=== PATIENT | female | born 1960 | race Caucasian/White ===

== ENCOUNTER → 2017-09-30 | Outpatient (CLI) | payer OTHER ==
[~2017-09-30] MED LIST: ASPCH81
[2017-09-30 10:41] LABS: BASO % 0.6 %; BASO ABS # 0.04 K/uL (0-0.2); EOS % 9.7 %; EOS ABS # 0.69 K/uL (0-0.5); HEMOGLOBIN 14.7 g/dL (12.0-16.0); IG# 0.01 K/uL (0.00-0.02); LYMPH % 39.5 %; LYMPH ABS # 2.82 K/uL (1.2-3.4); MEAN CELL VOLUME 85.8 fL (80-100); MEAN CORPUSCULAR HEMOGLOBIN 29.3 pg (25-34); MEAN CORPUSCULAR HGB CONC 34.2 g/dl (32-36); MONO % 5.7 %; MONO ABS # 0.41 K/uL (0.11-0.59); NEUT % 44.4 %; NEUT ABS # 3.17 K/uL (1.4-6.5); PLATELET COUNT 209 K/uL (130-400); RED CELL DISTRIBUTION WIDTH CV 14.1 % (11.5-14.5); RED CELL DISTRIBUTION WIDTH SD 43.6 fL (36.4-46.3); WHITE BLOOD COUNT 7.14 K/uL (4.8-10.8)
[2017-09-30 10:58] LABS: ALBUMIN 3.7 gm/dl (3.4-5.0); ALT/SGPT 39 U/L (12-78); BLOOD UREA NITROGEN 15 mg/dl (7-18); CALCIUM 8.8 mg/dl (8.5-10.1); CARBON DIOXIDE 29 mmol/L (21-32); CHOLESTEROL 192 mg/dl (0-200); CREATININE 0.93 mg/dl (0.60-1.20); GLUCOSE 93 mg/dl (70-99); POTASSIUM 3.9 mmol/L (3.5-5.1); SODIUM 140 mmol/L (136-145)
[2017-09-30 11:08] LABS: ALKALINE PHOSPHATASE 96 U/L (45-117); AST/SGOT 17 U/L (15-37); LDL CHOLESTEROL CALCULATED 125 mg/dl; TOTAL PROTEIN 7.1 gm/dl (6.4-8.2)
== END | disposition home or self-care (01) ==
LOC: C.LABBC 07:37
PROVIDERS: ATTEND Neuromusculoskeletal Medicine & OMM
DX: E78.00 Pure hypercholesterolemia, unspecified (principal); E66.9 Obesity, unspecified

== ENCOUNTER → 2017-11-09 | Outpatient (CLI) | payer OTHER ==
--- NOTE | 2017-11-10 07:41 | MAMMOGRAPHY REPORT ---
BILATERAL DIGITAL SCREENING MAMMOGRAM TOMOSYNTHESIS WITH CAD: 11/09/2017 CLINICAL HISTORY: Routine screening. Patient has no complaints. TECHNIQUE: Breast tomosynthesis in addition to standard 2D mammography was performed. Current study was also evaluated with a Computer Aided Detection (CAD) system. COMPARISON: Comparison is made to exams dated: 02/05/2015 mammogram, 02/01/2014 mammogram, 01/31/2013 mamm ogram, 01/29/2012 mammogram, 01/27/2011 mammogram, and 01/24/2010 mammogram - [facility] er. BREAST COMPOSITION: The tissue of both breasts is almost entirely fatty. FINDINGS: The parenchymal pattern is unchanged. No developing mass, architectural distortion or clus ter of suspicious microcalcifications is seen in either breast. IMPRESSION: ACR BI-RADS CATEGORY 2: BENIGN There is no mammographic evidence of malignancy. A 1 year screening mammogram is recommended. The pa tient will receive written notification of the results. Approximately 10% of breast cancers are not detected with mammography. A negative mammographic report should not delay biopsy if a clinically suggestive mass is present. Nichelle Cotto M.D. ay/:11/09/2017 16:20:43 Rope Coiling Machine Operator: Coby SAGE(Willian)(Corky), [facility] letter sent: Normal 1/2 BI-RADS Code: ACR BI-RADS Category 2: Benign
== END | disposition home or self-care (01) ==
LOC: C.MAMM 13:33
PROVIDERS: ATTEND Neuromusculoskeletal Medicine & OMM
DX: Z12.31 Encounter for screening mammogram for malignant neoplasm of breast (principal)

== ENCOUNTER 2021-02-20 14:20 | Observation (INO) ==
--- NOTE | 2021-02-20 16:23 | Emergency Department Note ---
Impression & Plan Inferior vena cava thromboembolism, Iliac DVT (deep venous thrombosis), Acute leg pain ED Provider Note NAME: CATARINA COTA AGE: 60 SEX: F : 1960 ARRIVES VIA: Walk-In INFORMANT: Patient, ED PROVIDER(S): John Alves MD Chief Complaint: Leg pain and swelling HPI: Patient does present with concern for right lower extremity leg pain and swelling. The patient states it typically is exertional with regards to the pain with activity and does develop some swelling which seem to resolve with keeping her feet up. 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 This was in the left lower extremity. Patient denies any fevers chills chest pains or shortness of breath. Patient denies any nausea vomiting. The patient states that this all began the day after 03 February and she had been being more active and thought it was more musculoskeletal. The patient was seen at [facility] had a negative DVT ultrasound was seen in the outpatient setting by her primary care physician Dr. Alvarez who thought that the patient was suffering from a ?piriformis/peroneal syndrome and subsequently had a pelvis adjustment. The patient states that she thought her posture improved but she was still having pain as well as swelling with ambulation. Patient describes the pain is aching primarily worse with going up an incline or stairs. Patient states that she has some discoloration of the right lower extremity today called the office and was referred here for further evaluation and treatment. ROS: See HPI for pertinent positives and negatives. A total of 10 systems were reviewed and otherwise negative. Past medical history: See below Surgical history: See below Social history: See below Physical Exam: GENERAL: Well appearing, well nourished, NAD, non-toxic. Wearing glasses and a mask. EYE EXAM: Normal conjunctiva. PERRL, no anisocoria and EOM's grossly intact w/o pain. NECK: Supple, no nuchal rigidity, no adenopathy, non-tender. No signs of meni ngismus. LUNGS: Clear to auscultation. Normal chest wall mechanics. HEART: NSR, no MRG. ABDOMEN: Abdomen soft, non-tender, normo-active bowel sounds, no masses, no rebound or guarding. BACK: No CVA TTP. SKIN: No rashes and no bruising. UPPER EXTREMITIES: Upper extremities are grossly normal. LOWER EXTREMITIES: Good DP pulse bilaterally, slight cooler to the touch on the right side compared to the left. Negative Homans' sign, no obvious asymmetry. No sensory deficits. NEURO EXAM: A&O x3, cranial nerves II-XII grossly intact, normal speech, moves all 4 extremities on command w/o issue. Differential diagnoses: DVT, arterial clot, musculoskeletal, infection, joint effusion, trauma, lymphedema, idiopathic, CHF, as well as other pathologies. Course: Patient was seen and evaluated the bedside. Full history physical exam was performed. EKG: Normal sinus rhythm, rate of 74, normal intervals, normal axis, no ST changes or T WI. Imaging Studies: See below Cardiac monitoring: An order was placed for continuous cardiac monitoring. The monitor shows a rate of 78 with sinus rhythm. MDM: Patient does present febrile or lower extremity edema and discoloration. The patient symptoms could be consistent with MSK related discomfort versus possible claudication. Patient does have a prior history of DVT secondary to May Thurner syndrome and was subsequently resolved after a year of taking Xarelto. Blood work was obtained EKG was obtained to rule out the possibility of arrhythmia i.e . thromboembolic arrhythmia. The patient did have an arterial as well as venous Doppler study of her right lower extremity. She had ultrasounds, which are negative. Due to the concern for the patient's explanation of persistent swelling and discoloration with ambulation I did discuss a CT scan which the patient was amenable to. Patient did have a CT of the abdomen pelvis completed which did show IVC and iliac clot. I did speak with the on-call vascular surgeon Dr. Rob who stated that the patient may be continued on heparin but no further intervention at this time. I did speak with the on-call hospitalist Dr. Valencia and the patient was admitted to the medicine service. Critical Care: I have personally spent 52 minutes of critical care time in direct management of this patient. This includes bedside care, interpretation of diagnostic studies, and testing, discussion with consultants, patient, and family members, and other require inpatient management activities. This 52 minutes is in excess of all separately billable procedures. Past Med/Surg History Medical History (Updated 02/20/21 @ 21:42 by John Alves MD) Chronic back pain History of Lyme disease Psoriasis Surgical History H/O tubal ligation History of hysterectomy Hx of colonoscopy Hx of tonsillectomy S/P section Family History Father Myocardial infarction Cardiac disorder Mother Alcohol abuse COPD (chronic obstructive pulmonary disease) Liver cancer Gallbladder disease Grandmother (Maternal) Alcohol abuse Cardiac disorder COPD (chronic obstructive pulmonary disease) Liver cancer Myocardial infarction Anxiety Gallbladder disease Family/Other History of blood clots Sister Anxiety Gallbladder disease Denies family history of Ovarian cancer Prostate cancer Breast cancer Colorectal cancer Social History Smoking Status: Never smoker Second Hand Exposure: No; Hx Alcohol Use: No Hx Substance Use: No Preferred Language: Icelandic Communication Ability: Effective Visual Impairment: No Limitations Hearing Ability: Normal marital status: Current Living Situation: Spouse current occupational status: employed 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 Safe at Home: Yes Childhood Exposure to Second-Hand Smoke: Yes Dental Care, Regularly: Yes Physical Activity Frequency: Daily Seatbelt Use: always Sunscreen Use: Yes Allergies Allergies Allergy/AdvReac Type Severity Reaction Status Date / Time No Known Allergies Allergy Unknown Verified 02/18/21 11:21 Home Meds Home Medications Medication Instructions Recorded Confirmed multivitamin 1 tab PO DAILY 05/22/18 02/20/21 aspirin 81 mg tablet,delayed 81 mg PO QPM 02/20/21 02/20/21 release docusate sodium 100 mg capsule 100 mg PO DAILY 02/20/21 02/20/21 (Stool Softener) omega-3 fatty acids 1 cap PO DAILY 02/20/21 02/20/21 Previous Rx's Medication Instructions Recorded propranolol 20 mg tablet 20 mg PO BID #180 tab 01/02/21 Results & Data (ED) Vital Signs Vital Signs - 24 hr 02/20/21 14:30 02/20/21 16:41 02/20/21 17:00 Temperature 36.9 C Temperature Source Oral Pulse Rate 80 73 76 Pulse Rate from SpO2 Sensor 75 76 Respiratory Rate 18 20 20 Blood Pressure 189/79 H 148/88 H 159/83 H Blood Pressure Mean 115 108 108 Pulse Oximetry 99 99 98 Oxygen Delivery Method Room Air Sepsis Recent Fever Within 48 Hours No Sepsis New/Unexplained Change in Mental Status No Sepsis Action Taken by Nursing No Action Required 02/20/21 17:33 02/20/21 17:35 02/20/21 19:30 Temperature Temperature Source Pulse Rate 71 74 Pulse Rate from SpO2 Sensor 70 74 Respiratory Rate 18 20 Blood Pressure 149/84 H 155/96 H Blood Pressure Mean 105 115 Pulse Oximetry 99 98 98 Oxygen Delivery Method Room Air Sepsis Recent Fever Within 48 Hours Sepsis New/Unexplained Change in Mental Status Sepsis Action Taken by Nursing 02/20/21 20:00 02/20/21 20:57 02/20/21 21:00 Temperature Temperature Source Pulse Rate 81 78 83 Pulse Rate from SpO2 Sensor 80 Respiratory Rate 20 19 20 Blood Pressure 164/102 H 165/87 H 164/92 H Blood Pressure Mean 122 113 116 Pulse Oximetry 98 98 98 Oxygen Delivery Method Sepsis Recent Fever Within 48 Hours Sepsis New/Unexplained Change in Mental Status Sepsis Action Taken by Long Term Medications Current Medication List: was personally reviewed by me Laboratory Data Attestation: I reviewed the patient's lab results. Result diagrams: 02/20/21 17:06 02/20/21 17:06 Lab Results 02/20/21 02/20/21 02/20/21 Range/Units 17:06 17:06 20:50 WBC 10.02 (4.8-10.8) K/uL RBC 4.95 (4.2-5.4) M/uL Hgb 14.8 (12.0-16.0) g/dL Hct 43.5 (37-47) % MCV 87.9 (80-100) fL MCH 29.9 (25-34) pg MCHC 34.0 (32-36) g/dL RDW Std Deviation 44.4 (36.4-46.3) fL RDW Coeff of Jenelle 13.7 (11.5-14.5) % Plt Count 251 (130-400) K/uL MPV 10.7 H (7.4-10.4) fL Immature Gran % (Auto) 0.2 % Neut % (Auto) 65.6 % Lymph % (Auto) 25.7 % Whitfield % (Auto) 4.3 % Eos % (Auto) 4.0 % Baso % (Auto) 0.2 % Neut # (Auto) 6.57 H (1.4-6.5) K/uL Lymph # (Auto) 2.58 (1.2-3.4) K/uL Whitfield # (Auto) 0.43 (0.11-0.59) K/uL Eos # (Auto) 0.40 (0-0.5) K/uL Baso # (Auto) 0.02 (0-0.2) K/uL Immature Gran # (Auto) 0.02 (0.00-0.02) K/uL APTT 28.0 (21.0-31.0) Seconds PTT Ratio 1.1 Sodium 141 (136-145) mmol/L Potassium 4.0 (3.5-5.1) mmol/L Chloride 108 H (98-107) mmol/L Carbon Dioxide 29 (21-32) mmol/L Anion Gap 4.0 (3-11) BUN 13 (7-18) mg/dl Creatinine 0.97 (0.6-1.2) mg/dl Est Cr Clr Drug Dosing 70.8 ml/min Est GFR ( Amer) 74.1 ml/min Est GFR (Non-Af Amer) 63.9 ml/min BUN/Creatinine Ratio 13.3 (10-20) Glucose 108 H (70-99) mg/dl Calcium 9.6 (8.5-10.1) mg/dl Total Bilirubin 0.5 (0.2-1) mg/dl AST 24 (15-37) U/L ALT 42 (12-78) U/L Alkaline Phosphatase 132 H (45-117) U/L Total Protein 7.8 (6.4-8.2) gm/dl Albumin 3.9 (3.4-5.0) gm/dl Globulin 3.9 (2.5-4.0) gm/dl Albumin/Globulin Ratio 1.0 (0.9-2) COVID-19 Eval Order 02/20/21 Range/Units 21:15 WBC (4.8-10.8) K/uL RBC (4.2-5.4) M/uL Hgb (12.0-16.0) g/dL Hct (37-47) % MCV (80-100) fL MCH (25-34) pg MCHC (32-36) g/dL RDW Std Deviation (36.4-46.3) fL RDW Coeff of Jenelle (11.5-14.5) % Plt Count (130-400) K/uL MPV (7.4-10.4) fL Immature Gran % (Auto) % Neut % (Auto) % Lymph % (Auto) % Whitfield % (Auto) % Eos % (Auto) % Baso % (Auto) % Neut # (Auto) (1.4-6.5) K/uL Lymph # (Auto) (1.2-3.4) K/uL Whitfield # (Auto) (0.11-0.59) K/uL Eos # (Auto) (0-0.5) K/uL Baso # (Auto) (0-0.2) K/uL Immature Gran # (Auto) (0.00-0.02) K/uL APTT (21.0-31.0) Seconds PTT Ratio Sodium (136-145) mmol/L Potassium (3.5-5.1) mmol/L Chloride (98-107) mmol/L Carbon Dioxide (21-32) mmol/L Anion Gap (3-11) BUN (7-18) mg/dl Creatinine (0.6-1.2) mg/dl Est Cr Clr Drug Dosing ml/min Est GFR ( Amer) ml/min Est GFR (Non-Af Amer) ml/min BUN/Creatinine Ratio (10-20) Glucose (70-99) mg/dl Calcium (8.5-10.1) mg/dl Total Bilirubin (0.2-1) mg/dl AST (15-37) U/L ALT (12-78) U/L Alkaline Phosphatase (45-117) U/L Total Protein (6.4-8.2) gm/dl Albumin (3.4-5.0) gm/dl Globulin (2.5-4.0) gm/dl Albumin/Globulin Ratio (0.9-2) COVID-19 Eval Order Covid19 at [facility] Administered Medications Heparin Sodium/Dextrose (Heparin Sodium/Dextrose) 25,000 units in 500 mls @ 0.02 mls/hr IV .Q24H [facility]; Protocol Stop: 03/22/21 20:14 Last Admin: 02/20/21 20:56 Dose: 1,300 units/hr, 26 mls/hr Documented by: [id number] Cosigned by: [id number] Discontinued Medications Heparin Sodium/Dextrose (Heparin Iv Adult Wt-Based Standard *No* Bolus Protocol) 1 ea IV ONE ONE; Protocol Stop: 02/20/21 19:55 Last Admin: 02/20/21 20:57 Dose: Not Given Documented by: [id number] Ioversol (Optiray 320 100ml) 93 ml IV ONCE ONE Stop: 02/20/21 19:17 Last Admin: 02/20/21 19:17 Dose: 93 ml Documented by: [id number] Imaging Data Radiologist's Impression: Duplex Scan Lower Extremity Artery 02/20/21 16:35 RIGHT LOWER EXTREMITY ARTERIAL DOPPLER ULTRASOUND CLINICAL HISTORY: ? signs of claudication COMPARISON STUDY: No previous studies for comparison. TECHNIQUE: Grayscale, color and duplex Doppler sonography of the arterial system of the right lower extremity was performed. FINDINGS: There is triphasic flow within the right common femoral, profunda, superficial femoral and popliteal arteries with biphasic flow within the posterior tibial, anterior tibial, peroneal and dorsalis pedis vessels. No elevated velocities are identified. No vessel occlusion is noted within the right lower extremity. IMPRESSION: Unremarkable right lower extremity arterial Doppler ultrasound. No evidence for a stenosis. Patent vessels. ACT 112: Negative or not required by law. Electronically signed by: Shalom Byrd M.D. 02/20/2021 6:25 PM Venous Doppler Study 02/20/21 16:35 RIGHT LOWER EXTREMITY VENOUS DOPPLER CLINICAL HISTORY: leg pain/swelling COMPARISON STUDY: No previous studies for comparison. TECHNIQUE: Sonography of the deep venous system of the right lower extremity was performed. Compression and augmentation were evaluated. FINDINGS: The right common femoral, superficial femoral and popliteal veins were compressible. Augmentation was normal. Flow was shown within the deep calf vessels. IMPRESSION: No evidence of deep venous thrombus within the right lower ex tremity. ACT 112: Negative or not required by law. Electronically signed by: Shalom Byrd M.D. 02/20/2021 6:17 PM Abdomen/Pelvis CT 02/20/21 18:40 CT OF THE ABDOMEN AND PELVIS WITH CONTRAST CLINICAL HISTORY: RLE swelling/discoloration, negative DVT/art dopp COMPARISON STUDY: CT venogram of the abdomen and pelvis May 22, 2018. TECHNIQUE: Following IV administration of 93 mL of Optiray, axial images of the abdomen and pelvis were obtained from the lung bases to the proximal femurs. Images were reviewed in the axial, sagittal, and coronal planes. IV contrast was administered without complication. Automated exposure control was utilized for the study. A dose lowering technique was utilized adhering to the principles of ALARA. CT DOSE: 588.36 mGy.cm FINDINGS: Lung bases are unremarkable. No pneumatosis, free air or portal venous gas is present. There is hepatic steatosis. The spleen, adrenal glands, kidneys and pancreas are normal. There is no biliary or pancreatic ductal dilatation. The caliber and wall thickness of small and large bowel are normal. The appendix is normal. There is minimal infiltration within the right hemipelvis. Prominent vessels within the pelvis are noted suggestive of collaterals. Note is made of a stent within the left common iliac vein that extends into the IVC. There is thrombus, likely occlusive, within the right common iliac vein. This thrombus extends to the confluence and extends into the stented portion of the IVC. This results in approximate 40% narrowing of the IVC. Thrombus extends into the right external iliac and internal iliac veins. Right common femoral vein is patent. The remainder of the left iliac stent is patent. IMPRESSION: 1. Extensive deep venous thrombus within the right common iliac, internal iliac and external iliac veins, likely occlusive. Thrombus extends into the stented portion of the inferior vena cava and results in 40% narrowing of the IVC. Remainder of left common iliac vein stent patent. Mild right hemipelvic infiltration likely due to the thrombus with prominent collateral vessels. Discussed with Dr. Alves at time of dictation. 3. Hepatic steatosis. ACT 112: Negative or not required by law. Electronically signed by: Shalom Byrd M.D. 02/20/2021 7:50 PM Discharge Plan Visit Data Chief Complaint: Swelling/Edema to Extremity Stated Complaint: R LEG RED AND SWOLLEN, REFERRED BY DOCTOR ED Provider: John Alves Discharge Problem: Inferior vena cava thromboembolism, Iliac DVT (deep venous thrombosis), Acute leg pain Forms Stand Alone Forms: My [facility] Prescriptions Prescriptions: No Action propranolol 20 mg tablet 20 mg PO BID Qty: 180 RF: 1 multivitamin Tablet 1 tab PO DAILY RF: 0 aspirin 81 mg Tablet,Delayed Release (Dr/Ec) 81 mg PO QPM RF: 0 Fish Oil Capsule 1 cap PO DAILY RF: 0 docusate sodium [Stool Softener] 100 mg Capsule 100 mg PO DAILY RF: 0 Referrals Referrals: Yoni Alvarez, [Primary Care Provider] -
[2021-02-20 17:18] LABS: Basophils # (auto) 0.02 K/uL (0-0.2); Basophils % (auto) 0.2 %; Hematocrit (blood only) 43.5 % (37-47); Hemoglobin 14.8 g/dL (12.0-16.0); Immature Granulocytes # (auto) 0.02 K/uL (0.00-0.02); Immature Granulocytes % (auto) 0.2 %; Lymphocytes # (auto) 2.58 K/uL (1.2-3.4); Lymphocytes % (auto) 25.7 %; Mean Corpuscular Hemoglobin 29.9 pg (25-34); Mean Corpuscular Volume 87.9 fL (80-100); Mean Platelet Volume 10.7 fL (7.4-10.4); Monocytes # (auto) 0.43 K/uL (0.11-0.59); Monocytes % (auto) 4.3 %; Neutrophils # (auto) 6.57 K/uL (1.4-6.5); Neutrophils % (auto) 65.6 %; Platelet Count 251 K/uL (130-400); RDW Coefficient of Variation 13.7 % (11.5-14.5); RDW Standard Deviation 44.4 fL (36.4-46.3); Red Blood Count 4.95 M/uL (4.2-5.4); White Blood Count 10.02 K/uL (4.8-10.8)
[2021-02-20 17:36] LABS: Albumin Level 3.9 gm/dl (3.4-5.0); BUN Creatinine Ratio 13.3 (10-20); Calcium 9.6 mg/dl (8.5-10.1); Creatinine Clr Calc Pharmacy 70.8 ml/min; Est GFR (African American) 74.1 ml/min; Est GFR (Non-African American) 63.9 ml/min
[2021-02-20 17:39] LABS: Bilirubin,Total 0.5 mg/dl (0.2-1); Globulin 3.9 gm/dl (2.5-4.0); Total Protein 7.8 gm/dl (6.4-8.2)
--- NOTE | 2021-02-20 18:18 | Ultrasound Report ---
RIGHT LOWER EXTREMITY VENOUS DOPPLER CLINICAL HISTORY: leg pain/swelling COMPARISON STUDY: No previous studies for comparison. TECHNIQUE: Sonography of the deep venous system of the right lower extremity was performed. Compress ion and augmentation were evaluated. FINDINGS: The right common femoral, superficial femoral and popliteal veins were compressible. Augme ntation was normal. Flow was shown within the deep calf vessels. IMPRESSION: No evidence of deep venous thrombus within the right lower extremity. ACT 112: Negative or not required by law. Electronically signed by: Shalom Byrd M.D. 02/20/2021 6:17 PM
--- NOTE | 2021-02-20 18:27 | Ultrasound Report ---
RIGHT LOWER EXTREMITY ARTERIAL DOPPLER ULTRASOUND CLINICAL HISTORY: ? signs of claudication COMPARISON STUDY: No previous studies for comparison. TECHNIQUE: Grayscale, color and duplex Doppler sonography of the arterial system of the right lower e xtremity was performed. FINDINGS: There is triphasic flow within the right common femoral, profunda, superficial femoral and popliteal arteries with biphasic flow within the posterior tibial, anterior tibial, peroneal and dors jessika pedis vessels. No elevated velocities are identified. No vessel occlusion is noted within the ri ght lower extremity. IMPRESSION: Unremarkable right lower extremity arterial Doppler ultrasound. No evidence for a stenos is. Patent vessels. ACT 112: Negative or not required by law. Electronically signed by: Shalom Byrd M.D. 02/20/2021 6:25 PM
[2021-02-20] MEDS ORDERED: OPTIRAY 320 100ml IV ONE (19:16)
--- NOTE | 2021-02-20 19:52 | CT Scan Report ---
CT OF THE ABDOMEN AND PELVIS WITH CONTRAST CLINICAL HISTORY: RLE swelling/discoloration, negative DVT/art dopp COMPARISON STUDY: CT venogram of the abdomen and pelvis May 22, 2018. TECHNIQUE: Following IV administration of 93 mL of Optiray, axial images of the abdomen and pelvis we re obtained from the lung bases to the proximal femurs. Images were reviewed in the axial, sagittal, and coronal planes. IV contrast was administered without complication. Automated exposure control wa s utilized for the study. A dose lowering technique was utilized adhering to the principles of ALARA . CT DOSE: 588.36 mGy.cm FINDINGS: Lung bases are unremarkable. No pneumatosis, free air or portal venous gas is present. Ther e is hepatic steatosis. The spleen, adrenal glands, kidneys and pancreas are normal. There is no bili subha or pancreatic ductal dilatation. The caliber and wall thickness of small and large bowel are norm al. The appendix is normal. There is minimal infiltration within the right hemipelvis. Prominent vess els within the pelvis are noted suggestive of collaterals. Note is made of a stent within the left co mmon iliac vein that extends into the IVC. There is thrombus, likely occlusive, within the right comm on iliac vein. This thrombus extends to the confluence and extends into the stented portion of the IV C. This results in approximate 40% narrowing of the IVC. Thrombus extends into the right external joshua ac and internal iliac veins. Right common femoral vein is patent. The remainder of the left iliac konstantin nt is patent. IMPRESSION: 1. Extensive deep venous thrombus within the right common iliac, internal iliac and external iliac ve ins, likely occlusive. Thrombus extends into the stented portion of the inferior vena cava and result s in 40% narrowing of the IVC. Remainder of left common iliac vein stent patent. Mild right hemipelvi c infiltration likely due to the thrombus with prominent collateral vessels. Discussed with Dr. Alves at time of dictation. 3. Hepatic steatosis. ACT 112: Negative or not required by law. Electronically signed by: Shalom Byrd M.D. 02/20/2021 7:50 PM
[2021-02-20] MEDS ORDERED: Heparin IV Adult Wt-Based Standard *NO* Bolus Protocol IV ONE (19:54)
--- NOTE | 2021-02-20 20:23 | History & Physical Report ---
Date of Service February 20, 2021 Assessment & Plan (1) Iliac DVT (deep venous thrombosis): Plan: Ms. 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, diagnosed in 10/2018 at [facility] following diagnosis of extensive left lower extremity DVT involving the iliac, femoral, popliteal, and tibial veins; she did undergo left common iliac angioplasty/stenting and also was on Xarelto for a total of 1 year (end 2018) Patient reporting approximately 1 month of claudication-like symptoms involving the RLE Venous and arterial Dopplers obtained of the right lower extremity unrevealing CT of the abdomen pelvis demonstrating: "Extensive deep venous thrombus within the right common iliac, internal iliac and external iliac veins, likely occlusive. Thrombus extends into the stented portion of the inferior vena cava and results in 40% narrowing of the IVC. Remainder of left common iliac vein stent patent. Mild right hemipelvic infiltration likely due to the thrombus with prominent collateral vessels." Consult vascular surgery for aid in management upon discharge from the hospital, including need for likely chronic anticoagulation, as well as need for any further imaging Initiate heparin drip while here, started in ER Hypertension, ASCVD prevention Continue propranolol 20 mg p.o. twice daily Continue daily aspirin Code: Full code Diet: Regular diet Prophylaxis: Heparin drip, as above Disposition: MedSurg (2) Raynaud's phenomenon: (3) Hypertension: (4) Situational anxiety: (5) Chronic back pain: History of Present Illness Primary Care Provider: Yoni Alvarez DO Ms. 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 She says that since February 03, she has been experiencing exertionally related pain and swelling within her right leg. Initially, this was thought to be musculoskeletal and did undergo some adjustments with her primary care provider with positive results. However, pain recurred and has gotten worse with exertion, such as with going up stairs. Given her history, she wanted to come to the ER for evaluation. In the ER, patient was found to be hemodynamically stable and without abnormal labs. Arterial duplex and venous duplex involving the right lower extremity did not reveal any focal abnormalities. However, imaging of the abdomen and pelvis did reveal "extensive deep vein thrombosis within the right common iliac, internal iliac, and external iliac veins, likely occlusive." It appears that this extends to the stent that was previously placed in the IVC, resulting in nearly 40% narrowing. Patient was started on heparin gtt. Allergies Allergy/AdvReac Type Severity Reaction Status Date / Time No Known Allergies Allergy Unknown Verified 02/18/21 11:21 Home Medications Medication Instructions Recorded Confirmed Type multivitamin 1 tab PO DAILY 05/22/18 02/20/21 History propranolol 20 mg tablet 20 mg PO BID #180 tab 01/02/21 02/20/21 Rx aspirin 81 mg tablet,delayed 81 mg PO QPM 02/20/21 02/20/21 History release docusate sodium 100 mg capsule 100 mg PO DAILY 02/20/21 02/20/21 History (Stool Softener) omega-3 fatty acids 1 cap PO DAILY 02/20/21 02/20/21 History Past Med/Surg History Medical History Chronic back pain History of Lyme disease Psoriasis Surgical History H/O tubal ligation History of hysterectomy Hx of colonoscopy Hx of tonsillectomy S/P section Family History Father Myocardial infarction Cardiac disorder Mother Alcohol abuse COPD (chronic obstructive pulmonary disease) Liver cancer Gallbladder disease Grandmother (Maternal) Alcohol abuse Cardiac disorder COPD (chronic obstructive pulmonary disease) Liver cancer Myocardial infarction Anxiety Gallbladder disease Family/Other History of blood clots Sister Anxiety Gallbladder disease Denies family history of Ovarian cancer Prostate cancer Breast cancer Colorectal cancer Social History Smoking Status: Never smoker Second Hand Exposure: No; Hx Alcohol Use: No Hx Substance Use: No Preferred Language: Portuguese Communication Ability: Effective Visual Impairment: No Limitations Hearing Ability: Normal Beliefs That Will Affect Care: None marital status: Current Living Situation: Spouse current occupational status: employed 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 Other Information That Helps Us Care for You: No Feels Safe at Home: Yes Safety Concerns: Feels Safe At This Time Childhood Exposure to Second-Hand Smoke: Yes Dental Care, Regularly: Yes Physical Activity Frequency: Daily Seatbelt Use: always Sunscreen Use: Yes Assistive Devices: Glasses Review of Systems Review of Systems: Constitutional: Denies fever, chills Eyes: Denies double vision, vision change, eye pain ENT: Denies ear pain, sore throat, sinus pain Cardiovascular: Denies chest pain, chest pressure, palpitations, extremity swelling Respiratory: Denies shortness of breath, cough, sputum production, difficulty breathing Gastrointestinal: Denies abdominal pain, nausea, vomiting, constipation, diarrhea Genitourinary: Denies urinary symptoms including dysuria Musculoskeletal: Denies weakness, muscle aches/pain, joint aches/pain Integumentary:Denies rash, lesions, bruising Neurological: Denies headache, numbness, tingling, focal weakness Physical Exam Physical Exam: General: Well appearing 60 year old female who is lying back in her hospital bed, relaxed, upon my arrival. NAD. HEENT: NCAT. Eyes - Sclera are white, anicteric, and without injection. PERRL. EOMs display full ROM bilaterally. Mouth - MMM with no tonsillar edema or exudates. Cardiac: Normal rate and regular rhythm; S1 and S2 present with no murmurs, rubs, or gallops. Pulmonary: Good respiratory effort with symmetric expansion of the chest. No use of accessory muscles. Lungs were clear to auscultation bilaterally with no crackles or wheezes. Abdominal: Normoactive bowel sounds. Abdomen was soft, nondistended, and non- tender to palpation. Extremities: Examination of the RLE does demonstrate globally increased edema compared to the LLE. Examination of the underside of the foot does demonstrate purplish discoloration with +blanching. No tenderness to palpation along this leg. Dorsalis pedis pulse 2+ on the RLE, slightly diminished on LLE. Femoral pulse somewhat difficult to palpate on RLE, but is present / 1+ -- suspect diminished secondary to edema. Results & Data Results & Data ([facility]) Vital Signs (Past 12 Hours) Vital Signs Temp Pulse Resp BP Pulse Ox 02/20/21 19:30 74 20 155/96 H 98 02/20/21 17:35 98 02/20/21 17:33 71 18 149/84 H 99 02/20/21 17:00 76 20 159/83 H 98 02/20/21 16:41 73 20 148/88 H 99 02/20/21 14:30 36.9 C 80 18 189/79 H 99 Supervising Physician Co-Signing Physician Notes Attending addendum: I have physically seen this patient, have supervised the medical residents activities, and agree with the H&P unless as otherwise noted. Assessment and Plan: DVT right common iliac veins, internal and external iliac veins/stented left common iliac and IVC- Continue heparin continuous infusion since already begun by the ED. Can likely change to Xarelto that she was on before again tomorrow Vascular surgery will assess patient in the a.m. Hypertension- Continue propranolol 20 mg p.o. twice daily and aspirin daily Remaining orders and notations as noted Resident Activity Tracking Resident Involvement: Resident Care Provided Care Provided: Adult [facility]
[2021-02-20] MEDS: HEPARIN SODIUM/DEXTROSE 25,000 UNITS/500 ML BAG IV SCH (20:56)
[2021-02-20 21:29] LABS: Partial Thromboplastin Ratio 1.1
[2021-02-21] MEDS ORDERED: POLYETHYLENE (MIRALAX) 17 GM PACK PO PRN (00:26)
[2021-02-21] MEDS ORDERED: ACETAMINOPHEN 325 MG TAB PO PRN (00:26)
[2021-02-21] MEDS ORDERED: ONDANSETRON INJ 2 MG/ML 2 ML VIAL IV PRN (00:26)
[2021-02-21 03:01] LABS: Basophils # (auto) 0.02 K/uL (0-0.2); Basophils % (auto) 0.2 %; Eosinophils # (auto) 0.34 K/uL (0-0.5); Eosinophils % (auto) 3.9 %; Hematocrit (blood only) 40.2 % (37-47); Hemoglobin 13.5 g/dL (12.0-16.0); Immature Granulocytes # (auto) 0.02 K/uL (0.00-0.02); Immature Granulocytes % (auto) 0.2 %; Lymphocytes # (auto) 3.24 K/uL (1.2-3.4); Lymphocytes % (auto) 37.6 %; Mean Corpuscular Hemoglobin 29.4 pg (25-34); Mean Corpuscular Hgb Conc 33.6 g/dL (32-36); Mean Corpuscular Volume 87.6 fL (80-100); Mean Platelet Volume 10.4 fL (7.4-10.4); Monocytes # (auto) 0.54 K/uL (0.11-0.59); Monocytes % (auto) 6.3 %; Neutrophils # (auto) 4.46 K/uL (1.4-6.5); Neutrophils % (auto) 51.8 %; Platelet Count 231 K/uL (130-400); RDW Coefficient of Variation 13.8 % (11.5-14.5); RDW Standard Deviation 44.2 fL (36.4-46.3); Red Blood Count 4.59 M/uL (4.2-5.4); White Blood Count 8.62 K/uL (4.8-10.8)
[2021-02-21 03:24] LABS: BUN Creatinine Ratio 14.4 (10-20); Calcium 8.8 mg/dl (8.5-10.1); Creatinine Clr Calc Pharmacy 83.4 ml/min; Est GFR (African American) 90.8 ml/min; Est GFR (Non-African American) 78.3 ml/min; Potassium 3.5 mmol/L (3.5-5.1)
[2021-02-21 03:26] LABS: Partial Thromboplastin Ratio 1.9
[2021-02-21 03:28] LABS: Partial Thromboplastin Time 49.4 Seconds (21.0-31.0)
--- NOTE | 2021-02-21 08:36 | Consultation ---
Date of Consultation February 21, 2021 Assessment & Plan (1) Iliac DVT (deep venous thrombosis): In summary this is a 60-year-old female who was treated for may Thurner syndrome in the past.This was treated with stenting of the left iliac vein with extension of the stent at the proximal inferior vena cava.She is now developed thrombosis of her right common external and internal iliac veins. I would continue heparin for another [address] her on Xarelto for at least 6 months with routine follow-up with imaging of the iliac system. Thrombolysis with tissue plasminogen activator is not indicated at this time be that she has a left iliac stent which extends into the vena cava. No vena cava filter is needed at this point being that she does have a stent present in the vena cava which she is acting as a filter at this point. She should follow-up with her vascular surgeon with [facility] after discharge. Thank you very much for letting us participate in the care of this patient. Chronicity: acute Laterality: right Qualified Code(s): I82.421 - Acute embolism and thrombosis of right iliac vein History of Present Illness Reason for Consultation: Right iliac venous thrombosis Attending Physician: Sandoval Conley MD History of Present Illness This is a 60-year-old female who started developing swelling of her right lower extremity proximally 2 weeks prior to this. She was seen in [place] and worked up with ultrasounds of her bilateral lower extremity venous systems as well as her left iliac system.She was told at that time that she had no evidence of deep venous thrombosis of the lower extremity. The left iliac as well as the iliac and cava stent were patent.In 2018 she developed deep venous thrombosis of the left lower extremity.She was placed on heparin followed by Xarelto. The clot eventually cleared up.She was found to have a May Thurner syndrome which was treated with stenting of the iliac.The iliac stent however extended well into the vena cava.She has been fine since that time with no evidence of deep venous thrombosis until this episode.CT scan done in the emergency room showed deep venous thrombosis of her external/internal iliac veins on the right side.The common iliac vein on the right was also thrombosed.Her left side showed that the iliacs are patent. The left common iliac stent was also patent. The stent however extends from the common iliac vein well into the vena cava above the confluence of the right and left iliac vein. Allergies Allergy/AdvReac Type Severity Reaction Status Date / Time No Known Allergies Allergy Unknown Verified 02/18/21 11:21 Home Medications Medication Instructions Recorded Confirmed Type multivitamin 1 tab PO DAILY 05/22/18 02/20/21 History propranolol 20 mg tablet 20 mg PO BID #180 tab 01/02/21 02/20/21 Rx aspirin 81 mg tablet,delayed 81 mg PO QPM 02/20/21 02/20/21 History release docusate sodium 100 mg capsule 100 mg PO DAILY 02/20/21 02/20/21 History (Stool Softener) omega-3 fatty acids 1 cap PO DAILY 02/20/21 02/20/21 History Patient History Medical History Chronic back pain History of Lyme disease Psoriasis Surgical History H/O tubal ligation History of hysterectomy Hx of colonoscopy Hx of tonsillectomy S/P section Family History Father Myocardial infarction Cardiac disorder Mother Alcohol abuse COPD (chronic obstructive pulmonary disease) Liver cancer Gallbladder disease Grandmother (Maternal) Alcohol abuse Cardiac disorder COPD (chronic obstructive pulmonary disease) Liver cancer Myocardial infarction Anxiety Gallbladder disease Family/Other History of blood clots Sister Anxiety Gallbladder disease Denies family history of Ovarian cancer Prostate cancer Breast cancer Colorectal cancer Social History Smoking Status: Never smoker Second Hand Exposure: No; Hx Alcohol Use: No Hx Substance Use: No Preferred Language: Korean Communication Ability: Effective Visual Impairment: No Limitations Hearing Ability: Normal Beliefs That Will Affect Care: None marital status: Current Living Situation: Spouse current occupational status: employed 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 Other Information That Helps Us Care for You: No Feels Safe at Home: Yes Safety Concerns: Feels Safe At This Time Childhood Exposure to Second-Hand Smoke: Yes Dental Care, Regularly: Yes Physical Activity Frequency: Daily Seatbelt Use: always Sunscreen Use: Yes Assistive Devices: Glasses Review of Systems Review of Systems: All systems reviewed & are unremarkable except as noted in HPI & below Physical Exam Constitutional: WD/WN, vitals as above Respiratory: normal respiratory effort; no respiratory distress Cardiovascular: Rate/Rhythm: regular rate and regular rhythm Vessels: normal peripheral pulses Extremities: normal capillary refill and + edema (Entire right lower extremity.) Musculoskeletal: Extremities: extremities normal to inspection; no cyanosis Psychiatric: Orientation: alert and oriented x 3 Results & Data ([facility]) Vital Signs (Past 12 Hours) Vital Signs Temp Pulse Pulse Resp BP BP BP 02/21/21 07:46 36.7 C 71 18 124/75 02/21/21 01:06 36.7 C 81 18 141/81 H 02/20/21 22:30 83 14 139/96 02/20/21 22:00 78 14 132/92 02/20/21 21:30 72 12 131/90 02/20/21 21:00 83 20 164/92 H 02/20/21 20:57 78 19 165/87 H Pulse Ox 02/21/21 07:46 99 02/21/21 01:06 98 02/20/21 22:30 98 02/20/21 22:00 98 02/20/21 21:30 98 02/20/21 21:00 98 02/20/21 20:57 98
--- NOTE | 2021-02-21 08:45 | Electrocardiogram Report ---
Test Reason : Blood Pressure : / mmHG Vent. Rate : 074 BPM Atrial Rate : 074 BPM P-R Int : 170 ms QRS Dur : 092 ms QT Int : 418 ms P-R-T Axes : 035 015 024 degrees QTc Int : 463 ms Normal sinus rhythm Incomplete right bundle branch block Borderline ECG When compared with ECG of 22-MAY-2018 11:21, No significant change was found Confirmed by Piotr Orantes ([id number]) on 02/21/2021 8:45:25 AM Referred By: Yoni Alvarez Confirmed By:Piotr Orantes
--- NOTE | 2021-02-21 09:25 | Medical Student Progress Note ---
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, diagnosed in 10/2018 at [facility] following diagnosis of extensive left lower extremity DVT involving the iliac, femoral, popliteal, and tibial veins; she did undergo left common iliac angioplasty/stenting and also was on Xarelto for a total of 1 year (end 2018) Patient reporting approximately 1 month of claudication-like symptoms involving the RLE Venous and arterial Dopplers obtained of the right lower extremity unrevealing CT of the abdomen pelvis demonstrating: "Extensive deep venous thrombus within the right common iliac, internal iliac and external iliac veins, likely occlusive. Thrombus extends into the stented portion of the inferior vena cava and results in 40% narrowing of the IVC. Remainder of left common iliac vein stent patent. Mild right hemipelvic infiltration likely due to the thrombus with prominent collateral vessels." -Vascular surgery consulted: recommends continuing heparin for 24h, then Xarelto for >6mo with routine f/u & imaging of her iliacs. She should be fitted for compression stockings to be worn up to her right thigh. Does not recommend vena filter at this time since she has one placed. She should f/u with vascular surgeon with [facility] after discharge -- Consult appreciated -Continue heparin drip Hypertension, ASCVD prevention: Continue propranolol 20 mg p.o. twice daily Continue daily aspirin Code: Full code Diet: Regular diet Prophylaxis: Heparin drip, as above Disposition: [facility] Chronicity: acute Laterality: right Qualified Code(s): I82.421 - Acute embolism and thrombosis of right iliac vein Admission and Anticipated Discharge Date Admission Date: February 20, 2021 Subjective Overall, patient says she's doing well. Resting comfortably in bed while seeing her. She says her right leg feels a bit warm and swollen, as it had been before admission, but does not feel that she is worsening. Leg pain is most prominent when she is on her feet. She does not endorse any current leg pain, numbness, or tingling of the extremities, shortness of breath, chest pain, or palpitations. Review of Systems Review of Systems: All systems reviewed & are unremarkable except as noted in Subjective Physical Exam Physical Exam: General: Well appearing 60 year old female who is lying back in her hospital bed, relaxed, upon my arrival. NAD. Cardiac: Normal rate and regular rhythm; S1 and S2 present with no murmurs, rubs, or gallops. Pulmonary: Good respiratory effort with symmetric expansion of the chest. No use of accessory muscles. Lungs were clear to auscultation bilaterally with no crackles or wheezes. Extremities: Examination of the RLE does demonstrate globally increased edema compared to the LLE. Slight discoloration of the right extremity with blanching. No tenderness to palpation along this leg. Dorsalis pedis pulse 2+ on the RLE. Constitutional: WD/WN, vitals as above Respiratory: normal respiratory effort; no respiratory distress Cardiovascular: Rate/Rhythm: regular rate and regular rhythm Vessels: normal peripheral pulses Extremities: normal capillary refill and + edema (Entire right lower extremity.) Musculoskeletal: Extremities: extremities normal to inspection; no cyanosis Psychiatric: Orientation: alert and oriented x 3 Results & Data ([facility]) Vital Signs (Past 12 Hours) Vital Signs Temp Pulse Pulse Resp BP BP BP 02/21/21 07:46 36.7 C 71 18 124/75 02/21/21 01:06 36.7 C 81 18 141/81 H 02/20/21 22:30 83 14 139/96 02/20/21 22:00 78 14 132/92 02/20/21 21:30 72 12 131/90 Pulse Ox 02/21/21 07:46 99 02/21/21 01:06 98 02/20/21 22:30 98 02/20/21 22:00 98 02/20/21 21:30 98 Laboratory Results Laboratory Results WBC 8.62 K/uL (4.8-10.8) 02/21/21 02:45 RBC 4.59 M/uL (4.2-5.4) 02/21/21 02:45 Hgb 13.5 g/dL (12.0-16.0) 02/21/21 02:45 Hct 40.2 % (37-47) 02/21/21 02:45 MCV 87.6 fL (80-100) 02/21/21 02:45 MCH 29.4 pg (25-34) 02/21/21 02:45 MCHC 33.6 g/dL (32-36) 02/21/21 02:45 RDW Std Deviation 44.2 fL (36.4-46.3) 02/21/21 02:45 RDW Coeff of Jenelle 13.8 % (11.5-14.5) 02/21/21 02:45 Plt Count 231 K/uL (130-400) 02/21/21 02:45 MPV 10.4 fL (7.4-10.4) 02/21/21 02:45 Immature Gran % (Auto) 0.2 % 02/21/21 02:45 Neut % (Auto) 51.8 % 02/21/21 02:45 Lymph % (Auto) 37.6 % 02/21/21 02:45 [place] % (Auto) 6.3 % 02/21/21 02:45 Eos % (Auto) 3.9 % 02/21/21 02:45 Baso % (Auto) 0.2 % 02/21/21 02:45 Neut # (Auto) 4.46 K/uL (1.4-6.5) 02/21/21 02:45 Lymph # (Auto) 3.24 K/uL (1.2-3.4) 02/21/21 02:45 [place] # (Auto) 0.54 K/uL (0.11-0.59) 02/21/21 02:45 Eos # (Auto) 0.34 K/uL (0-0.5) 02/21/21 02:45 Baso # (Auto) 0.02 K/uL (0-0.2) 02/21/21 02:45 Immature Gran # (Auto) 0.02 K/uL (0.00-0.02) 02/21/21 02:45 APTT 49.4 Seconds (21.0-31.0) H* 02/21/21 02:45 PTT Ratio 1.9 02/21/21 02:45 Sodium 140 mmol/L (136-145) 02/21/21 02:45 Potassium 3.5 mmol/L (3.5-5.1) 02/21/21 02:45 Chloride 108 mmol/L (98-107) H 02/21/21 02:45 Carbon Dioxide 28 mmol/L (21-32) 02/21/21 02:45 Anion Gap 4.0 (3-11) 02/21/21 02:45 BUN 12 mg/dl (7-18) 02/21/21 02:45 Creatinine 0.82 mg/dl (0.6-1.2) 02/21/21 02:45 Est Cr Clr Drug Dosing 83.4 ml/min 02/21/21 02:45 Est GFR ( Amer) 90.8 ml/min 02/21/21 02:45 Est GFR (Non-Af Amer) 78.3 ml/min 02/21/21 02:45 BUN/Creatinine Ratio 14.4 (10-20) 02/21/21 02:45 Glucose 100 mg/dl (70-99) H 02/21/21 02:45 Calcium 8.8 mg/dl (8.5-10.1) 02/21/21 02:45 Total Bilirubin 0.5 mg/dl (0.2-1) 02/20/21 17:06 AST 24 U/L (15-37) 02/20/21 17:06 ALT 42 U/L (12-78) 02/20/21 17:06 Alkaline Phosphatase 132 U/L (45-117) H 02/20/21 17:06 Total Protein 7.8 gm/dl (6.4-8.2) 02/20/21 17:06 Albumin 3.9 gm/dl (3.4-5.0) 02/20/21 17:06 Globulin 3.9 gm/dl (2.5-4.0) 02/20/21 17:06 Albumin/Globulin Ratio 1.0 (0.9-2) 02/20/21 17:06 COVID-19 Eval Order Covid19 at [facility] 02/20/21 21:15 SARS-CoV-2 (PCR) NEGATIVE (Negative) 02/20/21 21:15 Impressions Duplex Scan Lower Extremity Artery 02/20/21 16:35 RIGHT LOWER EXTREMITY ARTERIAL DOPPLER ULTRASOUND CLINICAL HISTORY: ? signs of claudication COMPARISON STUDY: No previous studies for comparison. TECHNIQUE: Grayscale, color and duplex Doppler sonography of the arterial system of the right lower extremity was performed. FINDINGS: There is triphasic flow within the right common femoral, profunda, superficial femoral and popliteal arteries with biphasic flow within the posterior tibial, anterior tibial, peroneal and dorsalis pedis vessels. No eleva collin velocities are identified. No vessel occlusion is noted within the right lower extremity. IMPRESSION: Unremarkable right lower extremity arterial Doppler ultrasound. No evidence for a stenosis. Patent vessels. ACT 112: Negative or not required by law. Electronically signed by: Shalom Byrd M.D. 02/20/2021 6:25 PM Venous Doppler Study 02/20/21 16:35 RIGHT LOWER EXTREMITY VENOUS DOPPLER CLINICAL HISTORY: leg pain/swelling COMPARISON STUDY: No previous studies for comparison. TECHNIQUE: Sonography of the deep venous system of the right lower extremity was performed. Compression and augmentation were evaluated. FINDINGS: The right common femoral, superficial femoral and popliteal veins were compressible. Augmentation was normal. Flow was shown within the deep calf vessels. IMPRESSION: No evidence of deep venous thrombus within the right lower extremity. ACT 112: Negative or not required by law. Electronically signed by: Shalom Byrd M.D. 02/20/2021 6:17 PM Abdomen/Pelvis CT 02/20/21 18:40 CT OF THE ABDOMEN AND PELVIS WITH CONTRAST CLINICAL HISTORY: RLE swelling/discoloration, negative DVT/art dopp COMPARISON STUDY: CT venogram of the abdomen and pelvis May 22, 2018. TECHNIQUE: Following IV administration of 93 mL of Optiray, axial images of the abdomen and pelvis were obtained from the lung bases to the proximal femurs. Images were reviewed in the axial, sagittal, and coronal planes. IV contrast was administered without complication. Automated exposure control was utilized for the study. A dose lowering technique was utilized adhering to the principles of ALARA. CT DOSE: 588.36 mGy.cm FINDINGS: Lung bases are unremarkable. No pneumatosis, free air or portal venous gas is present. There is hepatic steatosis. The spleen, adrenal glands, kidneys and pancreas are normal. There is no biliary or pancreatic ductal dilatation. The caliber and wall thickness of small and large bowel are normal. The appendix is normal. There is minimal infiltration within the right hemipelvis. Prominent vessels within the pelvis are noted suggestive of collaterals. Note is made of a stent within the left common iliac vein that extends into the IVC. There is thrombus, likely occlusive, within the right common iliac vein. This thrombus extends to the confluence and extends into the stented portion of the IVC. This results in approximate 40% narrowing of the IVC. Thrombus extends into the right external iliac and internal iliac veins. Right common femoral vein is patent. The remainder of the left iliac stent is patent. IMPRESSION: 1. Extensive deep venous thrombus within the right common iliac, internal iliac and external iliac veins, likely occlusive. Thrombus extends into the stented portion of the inferior vena cava and results in 40% narrowing of the IVC. Remainder of left common iliac vein stent patent. Mild right hemipelvic infil tration likely due to the thrombus with prominent collateral vessels. Discussed with Dr. Alves at time of dictation. 3. Hepatic steatosis. ACT 112: Negative or not required by law. Electronically signed by: Shalom Byrd M.D. 02/20/2021 7:50 PM Medications Administered Current Inpatient Medications Acetaminophen (Acetaminophen 325 Mg Tab) 650 mg PO Q4H PRN PRN Reason: pain/fever Stop: 03/23/21 00:25 Aspirin (Aspirin 81 Mg Ectab) 81 mg PO QPM DENA Stop: 03/23/21 20:59 Docusate Sodium (Docusate Sodium 100 Mg Cap) 100 mg PO DAILY DENA Stop: 03/23/21 08:59 Fish Oil (Garita-3 (Purified Fish Oil) 1 Gm Cap) 1 gm PO DAILY DENA Stop: 03/23/21 08:59 Heparin Sodium/Dextrose (Heparin Sodium/Dextrose) 25,000 units in 500 mls @ 26 mls/hr IV .[id number] DENA; Protocol Stop: 03/22/21 20:14 Last Titration: 02/21/21 03:00 Dose: 1,300 units/hr, 26 mls/hr Documented by: Multivitamins (Multivitamin Tab) 1 tab PO DAILY DENA Stop: 03/23/21 08:59 Ondansetron HCl (Ondansetron Inj 2 Mg/Ml 2 Ml Vial) 4 mg IV Q6H PRN PRN Reason: Nausea Stop: 03/23/21 00:25 Polyethylene Glycol (Polyethylene (Miralax) 17 Gm Pack) 17 gm PO DAILY PRN PRN Reason: Constipation Stop: 03/23/21 00:25 Propranolol HCl (Propranolol Hcl 20 Mg Tab) 20 mg PO BID DENA Stop: 03/23/21 08:59
[2021-02-21] MEDS: MULTIVITAMIN TAB PO SCH (09:34)
[2021-02-21] MEDS: OMEGA-3 (PURIFIED FISH OIL) 1 GM CAP PO SCH (09:34)
[2021-02-21] MEDS: DOCUSATE SODIUM 100 MG CAP PO SCH (09:34)
[2021-02-21] MEDS: PROPRANOLOL HCL 20 MG TAB PO SCH ×2 (09:35→21:06)
[2021-02-21] MEDS: HEPARIN SODIUM/DEXTROSE 25,000 UNITS/500 ML BAG IV SCH (16:07)
[2021-02-21 19:36] LABS: Basophils # (auto) 0.02 K/uL (0-0.2); Basophils % (auto) 0.3 %; Eosinophils # (auto) 0.33 K/uL (0-0.5); Eosinophils % (auto) 4.3 %; Hematocrit (blood only) 40.4 % (37-47); Hemoglobin 13.6 g/dL (12.0-16.0); Immature Granulocytes # (auto) 0.01 K/uL (0.00-0.02); Immature Granulocytes % (auto) 0.1 %; Lymphocytes # (auto) 3.02 K/uL (1.2-3.4); Lymphocytes % (auto) 39.3 %; Mean Corpuscular Hemoglobin 29.3 pg (25-34); Mean Corpuscular Volume 87.1 fL (80-100); Mean Platelet Volume 10.7 fL (7.4-10.4); Monocytes # (auto) 0.59 K/uL (0.11-0.59); Monocytes % (auto) 7.7 %; Neutrophils # (auto) 3.72 K/uL (1.4-6.5); Neutrophils % (auto) 48.3 %; Platelet Count 217 K/uL (130-400); RDW Coefficient of Variation 13.9 % (11.5-14.5); RDW Standard Deviation 44.3 fL (36.4-46.3); Red Blood Count 4.64 M/uL (4.2-5.4); White Blood Count 7.69 K/uL (4.8-10.8)
--- NOTE | 2021-02-21 19:36 | Billing Data ---
Date of Service February 21, 2021 Coding Level of Care Code 16005 Subseq Obs Care Lvl 3
[2021-02-21 19:39] LABS: Mean Corpuscular Hgb Conc 33.7 g/dL (32-36)
--- NOTE | 2021-02-21 19:48 | Billing Data ---
Date of Service February 21, 2021 Coding Level of Care Code INT OBSERVATION CARE 70M LVL 3
[2021-02-21 19:56] LABS: Partial Thromboplastin Ratio 2.1
[2021-02-21 20:14] LABS: Partial Thromboplastin Time 54.8 Seconds (21.0-31.0)
[2021-02-21] MEDS ORDERED: ASPIRIN 81 MG ECTAB PO SCH (21:00)
[2021-02-22] MEDS: DOCUSATE SODIUM 100 MG CAP PO SCH (08:58)
[2021-02-22] MEDS: PROPRANOLOL HCL 20 MG TAB PO SCH (08:58)
[2021-02-22] MEDS: OMEGA-3 (PURIFIED FISH OIL) 1 GM CAP PO SCH (08:58)
[2021-02-22] MEDS: MULTIVITAMIN TAB PO SCH (08:58)
[2021-02-22] MEDS ORDERED: RIVAROXABAN 15 MG TAB PO SCH (09:00)
[2021-02-22 09:07] LABS: Basophils # (auto) 0.03 K/uL (0-0.2); Basophils % (auto) 0.5 %; Eosinophils # (auto) 0.35 K/uL (0-0.5); Eosinophils % (auto) 5.5 %; Hematocrit (blood only) 42.9 % (37-47); Hemoglobin 14.3 g/dL (12.0-16.0); Immature Granulocytes # (auto) 0.01 K/uL (0.00-0.02); Immature Granulocytes % (auto) 0.2 %; Lymphocytes # (auto) 2.57 K/uL (1.2-3.4); Mean Corpuscular Hemoglobin 29.4 pg (25-34); Mean Corpuscular Hgb Conc 33.3 g/dL (32-36); Mean Corpuscular Volume 88.1 fL (80-100); Mean Platelet Volume 10.9 fL (7.4-10.4); Monocytes % (auto) 6.2 %; Neutrophils # (auto) 3.06 K/uL (1.4-6.5); Neutrophils % (auto) 47.6 %; Platelet Count 229 K/uL (130-400); RDW Standard Deviation 45.4 fL (36.4-46.3); Red Blood Count 4.87 M/uL (4.2-5.4); White Blood Count 6.42 K/uL (4.8-10.8)
--- NOTE | 2021-02-22 09:22 | Discharge Summary ---
Date of Service February 22, 2021 Admission HPI Per Admitting Provider Ms. Feliciano is a 60-year-old female with a notable history of May Thurner syndrome and related, extensive left lower extremity DVT discovered in May 2018 involving her iliac, femoral, popliteal, and tibial veins that were subsequently treated with Xarelto and angioplasty/stenting in October 2018, Presented to [facility] for evaluation of ongoing RIGHT leg pain. She says that since February 03, she has been experiencing exertionally related pain and swelling within her right leg. Initially, this was thought to be musculoskeletal and did undergo some adjustments with her primary care provider with positive results. However, pain recurred and has gotten worse with exertion, such as with going up stairs. Given her history, she wanted to come to the ER for evaluation. In the ER, patient was found to be hemodynamically stable and without abnormal labs. Arterial duplex and venous duplex involving the right lower extremity did not reveal any focal abnormalities. However, imaging of the abdomen and pelvis did reveal "extensive deep vein thrombosis within the right common iliac, internal iliac, and external iliac veins, likely occlusive." It appears that this extends to the stent that was previously placed in the IVC, resulting in nearly 40% narrowing. Patient was started on heparin gtt. Admission Exam Per Admitting Provider General: Well appearing 60 year old female who is lying back in her hospital bed, relaxed, upon my arrival. NAD. HEENT: NCAT. Eyes - Sclera are white, anicteric, and without injection. PERRL. EOMs display full ROM bilaterally. Mouth - MMM with no tonsillar edema or exudates. Cardiac: Normal rate and regular rhythm; S1 and S2 present with no murmurs, rubs, or gallops. Pulmonary: Good respiratory effort with symmetric expansion of the chest. No use of accessory muscles. Lungs were clear to auscultation bilaterally with no crackles or wheezes. Abdominal: Normoactive bowel sounds. Abdomen was soft, nondistended, and non- tender to palpation. Extremities: Examination of the RLE does demonstrate globally increased edema compared to the LLE. Examination of the underside of the foot does demonstrate purplish discoloration with +blanching. No tenderness to palpation along this leg. Dorsalis pedis pulse 2+ on the RLE, slightly diminished on LLE. Femoral pulse somewhat difficult to palpate on RLE, but is present / 1+ -- suspect diminished secondary to edema. Principal Diagnosis DVT Discharge Exam Constitutional: well-appearing, no acute distress CV: regular rhythm, no murmur appreciated, extremities well-perfused Resp: CTABL, no wheezes/rales/rhonchi appreciated, no increased work of breathing MSK: RLE slightly larger than LLE, minimally increased warmth to the touch fo RLE vs LLE, minimal tenderness of RLE, trace pitting edema appreciated Skin: warm, dry, no rash appreciated Neuro: AOx4, no focal neurological deficits appreciated Discharge Data Allergies Allergy/AdvReac Type Severity Reaction Status Date / Time No Known Allergies Allergy Unknown Verified 02/18/21 11:21 Consultations 02/20/21 20:10 ED Decision to Admit Stat 02/21/21 00:26 Consult Vascular Surgery Routine Ordered Studies 02/20/21 16:35 US arterial duplex LE RT Stat US venous doppler LE RT Stat 02/20/21 18:40 CT abd pelvis IV con only Stat Hospital Course (1) Iliac DVT (deep venous thrombosis): DVT involving the R Iliac System and IVC Patient was placed on a heparin drip, and vascular was consulted; their recommendation was for patient to continue heparin drip for 24 hours followed by discharge with Xarelto and follow-up. Patient had an uneventful hospital course and was discharged on hospital day two in stable condition. Patient was discharged with a 21-day course of Xarelto 15mg twice daily, after which patient will reduce her dose/frequency to Xarelto 20mg once daily. Given patient's history of May-Thurner syndrome and history of extensive LLE DVT requiring left common iliac angioplasty/stent placement, we feel it is most appropriate for patient to be continued on anticoagulants indefinitely. Patient was counseled on this possibility and both understood and agreed with this recommendation. Close PCP follow-up was recommended. Hypertension, ASCVD prevention Patient's home dose propranolol and ASA were continued during this hospitalization. (2) Raynaud's phenomenon: (3) Hypertension: (4) Situational anxiety: (5) Chronic back pain: Total Time Total Time Spent Total Time Spent (In Minutes): <30 Discharge Plan Discharge Items Patient Disposition: Home - Self-Care Reason For Visit: DVT OF R ILIAC SYS Discharge Diagnosis: DVT Activity: Resume your previous activity Non-emergency contact: Primary Care Provider Call non-emergency contact if: your symptoms worsen Follow-up/Referrals: Yoni Alvarez DO [Primary Care Provider] - 03/06/21 9:20 am Antonio Rob MD [Physician] - (Follow up with your vascular surgeon from [facility] If any questions, you can call our office at [phone]) Diet: Regular Addtl Attending Provider Instructions: You were admitted to the hospital for DVT (deep vein thrombosis, or a clot in one of your veins). This is suspected to be largely due to your known history of May-Thurner syndrome. You were treated in the hospital with IV heparin, and you were evaluated by our vascular team. We feel it is very safe for you to continue your treatment at home with Xarelto. As previously discussed, you will likely need to be on Xarelto for a long period of time, possibly indefinitely. You've been provided with a Xarelto savings card to help reduce your gzo-vv-jxzkdt cost of this medicine, as it can be expensive. When the end of this 90-day savings program is approaching, it will be very important for you to talk with your PCP to explore additional ways you can continue to receive Xarelto at an affordable turner. A discharge summary will be sent to your primary care physician to ensure continuity of care. Please bring this discharge summary with you to your next office appointment so that your provider can review it at that time. Follow-up appointments: Make a follow-up appointment with your PCP within the next week. It is very important that you follow up with them shortly after discharge from the hospital. Keep all your follow-up appointments as already scheduled. If you cannot make an appointment, notify your provider. Activity: The leg swelling associated with DVTs can be uncomfortable or painful. Remember to use the following strategies to help reduce these symptoms, as we discussed in the hospital: * Remember to wear your thigh-high compression stockings as frequently and for as long as you're able to tolerate * When possible, elevate your legs when seated. * Try to be as physically active as possible. * When driving long distances, take frequent breaks to get out of the car and walk a bit before resuming your drive. * When flying, try to get an aisle seat so you can take brief walks every 30-60 minutes. * Work with your PCP if you struggle to incorporate any of the above strategies into your daily life. Medications: Your medication list has been reviewed and reconciled upon discharge to ensure accuracy and continuity of care. An updated list of all your medications is included with your hospital discharge paperwork. Please review this list closely, and make note of any changes. * We sent a new medication called Xarelto to your pharmacy. Take Xarelto (15mg) one tablet twice daily for 21 days (through March 14). * After 21 days, your dose and frequency of taking Xarelto will change. Starting March 15, take Xarelto (20mg) once daily. We sent this prescription to your pharmacy as well. * Sometimes, pharmacies prefer to only fill about one month's worth of medicine at a time. If your pharmacy only provides you withe the first 21 days of Xarelto, discuss with them to make sure they will fill the adjusted dose, which starts March 15. Take your medications as instructed; do not skip a dose of your medicines. Make sure all of your doctors know every medicine you are taking (including otdj-qyq-nxnykft medicines, vitamins, and supplements). Call your primary care provider before taking any new medicines (including eqjp-urk-tndiufp medicines, vitamins, and supplements), because some of these may interact with your current medications, or may make your symptoms worse. Tell your primary care provider if you cannot afford your medications. CONTACT YOUR PRIMARY CARE PROVIDER if you experience any of the following: Worsening swelling of your legs Increased lower extremity warmth, redness, or tenderness Difficulty following your treatment plan, or difficulty taking medications CALL 911 OR GO TO THE EMERGENCY DEPARTMENT if you experience any of the following: Sudden, severe abdominal pain or nausea/vomiting Severe chest pain, or chest pain that radiates (moves) to your jaw or arm Sudden, severe shortness of breath or difficulty breathing Thank you for allowing us to participate in your care. Pending Studies at Discharge: No Stand-Alone Forms: My [facility] Medications and DC Order Prescriptions: New Xarelto 15 mg Tablet 15 mg PO BID 21 Days Qty: 42 RF: 0 Xarelto 20 mg tablet 20 mg PO DAILY Qty: 30 RF: 2 Continued propranolol 20 mg tablet 20 mg PO BID Qty: 180 RF: 1 multivitamin Tablet 1 tab PO DAILY RF: 0 aspirin 81 mg Tablet,Delayed Release (Dr/Ec) 81 mg PO QPM RF: 0 omega-3 fatty acids Capsule 1 cap PO DAILY RF: 0 docusate sodium [Stool Softener] 100 mg Capsule 100 mg PO DAILY RF: 0 Discharge Orders: Discharge Order (Routine); Ordered 02/22/21 Ordered By: John Beckman Admission Data Admit Date/Time: 02/20/21 23:30 Attending Provider: Marco Antonio Brock Admit Provider: Marco Antonio Kumari Primary Care Provider: Yoni Alvarez Other Providers: Sandoval Conley ; Antonio Rob Other Interventions: Discharge Summary Assessment (RN) Last Done: 02/22/21 11:15 Supervising Physician Co-Signing Physician Notes I personally examined the patient and verified all francois points of history and exam, discussed case, and agree with decision making with Dr Beckman Feels up to going home Vitals noted, in general she is awake and alert pleasant no distress. HEENT normocephalic atraumatic mucous membranes moist. Breathing unlabored no accessory muscle use good effort. Right lower extremity now in a compression sockvisually this appears to have improved the swelling quite significantly. Extensive iliac DVT/recurrent DVTanticoagulationthis time indefinitely. Discussed some treatment/prevention measures for venous stasis that can come post DVT as well. Stable for home on Xarelto Resident Activity Tracking Resident Involvement: Resident Care Provided Care Provided: Adult Hospital Medicine
[2021-02-22 09:32] LABS: Prothrombin Time 10.4 Seconds (9.0-12.0)
[2021-02-22 09:49] LABS: Partial Thromboplastin Ratio 2.5
[2021-02-22 09:51] LABS: Partial Thromboplastin Time 66.3 Seconds (21.0-31.0)
[2021-02-22 10:19] LABS: BUN Creatinine Ratio 10.7 (10-20); Calcium 9.2 mg/dl (8.5-10.1); Creatinine Clr Calc Pharmacy 70.5 ml/min; Est GFR (African American) 74.1 ml/min; Est GFR (Non-African American) 63.9 ml/min
--- NOTE | 2021-02-22 19:35 | Billing Data ---
Date of Service February 22, 2021 Coding Level of Care Code 42535 OBS Care - Discharge
== END 2021-02-22 12:37 | disposition home or self-care (01) ==
LOC: 3W 14:20 → ED 14:20 → SUATTDRO 23:30 → 3W 02-21

== ENCOUNTER 2022-02-10 16:14 | Observation (INO) ==
[2022-02-10] MEDS ORDERED: ONDANSETRON INJ 2 MG/ML 2 ML VIAL IV STA (17:08)
[2022-02-10] MEDS ORDERED: SODIUM CHLORIDE 0.9% 1000ML 1,000 ML IV STA (17:08)
[2022-02-10] MEDS ORDERED: MoRPHine SULFATE 4 MG/ML 1 ML CARP\\VIAL IV STA (17:15)
--- NOTE | 2022-02-10 17:17 | Emergency Department Note ---
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 Did take her evening dose of Xarelto yesterday. I will keep anything down today as far as liquids or foods. Some mild upper abdominal discomfort more significant mid back discomfort. No falls. Reports some heartburn symptoms. Denies sick contacts. Did eat leftovers yesterday. Denies diarrheal symptoms. REVIEW OF SYSTEMS: A total of 10 review of systems was obtained and negative except as stated above in the HPI. PAST MEDICAL HISTORY: As noted above and prior hysterectomy MEDICATIONS: Reviewed home medications SOCIAL HISTORY: Lives at home PHYSICAL EXAM: GENERAL: alert and oriented sitting on the stretcher appears uncomfortable with eyes closed. Intermittently retching. Head: normocephalic and atraumatic EYES: No injection, discharge or icterus. NECK: Trachea midline. ENT: Mucous membranes pink and moist. LUNGS: Airway patent. No retractions. Breath sounds clear with good air entry bilaterally. HEART: Regular rate and rhythm. No chest wall tenderness ABDOMEN: Soft mild upper abdominal tenderness diffusely including the right upper quadrant. No peritonitis. BACK: Some slight mid thoracic paraspinal tenderness. SKIN: Acyanotic, warm, dry, without rashes EXTREMITIES: Without swelling, tenderness or deformity NEUROLOGICAL: No focal deficits. No aphasia. No facial droop or slurred speech. Ambulatory. EK bpm incomplete right bundle branch block normal sinus rhythm. No PVC or PAC. No acute ST segment elevation or depression with QTC of 446. CONTINUOUS CARDIAC MONITORING: was ordered and showed a heart rate of 60s-70s bpm in normal sinus rhythm Patient's laboratory studies and imaging reviewed. Differential includes Appendicitis, infections, diverticulitis, UTI, obstruction, mesenteric ischemia, aortic pathology, inflammatory bowel disease, renal colic, PUD, pancreatitis, biliary pathology, hernia, volvulus, constipation, as well as other pathologies. IMPRESSION/MEDICAL DECISION MAKING: Patient appears uncomfortable with significant nausea vomiting since last evening. No sick contacts reported. Leukocytosis on blood work here without anemia. Mild abdominal tenderness but complaining more of a bit of mid back pain. No trauma reported. On anticoagulation for history of blood clots. Not hypoxic here. EKG and troponin completed and reassuring. No severe electrolyte abnormality. Slight lipase elevation and slight ALT and alkaline phosphatase elevation. No bilirubin elevation. CT scan per radiology indicative of acute cholecystitis. She was more comfortable on reevaluation and updated. Discussed with the general surgery team and given a dose of Zosyn. COVID-negative. DIAGNOSIS: Acute cholecystitis, upper abdominal pain, nausea and vomiting DISPOSITION: Surgery to evaluate for the management of cholecystitis Patient was agreeable with this plan. Past Med/Surg History Medical History Acute leg pain Chronic back pain History of Lyme disease Psoriasis Surgical History H/O tubal ligation History of hysterectomy Hx of colonoscopy Hx of tonsillectomy S/P section Family History Father Myocardial infarction Cardiac disorder Mother Alcohol abuse COPD (chronic obstructive pulmonary disease) Liver cancer Gallbladder disease Grandmother (Maternal) Alcohol abuse Cardiac disorder COPD (chronic obstructive pulmonary disease) Liver cancer Myocardial infarction Anxiety Gallbladder disease Family/Other History of blood clots Sister Anxiety Gallbladder disease Denies family history of Ovarian cancer Prostate cancer Breast cancer Colorectal cancer Social History Smoking Status: Never smoker Second Hand Exposure: No; Hx Alcohol Use: No Hx Substance Use: No Preferred Language: Bolivian Communication Ability: Effective Visual Impairment: No Limitations Hearing Ability: Normal Beliefs That Will Affect Care: None marital status: Current Living Situation: Spouse current occupational status: employed 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 Feels Safe at Home: Yes Childhood Exposure to Second-Hand Smoke: Yes Dental Care, Regularly: Yes Physical Activity Frequency: Daily Seatbelt Use: always Sunscreen Use: Yes Assistive Devices: None Allergies Allergies Allergy/AdvReac Type Severity Reaction Status Date / Time No Known Allergies Allergy Unknown Verified 02/10/22 19:14 Home Meds Home Medications Medication Instructions Recorded Confirmed multivitamin 1 tab PO DAILY 05/22/18 02/10/22 aspirin 81 mg tablet,delayed 81 mg PO QPM 02/20/21 02/10/22 release docusate sodium 100 mg capsule 100 mg PO DAILY 02/20/21 02/10/22 (Stool Softener) omega-3 fatty acids 1 cap PO DAILY 02/20/21 02/10/22 rivaroxaban 20 mg tablet (Xarelto) 20 mg PO QDD 02/10/22 02/10/22 Previous Rx's Medication Instructions Recorded hydroxyzine HCl 25 mg tablet 25 mg PO QID PRN #60 tab 03/06/21 propranolol 20 mg tablet 20 mg PO BID #180 tab 09/03/21 ezetimibe 10 mg tablet (Zetia) 10 mg PO DAILY #30 tab 12/06/21 Results & Data (ED) Vital Signs Vital Signs - 24 hr 02/10/22 16:35 02/10/22 17:51 02/10/22 19:31 Temperature 36.2 C L Temperature Source Temporal Artery Scan Pulse Rate 78 Pulse Rate [Finger] 69 Pulse Rhythm [Finger] Pulse Strength [Finger] Respiratory Rate 20 18 Respiratory Effort / Characteristics Non-Labored Spontaneous Respiratory Depth Normal Respiratory Pattern Regular Blood Pressure 169/87 H Blood Pressure [Left Arm] 176/100 H Blood Pressure Mean 114 Blood Pressure Mean [Left Arm] 125 Blood Pressure Position Sitting Blood Pressure Position [Left Arm] Lying Pulse Oximetry 97 94 97 Oxygen Delivery Method Room Air Room Air Room Air Sepsis Recent Fever Within 48 Hours Yes Sepsis New/Unexplained Change in Mental Status No Sepsis Action Taken by Nursing No Action Required 02/10/22 20:05 02/10/22 21:10 Temperature Temperature Source Pulse Rate Pulse Rate [Finger] 67 69 Pulse Rhythm [Finger] Regular Pulse Strength [Finger] Normal Respiratory Rate 16 11 L Respiratory Effort / Characteristics Non-Labored Spontaneous Respiratory Depth Normal Respiratory Pattern Regular Blood Pressure Blood Pressure [Left Arm] 142/67 H 157/98 H Blood Pressure Mean Blood Pressure Mean [Left Arm] 92 117 Blood Pressure Position Blood Pressure Position [Left Arm] Lying Lying Pulse Oximetry 95 94 Oxygen Delivery Method Room Air Room Air Sepsis Recent Fever Within 48 Hours Sepsis New/Unexplained Change in Mental Status Sepsis Action Taken by Nursing Laboratory Data Result diagrams: 02/10/22 17:10 02/10/22 17:10 Lab Results 02/10/22 02/10/22 02/10/22 Range/Units 17:10 17:10 17:40 WBC 14.89 H (4.8-10.8) K/ul RBC 5.74 H (3.93-5.22) M/uL Hgb 16.5 H (12.0-16.0) g/dl Hct 48.1 H (34.1-44.9) % MCV 83.8 (80.0-100.0) fL MCH 28.7 (25.0-34.0) pg MCHC 34.3 (32.0-36.0) g/dL RDW Std Deviation 41.2 (36.4-46.3) fL RDW Coeff of Jenelle 13.5 (11.5-14.5) % Plt Count 226 (130-400) K/uL MPV 11.3 (9.4-12.3) fL Immature Gran % (Auto) 0.3 % Neut % (Auto) 77.6 % Lymph % (Auto) 16.0 % [place] % (Auto) 4.9 % Eos % (Auto) 0.9 % Baso % (Auto) 0.3 % Neut # (Auto) 11.55 H (1.4-6.5) K/uL Lymph # (Auto) 2.38 (1.2-3.4) K/uL [place] # (Auto) 0.73 (0.24-0.82) K/uL Eos # (Auto) 0.13 (0-0.50) K/uL Baso # (Auto) 0.05 (0-0.2) K/uL Immature Gran # (Auto) 0.05 H (0.00-0.02) K/uL Sodium 140 (136-145) mmol/L Potassium 3.7 (3.5-5.1) mmol/L Chloride 102 (98-107) mmol/L Carbon Dioxide 28 (21-32) mmol/L Anion Gap 10 (3-11) BUN 15 (6-23) mg/dl Creatinine 0.95 (0.6-1.2) mg/dl Est Cr Clr Drug Dosing 66.6 ml/min Est GFR ( Amer) 75.5 ml/min Est GFR (Non-Af Amer) 65.1 ml/min BUN/Creatinine Ratio 15.8 (10-20) Glucose 127 H (70-99(Fasting)) mg/dl Calcium 9.5 (8.5-10.1) mg/dl Total Bilirubin 0.8 (0.2-1.0) mg/dl AST 35 (13-39) U/L ALT 57 H (7-52) U/L Alkaline Phosphatase 111 H (34-104) U/L Troponin I High Sens 13.5 (0-14) pg/ml Total Protein 7.7 (6.0-8.3) gm/dl Albumin 4.5 (3.4-5.0) gm/dl Globulin 3.2 (2.5-4.0) gm/dl Albumin/Globulin Ratio 1.4 (0.9-2) Lipase 144 H (11-82) U/L Urine Color Urine Appearance (Clear) Urine pH (4.5-7.5) Ur Specific [place] (1.000-1.030) Urine Protein (Negative) Urine Glucose (UA) (Negative) Urine Ketones (Negative) Urine Blood (Negative) Urine Nitrite (Negative) Urine Bilirubin (Negative) Urine Urobilinogen (Negative) Ur Leukocyte Esterase (Negative) Urine WBC (Auto) (0-5) /hpf Urine RBC (Auto) (0-4) /hpf U Hyaline Cast (Auto) (0-5) /lpf U Epithel Cells (Auto) (0-5) /lpf Urine Bacteria (Auto) (Negative) SARS-CoV-2, RNA, NAAT NEGATIVE (NEGATIVE) 02/10/22 Range/Units 19:01 WBC (4.8-10.8) K/ul RBC (3.93-5.22) M/uL Hgb (12.0-16.0) g/dl Hct (34.1-44.9) % MCV (80.0-100.0) fL MCH (25.0-34.0) pg MCHC (32.0-36.0) g/dL RDW Std Deviation (36.4-46.3) fL RDW Coeff of Jenelle (11.5-14.5) % Plt Count (130-400) K/uL MPV (9.4-12.3) fL Immature Gran % (Auto) % Neut % (Auto) % Lymph % (Auto) % [place] % (Auto) % Eos % (Auto) % Baso % (Auto) % Neut # (Auto) (1.4-6.5) K/uL Lymph # (Auto) (1.2-3.4) K/uL [place] # (Auto) (0.24-0.82) K/uL Eos # (Auto) (0-0.50) K/uL Baso # (Auto) (0-0.2) K/uL Immature Gran # (Auto) (0.00-0.02) K/uL Sodium (136-145) mmol/L Potassium (3.5-5.1) mmol/L Chloride (98-107) mmol/L Carbon Dioxide (21-32) mmol/L Anion Gap (3-11) BUN (6-23) mg/dl Creatinine (0.6-1.2) mg/dl Est Cr Clr Drug Dosing ml/min Est GFR ( Amer) ml/min Est GFR (Non-Af Amer) ml/min BUN/Creatinine Ratio (10-20) Glucose (70-99(Fasting)) mg/dl Calcium (8.5-10.1) mg/dl Total Bilirubin (0.2-1.0) mg/dl AST (13-39) U/L ALT (7-52) U/L Alkaline Phosphatase (34-104) U/L Troponin I High Sens (0-14) pg/ml Total Protein (6.0-8.3) gm/dl Albumin (3.4-5.0) gm/dl Globulin (2.5-4.0) gm/dl Albumin/Globulin Ratio (0.9-2) Lipase (11-82) U/L Urine Color Dark Yellow Urine Appearance Clear (Clear) Urine pH 5.5 (4.5-7.5) Ur Specific [place] > 1.045 H (1.000-1.030) Urine Protein Trace H (Negative) Urine Glucose (UA) Negative (Negative) Urine Ketones 1+ H (Negative) Urine Blood Trace H (Negative) Urine Nitrite Negative (Negative) Urine Bilirubin Negative (Negative) Urine Urobilinogen Negative (Negative) Ur Leukocyte Esterase Trace H (Negative) Urine WBC (Auto) 5-10 H (0-5) /hpf Urine RBC (Auto) 10-30 H (0-4) /hpf U Hyaline Cast (Auto) 1-5 (0-5) /lpf U Epithel Cells (Auto) >30 H (0-5) /lpf Urine Bacteria (Auto) Negative (Negative) SARS-CoV-2, RNA, NAAT (NEGATIVE) Administered Medications Lactated Ringer's (Lr) 1,000 mls @ 125 mls/hr IV .Q8H DENA Stop: 03/12/22 19:59 Last Admin: 02/10/22 21:08 Dose: 125 mls/hr Documented by: [id number] Morphine Sulfate (Morphine Sulfate 4 Mg/Ml 1 Ml Carp\Vial) 3 mg IV Q3H PRN PRN Reason: Pain Stop: 02/24/22 19:57 Last Admin: 02/10/22 21:01 Dose: 3 mg Documented by: [id number] Ondansetron HCl (Ondansetron Inj 2 Mg/Ml 2 Ml Vial) 4 mg IV Q6H PRN PRN Reason: Nausea And Vomiting Stop: 03/12/22 19:57 Last Admin: 02/10/22 21:07 Dose: 4 mg Documented by: [id number] Discontinued Medications Sodium Chloride (Nss 1000ml) 1,000 mls @ 999 mls/hr IV .Q1H1M STA Stop: 02/10/22 18:08 Last Infusion: 02/10/22 18:25 Dose: 0 mls/hr Documented by: [id number] Admin: 02/10/22 17:23 Dose: 999 mls/hr Documented by: [id number] Piperacillin Sod/Tazobactam Sod (Zosyn) 4.5 gm in 120 mls @ 240 mls/hr IV NOW ONE Stop: 02/10/22 19:52 Last Admin: 02/10/22 19:34 Dose: 240 mls/hr Documented by: [id number] Ioversol (Optiray 320 100ml) 94 ml IV ONCE ONE Stop: 02/10/22 18:46 Last Admin: 02/10/22 18:46 Dose: 94 ml Documented by: [id number] Morphine Sulfate (Morphine Sulfate 4 Mg/Ml 1 Ml Carp\Vial) 4 mg IV NOW STA Stop: 02/10/22 17:16 Last Admin: 02/10/22 17:23 Dose: 4 mg Documented by: [id number] Ondansetron HCl (Ondansetron Inj 2 Mg/Ml 2 Ml Vial) 4 mg IV NOW STA Stop: 02/10/22 17:09 Last Admin: 02/10/22 17:23 Dose: 4 mg Documented by: [id number] Imaging Data Radiologist's Impression: Abdomen/Pelvis CT 02/10/22 17:40 CT SCAN OF THE ABDOMEN AND PELVIS WITH IV CONTRAST CLINICAL HISTORY: Upper abdominal pain. Back pain. Nausea and vomiting. COMPARISON STUDY: Abdominal CT dated 04/02/2021. TECHNIQUE: Following the IV administration of 94 cc of Optiray 320, CT scan of the abdomen and pelvis is performed from the lung bases to the proximal femora. Images are reviewed in the axial, sagittal, and coronal planes. IV contrast was administered without complication. A dose lowering technique was utilized adhering to the principles of ALARA. CT DOSE: 734.01 mGy.cm FINDINGS: Lung bases: The heart is normal in size and without pericardial effusion. The lung bases are clear noting dependent atelectasis. Liver: The contrast-enhanced liver is enlarged, measuring 22.3 cm in length. The liver demonstrates diffusely diminished attenuation consistent with hepatic steatosis. Fatty sparing and hyperemia is seen adjacent to gallbladder fossa. There is no intrahepatic biliary ductal dilatation. The hepatic veins and portal veins are patent. Gallbladder: The gallbladder is distended. The gallbladder wall is thickened and there is pericholecystic inflammation and fluid. Findings are consistent with acute cholecystitis. Spleen: Normal in size and attenuation. Pancreas: Unremarkable. Adrenal glands: Unremarkable. Kidneys: The contrast enhanced kidneys are normal in size and without hydronephrosis. The kidneys enhance symmetrically. Abdominal vasculature: The abdominal aorta is normal in course and caliber. A left iliac vein stent is patent. The right iliac vein is diminutive. Bowel: There is mild colonic diverticulosis without CT evidence of acute diverticulitis. No bowel obstruction is seen. The appendix is well-visualized and normal. Peritoneum: There is no intraperitoneal free air or abdominal ascites. There is a fat-containing umbilical hernia. Lymphadenopathy: None. Pelvic viscera: The bladder is normal as visualized. The uterus is surgically absent. No adnexal lesion is seen. Skeletal structures: The skeletal structures are osteopenic. No lytic or blastic lesions are seen. Sclerotic change is noted in the sacroiliac joints. IMPRESSION: 1. Findings are consistent with acute cholecystitis. Surgical consultation is advised. 2. Hepatomegaly and hepatic steatosis. 3. Colonic diverticulosis without CT evidence of acute diverticulitis. 4. Additional findings as above. ACT 112: Negative or not required by law. Electronically signed by: Srinivas Bernstein M.D. 02/10/2022 7:05 PM Discharge Plan Visit Data Chief Complaint: Vomiting Stated Complaint: VOMITING 24 HOURS ED Provider: Brennon Bell Discharge Problem: Nausea & vomiting, Acute upper abdominal pain, Acute cholecystitis Patient Disposition: Being Evaluated by Surgeon Forms Stand Alone Forms: [facility] Prescriptions Prescriptions: No Action propranolol 20 mg tablet 20 mg PO BID Qty: 180 RF: 1 ezetimibe [Zetia] 10 mg tablet 10 mg PO DAILY Qty: 30 RF: 2 hydroxyzine HCl 25 mg tablet 25 mg PO QID PRN (Reason: Situational anxiety) Qty: 60 RF: 1 multivitamin Tablet 1 tab PO DAILY RF: 0 aspirin 81 mg Tablet,Delayed Release (Dr/Ec) 81 mg PO QPM RF: 0 omega-3 fatty acids Capsule 1 cap PO DAILY RF: 0 docusate sodium [Stool Softener] 100 mg Capsule 100 mg PO DAILY RF: 0 Xarelto 20 mg tablet 20 mg PO QDD RF: 0 Referrals Referrals: Yoni Alvarez DO [Primary Care Provider] - Discharge Problem: Nausea & vomiting Qualifiers: Vomiting type: unspecified Qualified Code(s): R11.2 - Nausea with vomiting, unspecified
[2022-02-10 17:32] LABS: Basophils # (auto) 0.05 K/uL (0-0.2); Basophils % (auto) 0.3 %; Eosinophils # (auto) 0.13 K/uL (0-0.50); Eosinophils % (auto) 0.9 %; Hematocrit (blood only) 48.1 % (34.1-44.9); Hemoglobin 16.5 g/dl (12.0-16.0); Immature Granulocytes # (auto) 0.05 K/uL (0.00-0.02); Immature Granulocytes % (auto) 0.3 %; Lymphocytes # (auto) 2.38 K/uL (1.2-3.4); Mean Corpuscular Hemoglobin 28.7 pg (25.0-34.0); Mean Corpuscular Hgb Conc 34.3 g/dL (32.0-36.0); Mean Corpuscular Volume 83.8 fL (80.0-100.0); Mean Platelet Volume 11.3 fL (9.4-12.3); Monocytes # (auto) 0.73 K/uL (0.24-0.82); Monocytes % (auto) 4.9 %; Neutrophils # (auto) 11.55 K/uL (1.4-6.5); Neutrophils % (auto) 77.6 %; Platelet Count 226 K/uL (130-400); RDW Coefficient of Variation 13.5 % (11.5-14.5); RDW Standard Deviation 41.2 fL (36.4-46.3); Red Blood Count 5.74 M/uL (3.93-5.22); White Blood Count 14.89 K/ul (4.8-10.8)
[2022-02-10 18:01] LABS: Troponin I High Sensitivity 13.5 pg/ml (0-14)
[2022-02-10 18:10] LABS: Albumin Globulin Ratio 1.4 (0.9-2); Albumin Level 4.5 gm/dl (3.4-5.0); BUN Creatinine Ratio 15.8 (10-20); Bilirubin,Total 0.8 mg/dl (0.2-1.0); Calcium 9.5 mg/dl (8.5-10.1); Creatinine Clr Calc Pharmacy 66.6 ml/min; Est GFR (African American) 75.5 ml/min; Est GFR (Non-African American) 65.1 ml/min; Globulin 3.2 gm/dl (2.5-4.0); Potassium 3.7 mmol/L (3.5-5.1); Total Protein 7.7 gm/dl (6.0-8.3)
[2022-02-10] MEDS ORDERED: OPTIRAY 320 100ml IV ONE (18:45)
--- NOTE | 2022-02-10 19:07 | CT Scan Report ---
CT SCAN OF THE ABDOMEN AND PELVIS WITH IV CONTRAST CLINICAL HISTORY: Upper abdominal pain. Back pain. Nausea and vomiting. COMPARISON STUDY: Abdominal CT dated 04/02/2021. TECHNIQUE: Following the IV administration of 94 cc of Optiray 320, CT scan of the abdomen and pelvi s is performed from the lung bases to the proximal femora. Images are reviewed in the axial, sagittal , and coronal planes. IV contrast was administered without complication. A dose lowering technique wa s utilized adhering to the principles of ALARA. CT DOSE: 734.01 mGy.cm FINDINGS: Lung bases: The heart is normal in size and without pericardial effusion. The lung bases are clear no ting dependent atelectasis. Liver: The contrast-enhanced liver is enlarged, measuring 22.3 cm in length. The liver demonstrates d iffusely diminished attenuation consistent with hepatic steatosis. Fatty sparing and hyperemia is see n adjacent to gallbladder fossa. There is no intrahepatic biliary ductal dilatation. The hepatic vein s and portal veins are patent. Gallbladder: The gallbladder is distended. The gallbladder wall is thickened and there is pericholecy stic inflammation and fluid. Findings are consistent with acute cholecystitis. Spleen: Normal in size and attenuation. Pancreas: Unremarkable. Adrenal glands: Unremarkable. Kidneys: The contrast enhanced kidneys are normal in size and without hydronephrosis. The kidneys enh ance symmetrically. Abdominal vasculature: The abdominal aorta is normal in course and caliber. A left iliac vein stent i s patent. The right iliac vein is diminutive. Bowel: There is mild colonic diverticulosis without CT evidence of acute diverticulitis. No bowel obs truction is seen. The appendix is well-visualized and normal. Peritoneum: There is no intraperitoneal free air or abdominal ascites. There is a fat-containing umbi lical hernia. Lymphadenopathy: None. Pelvic viscera: The bladder is normal as visualized. The uterus is surgically absent. No adnexal lesi on is seen. Skeletal structures: The skeletal structures are osteopenic. No lytic or blastic lesions are seen. Sc lerotic change is noted in the sacroiliac joints. IMPRESSION: 1. Findings are consistent with acute cholecystitis. Surgical consultation is advised. 2. Hepatomegaly and hepatic steatosis. 3. Colonic diverticulosis without CT evidence of acute diverticulitis. 4. Additional findings as above. ACT 112: Negative or not required by law. Electronically signed by: Srinivas Bernstein M.D. 02/10/2022 7:05 PM
[2022-02-10] MEDS ORDERED: PIPERACILLIN/TAZOBACTAM 4.5 GM/120 ML BAG IV ONE (19:23)
[2022-02-10 19:36] LABS: Appearance Urine Clear (Clear); Bacteria Urine Automated Negative (Negative); Bilirubin Urine Negative (Negative); Blood Urine Trace (Negative); Color Urine Dark Yellow; Epithelial Cell Urine Auto >30 /lpf (0-5); Glucose Urine UA Negative (Negative); Ketones Urine 1+ (Negative); Leukocyte Esterase Urine Trace (Negative); Nitrite Urine Negative (Negative); Protein Urine Trace (Negative); Specific Gravity Urine > 1.045 (1.000-1.030); Urobilinogen Urine Negative (Negative); pH Urine 5.5 (4.5-7.5)
--- NOTE | 2022-02-10 19:58 | History & Physical Report ---
Date of Service February 10, 2022 Assessment & Plan (1) Acute cholecystitis: Plan: The patient's labs, imaging, clinical presentation she will be admitted to the hospital proceeding as follows: Analgesics will be provided Antiemetics be provided We will provide IV fluid for hydration Allow the patient clear liquids only We will follow serial labs. I do plan on repeating CBC tomorrow along with a comprehensive metabolic panel and lipase to ensure that she does not have a worsening elevation of LFTs or worsening elevation of her lipase. We will check an abdominal ultrasound to see if she has any gallstones that were not evident on CT scan We will tenably plan on performing a cholecystectomy on this patient on 02/12/2022. I have explained the risks, benefits, and expected postoperative course with the patient and she wishes to proceed. We will have to hold her Xarelto to decrease the risk of perioperative bleeding. We use SCDs for DVT prevention, no chemical means as the patient was already taking Xarelto in addition to her planned surgery Patient be a level 1 full code History of Present Illness Chief Complaint: Abdominal pain Primary Care Provider: Yoni Alvarez DO This is a 61-year-old female who presented to [facility] emergency department secondary to abdominal pain. Patient says that the pain began yesterday shortly after her evening meal. She notes that the pain was across the top of her abdomen most pronounced in the epigastric and right upper quadrant. She said that the pain did radiate somewhat to her back but not her shoulder. She had associated nausea and vomiting. Her pain abated somewhat after vomiting but simply returned. She reported a low-grade temperature of approximate 99.8. She does report similar symptoms 2 times in the past but this pain oftentimes would resolve on its own so she did not seek active intervention at that time. She notes that her most recent oral intake was after her evening meal yesterday. She has had prior abdominal surgeries in the form of a hysterectomy as well as tubal ligation. She notes that the pain was palliated with medicines administered in the emergency department and to a lesser degree vomiting. She did not report any other provocative factors other than eating. In the emergency department patient had labs and imaging which I independently reviewed. CBC revealed white blood cell count was 14.8. Hemoglobin and hematocrit were 16.5 and 48.1. Platelet count was within normal range. Chemistry profile showed sodium, potassium, BUN, and creatinine were all within the normal range. LFTs revealed her total bilirubin and AST were normal. There is a slight elevation of the alkaline phosphatase and ALT at 111 and 57 respectively. There is also slight elevation of her lipase at 144. Urinalysis did show 5-10 white blood cells per high-power field along with trace leukocyte Estrace. There were no nitrites or bacteria on this urine specimen. A COVID test was noted to be negative. Patient also underwent a CT scan of the abdomen pelvis. This showed that the patient had a distended gallbladder with a thickened wall as well as pericholecystic fluid consistent with acute cholecystitis. 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 She also notes that she takes Xarelto with her most recent dose being the evening of 02/09/2022. I question the patient on her activities of daily living and she notes she leads an active lifestyle when she is feeling well. She says she rides a bicycle several times per week and does not have any limiting factors such as chest pain or dyspnea on exertion that limits her exercise. At the time of my interview the patient was resting comfortably in bed she was in no distress Allergies Allergy/AdvReac Type Severity Reaction Status Date / Time No Known Allergies Allergy Unknown Verified 02/10/22 19:14 Home Medications Medication Instructions Recorded Confirmed Type multivitamin 1 tab PO DAILY 05/22/18 02/10/22 History aspirin 81 mg tablet,delayed 81 mg PO QPM 02/20/21 02/10/22 History release docusate sodium 100 mg capsule 100 mg PO DAILY 02/20/21 02/10/22 History (Stool Softener) omega-3 fatty acids 1 cap PO DAILY 02/20/21 02/10/22 History hydroxyzine HCl 25 mg tablet 25 mg PO QID PRN #60 tab 03/06/21 02/10/22 Rx propranolol 20 mg tablet 20 mg PO BID #180 tab 09/03/21 02/10/22 Rx ezetimibe 10 mg tablet (Zetia) 10 mg PO DAILY #30 tab 12/06/21 02/10/22 Rx rivaroxaban 20 mg tablet (Xarelto) 20 mg PO QDD 02/10/22 02/10/22 History Past Med/Surg History Medical History Acute leg pain Chronic back pain History of Lyme disease Psoriasis Surgical History H/O tubal ligation History of hysterectomy Hx of colonoscopy Hx of tonsillectomy S/P section Family History Father Myocardial infarction Cardiac disorder Mother Alcohol abuse COPD (chronic obstructive pulmonary disease) Liver cancer Gallbladder disease Grandmother (Maternal) Alcohol abuse Cardiac disorder COPD (chronic obstructive pulmonary disease) Liver cancer Myocardial infarction Anxiety Gallbladder disease Family/Other History of blood clots Sister Anxiety Gallbladder disease Denies family history of Ovarian cancer Prostate cancer Breast cancer Colorectal cancer Social History Smoking Status: Never smoker Second Hand Exposure: No; Do You Dip or Chew Tobacco: No; Hx Alcohol Use: No Hx Substance Use: No Preferred Language: Lao Communication Ability: Effective Visual Impairment: No Limitations Hearing Ability: Normal Dynamics Ax Solution Architect Required: No Beliefs That Will Affect Care: None marital status: Current Living Situation: Spouse current occupational status: employed 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 Other Information That Helps Us Care for You: No Feels Safe at Home: Yes Safety Concerns: Feels Safe At This Time Childhood Exposure to Second-Hand Smoke: Yes Dental Care, Regularly: Yes Physical Activity Frequency: Daily Seatbelt Use: always Sunscreen Use: Yes Assistive Devices: Glasses Review of Systems Constitutional: + fever; no chills Eyes: no eye pain Ear, Nose, Mouth, Throat: no ear pain Respiratory: no cough and no dyspnea Cardiovascular: no chest pain Gastrointestinal: + abdominal pain, + nausea and + vomiting Genitourinary: no dysuria Musculoskeletal: + back pain (Radiating from the abdomen) Integumentary: no rash Neurologic: no localized weakness Physical Exam Constitutional: WD/WN, vitals as above Eyes: + anicteric sclerae ENMT: Ears: no hearing impairment Sublingual jaundice is absent Neck: trachea midline Respiratory: normal respiratory effort; no respiratory distress and no labored breathing No wheezing Cardiovascular: Rate/Rhythm: regular rate and regular rhythm Vessels: dorsalis pedis pulses present and radial pulses present Gastrointestinal (Abdomen): Abdomen is soft, nonrigid, and nondistended. Bowel sounds are present. There is no rebound tenderness or guarding. Patient did have slight pain with palpation noted in the epigastric area. A greater degree of right upper quadrant pain was noted with a positive Soliman sign Musculoskeletal: No calf tenderness. No lower extremity edema Skin: no rashes and no jaundice Neurologic: moves all extremities Psychiatric: A+Ox3, euthymic affect Results & Data Results & Data ([facility]) Vital Signs (Past 12 Hours) Vital Signs Temp Pulse Pulse Resp BP BP Pulse Ox 02/10/22 19:31 97 02/10/22 17:51 69 18 176/100 H 94 02/10/22 16:35 36.2 C L 78 20 169/87 H 97 Supervising Physician Co-Signing Physician Notes I personally saw and evaluated the patient with Mayank Flores PA-C and agree with the assessment and plan. 61-year-old female with acute cholecystitis, on Xarelto for history of May Thurner syndrome CT images and results personally viewed by me, consistent with acute cholecystitis Will admit the patient to the surgery service and give clears We will order a right upper quadrant ultrasound to confirm the presence of cholelithiasis Start IV antibiotics We will tentatively plan on laparoscopic cholecystectomy, possible open, possible IOC on Monday 02/12 when she has been off her Xarelto for 48 hours PG Care Time/CCT Total # of Minutes Spent Total Time Spent with Patient: Total time spent is greater than 50% in coordination of care (as documented) at patient's floor/unit and/or counseling patient: Coding Level of Care Code 71506 Initial Inpt Care Lvl 3 Diagnoses Acute cholecystitis K81.0
[2022-02-10] MEDS: MoRPHine SULFATE 4 MG/ML 1 ML CARP\\VIAL IV PRN (21:01)
[2022-02-10] MEDS: ONDANSETRON INJ 2 MG/ML 2 ML VIAL IV PRN (21:07)
[2022-02-10] MEDS: LACTATED RINGER'S 1,000 ML IV SCH (21:08)
[2022-02-10] MEDS ORDERED: hydrOXYzine HCl 25 MG TAB PO PRN (22:16)
[2022-02-10] MEDS ORDERED: PROMETHAZINE HCL 6.25 MG in SODIUM CHLORIDE 0.9% 50 ML IV STA (22:50)
[2022-02-10] MEDS: PROPRANOLOL HCL 20 MG TAB PO SCH (23:13)
[2022-02-10] MEDS: PIPERACILLIN/TAZOBACTAM 3.375 GM in DEXTROSE 5% 100 ML IV SCH (23:35)
[2022-02-11] MEDS: MoRPHine SULFATE 4 MG/ML 1 ML CARP\\VIAL IV PRN (03:02)
[2022-02-11] MEDS: ONDANSETRON INJ 2 MG/ML 2 ML VIAL IV PRN (03:05)
[2022-02-11] MEDS: LACTATED RINGER'S 1,000 ML IV SCH ×4 (04:09→22:08)
[2022-02-11 06:12] LABS: Basophils # (auto) 0.04 K/uL (0-0.2); Basophils % (auto) 0.3 %; Eosinophils # (auto) 0.29 K/uL (0-0.50); Eosinophils % (auto) 2.3 %; Hematocrit (blood only) 44.3 % (34.1-44.9); Hemoglobin 14.8 g/dl (12.0-16.0); Immature Granulocytes # (auto) 0.04 K/uL (0.00-0.02); Immature Granulocytes % (auto) 0.3 %; Lymphocytes # (auto) 2.42 K/uL (1.2-3.4); Lymphocytes % (auto) 19.2 %; Mean Corpuscular Hemoglobin 29.2 pg (25.0-34.0); Mean Corpuscular Hgb Conc 33.4 g/dL (32.0-36.0); Mean Corpuscular Volume 87.5 fL (80.0-100.0); Mean Platelet Volume 10.4 fL (9.4-12.3); Monocytes # (auto) 0.79 K/uL (0.24-0.82); Monocytes % (auto) 6.3 %; Neutrophils # (auto) 9.01 K/uL (1.4-6.5); Neutrophils % (auto) 71.6 %; Platelet Count 188 K/uL (130-400); RDW Coefficient of Variation 13.7 % (11.5-14.5); RDW Standard Deviation 43.7 fL (36.4-46.3); Red Blood Count 5.06 M/uL (3.93-5.22); White Blood Count 12.59 K/ul (4.8-10.8)
[2022-02-11 06:36] LABS: Albumin Globulin Ratio 1.4 (0.9-2); Albumin Level 3.7 gm/dl (3.4-5.0); BUN Creatinine Ratio 13.5 (10-20); Bilirubin,Total 0.8 mg/dl (0.2-1.0); Calcium 8.3 mg/dl (8.5-10.1); Creatinine Clr Calc Pharmacy 75.7 ml/min; Est GFR (African American) 81.6 ml/min; Est GFR (Non-African American) 70.4 ml/min; Globulin 2.6 gm/dl (2.5-4.0); Total Protein 6.3 gm/dl (6.0-8.3)
--- NOTE | 2022-02-11 07:20 | Ultrasound Report ---
ABDOMINAL ULTRASOUND, RIGHT UPPER QUADRANT HISTORY: Right upper quadrant pain. cholecystitis. COMPARISON: Abdomen and pelvis CT 02/10/2022. FINDINGS: Pancreas: The pancreatic tail is obscured by overlying bowel gas. The remaining portions of the pancr eas are within normal limits. Liver: The liver is echogenic consistent with fatty change. 19 cm in length. Gallbladder: Distended containing multiple small gallstones and sludge. The gallbladder wall is at th e upper limits of normal measuring 3 mm. Trace pericholecystic fluid/gallbladder wall edema is noted. CBD: 4 mm. Right kidney: No hydronephrosis. IMPRESSION: 1. Distended gallbladder containing multiple small stones/sludge. There is trace pericholecystic flui d/gallbladder wall edema noted. Findings are concerning for acute cholecystitis. Nuclear medicine HID A scan can be used for further evaluation if clinically warranted. 2. Hepatic steatosis. ACT 112: Negative or not required by law. Electronically signed by: Wood Noe M.D. 02/11/2022 7:19 AM
[2022-02-11] MEDS: PIPERACILLIN/TAZOBACTAM 3.375 GM in DEXTROSE 5% 100 ML IV SCH ×2 (07:59→16:01)
[2022-02-11] MEDS: EZETIMIBE 10 MG TABLET PO SCH (08:01)
[2022-02-11] MEDS: PROPRANOLOL HCL 20 MG TAB PO SCH ×2 (08:01→21:12)
--- NOTE | 2022-02-11 08:37 | Surgery Progress Note ---
Date of Service February 11, 2022 Assessment & Plan (1) Acute cholecystitis: Plan: WBC down to 12 cont abx, hold Xarelto for lap silas tomorrow Admission and Anticipated Discharge Date Admission Date: February 10, 2022 Supervising Physician Co-Signing Physician Notes I personally saw and evaluated the patient with Abdi Everett PA-C and agree with the assessment and plan. 61-year-old female with acute cholecystitis, on Xarelto for history of May Thurner syndrome Continue clears, n.p.o. after midnight Continue IV antibiotics We will tentatively plan on laparoscopic cholecystectomy, possible open, possible IOC tomorrow when she has been off her Xarelto for 48 hours Subjective some pain, tolerating clears Physical Exam Gastrointestinal (Abdomen): Inspection/Auscultation: abdomen not distended Percussion/Palpation: + abdomen tender (RUQ) and abdomen soft Results & Data ([facility]) Vital Signs (Past 12 Hours) Vital Signs Temp Pulse Resp BP Pulse Ox 02/10/22 22:05 36.7 C 65 18 163/78 H 95 02/10/22 21:10 69 11 L 157/98 H 94 PG Care Time/CCT Total # of Minutes Spent Total Time Spent with Patient: Total time spent is greater than 50% in coordination of care (as documented) at patient's floor/unit and/or counseling patient: Coding Level of Care Code 29466 Subseq Hosp Care Lvl 1 Diagnoses Acute cholecystitis K81.0
--- NOTE | 2022-02-11 12:03 | Electrocardiogram Report ---
Test Reason : Blood Pressure : / mmHG Vent. Rate : 068 BPM Atrial Rate : 068 BPM P-R Int : 166 ms QRS Dur : 092 ms QT Int : 420 ms P-R-T Axes : 049 019 026 degrees QTc Int : 446 ms Normal sinus rhythm Incomplete right bundle branch block Borderline ECG When compared with ECG of 20-FEB-2021 17:34, No significant change was found Confirmed by Tod Pulido ([id number]) on 02/11/2022 12:03:10 PM Referred By: REFERRED SELF Confirmed By:Alberto Pulido
[2022-02-11] MEDS: ACETAMINOPHEN 1,000 MG/100 ML VIAL IV PRN (14:09)
[2022-02-12] MEDS: PIPERACILLIN/TAZOBACTAM 3.375 GM in DEXTROSE 5% 100 ML IV SCH ×3 (00:14→17:37)
[2022-02-12] MEDS: ACETAMINOPHEN 1,000 MG/100 ML VIAL IV PRN ×2 (04:14→19:17)
[2022-02-12] MEDS: LACTATED RINGER'S 1,000 ML IV SCH (06:13)
[2022-02-12] MEDS ORDERED: PROPOFOL IV EMULSION 10 MG/ML 20 ML VIAL IV ONE (06:35)
[2022-02-12] MEDS ORDERED: ROCURONIUM BROMIDE 10 MG/ML 5 ML VIAL IV ONE (06:35)
[2022-02-12] MEDS ORDERED: MIDAZOLAM HCL 1 MG/ML 2ML VIAL ONE ×2 (06:36→10:15)
[2022-02-12] MEDS ORDERED: fentaNYL citrate 100 MCG/2 ML VIAL ONE ×3 (06:36→12:01)
[2022-02-12] MEDS ORDERED: KETAMINE 50 MG/5 ML SYRINGE ONE (07:41)
[2022-02-12] MEDS ORDERED: DEXAMETHASONE SOD INJ 4 MG/ML VIAL ONE (07:46)
[2022-02-12] MEDS ORDERED: ONDANSETRON INJ 2 MG/ML 2 ML VIAL ONE (07:46)
--- NOTE | 2022-02-12 07:50 | Surgery Progress Note ---
Date of Service February 12, 2022 Assessment & Plan (1) Acute cholecystitis: Plan: Patient improving on antibiotics She has been off her Xarelto for 2 full days We will plan on laparoscopic cholecystectomy, possible open, possible intraoperative cholangiogram today Consent was obtained, risks discussed including bleeding, infection, bile leak, ductal injury Admission and Anticipated Discharge Date Admission Date: February 10, 2022 Subjective Patient seen and examined. Feeling a little better. Afebrile. No nausea or vomiting. Review of Systems Constitutional: no fever and no chills Physical Exam Constitutional: WD/WN, vitals as above Gastrointestinal (Abdomen): Inspection/Auscultation: abdomen normal to inspection; abdomen not distended Percussion/Palpation: + abdomen tender (Right upper quadrant) and abdomen soft; no guarding, abdomen not rigid and no hernia Results & Data ([facility]) Vital Signs (Past 12 Hours) Vital Signs Temp Pulse Resp BP Pulse Ox O2 Del Method 02/12/22 07:14 36.4 C L 64 17 130/76 94 Room Air 02/11/22 22:15 36.4 C L 63 16 144/83 H 96 Room Air 02/11/22 21:10 73 143/92 H PG Care Time/CCT Total # of Minutes Spent Total Time Spent with Patient: Total time spent is greater than 50% in coordination of care (as documented) at patient's floor/unit and/or counseling patient: Coding Level of Care Code 56387 Subseq Hosp Care Lvl 1 Diagnoses Acute cholecystitis K81.0
--- NOTE | 2022-02-12 11:18 | Anesthesiology Consultation ---
Date of Service February 12, 2022 Assessment & Plan ASA ASA3 Proposed Anesthesia Anesthesia Type: General Risk / Benefits Reviewed With: PT / POA / Parent / Guardian, Accepts Plan and Informed Consent Obtained History Surgery Operation Date: 02/12/22 11:30 Proposed Procedures p Laparoscopic Cholecystectomy, Possible Open, Possible Cholangiogram - Misha Jaffe, Height/Weight Height: 5 ft 6 in Weight: 89.4 kg Allergies Allergy/AdvReac Type Severity Reaction Status Date / Time No Known Allergies Allergy Unknown Verified 02/12/22 11:06 Medications Home Medications Medication Instructions Recorded Confirmed Last Taken multivitamin 1 tab PO DAILY 05/22/18 02/10/22 02/09/22 aspirin 81 mg tablet,delayed 81 mg PO QPM 02/20/21 02/10/22 02/09/22 release docusate sodium 100 mg capsule 100 mg PO DAILY 02/20/21 02/10/22 02/09/22 (Stool Softener) omega-3 fatty acids 1 cap PO DAILY 02/20/21 02/10/22 02/09/22 hydroxyzine HCl 25 mg tablet 25 mg PO QID PRN Situational 03/06/21 02/10/22 Unknown anxiety #60 tabs propranolol 20 mg tablet 20 mg PO BID #180 tabs 09/03/21 02/10/22 02/09/22 ezetimibe 10 mg tablet (Zetia) 10 mg PO DAILY #30 tabs 12/06/21 02/10/22 02/09/22 rivaroxaban 20 mg tablet (Xarelto) 20 mg PO QDD 02/10/22 02/10/22 02/09/22 Active Medications Generic Name Dose Route Start Last Admin Trade Name Su PRN Reason Stop Dose Admin Ezetimibe 10 mg 02/11/22 09:00 02/11/22 08:01 Ezetimibe 10 Mg Tablet PO 03/13/22 08:59 10 mg DAILY DENA Administration Lactated Ringer's 1,000 mls @ 125 mls/hr 02/10/22 20:00 02/12/22 08:22 Lr IV 03/12/22 19:59 125 mls/hr .Q8H DENA Infusion Acetaminophen 1,000 mg in 100 mls @ 400 mls/hr 02/10/22 19:58 02/12/22 04:30 Ofirmev IV 02/13/22 19:57 Infused Q8H PRN Infusion Mild Pain (1,2,3) Piperacillin Sod/Tazobactam 115 mls @ 28.75 mls/hr 02/11/22 00:00 02/12/22 08:19 Sod 3.375 gm/ Dextrose IV 02/21/22 00:00 28.8 mls/hr Q8H DENA Administration Protocol Morphine Sulfate 3 mg 02/10/22 19:58 02/11/22 03:02 Morphine Sulfate 4 Mg/Ml 1 Ml Carp\Vial IV 02/24/22 19:57 3 mg Q3H PRN Administration mod-severe pain(4,5,6,7,8,9,10 Ondansetron HCl 4 mg 02/10/22 19:58 02/11/22 03:05 Ondansetron Inj 2 Mg/Ml 2 Ml Vial IV 03/12/22 19:57 4 mg Q6H PRN Administration Nausea And Vomiting Propranolol HCl 20 mg 02/10/22 22:16 02/11/22 21:12 Propranolol Hcl 20 Mg Tab PO 03/12/22 22:15 20 mg BID DENA Administration NPO Date Last Intake of Fluids: 02/11/22 Time Last Intake of Fluids: 20:00 Date Last Intake of Solids: 02/09/22 Time Last Intake of Solids: 16:00 Past Medical History Medical History Acute leg pain Chronic back pain History of Lyme disease Post-operative nausea and vomiting Psoriasis Exercise / Class Metabolic Activity II 4-5 Yardwork/Stairs/Walk up hill Past Family History Family History Father Myocardial infarction Cardiac disorder Mother Alcohol abuse COPD (chronic obstructive pulmonary disease) Liver cancer Gallbladder disease Grandmother (Maternal) Alcohol abuse Cardiac disorder COPD (chronic obstructive pulmonary disease) Liver cancer Myocardial infarction Anxiety Gallbladder disease Family/Other History of blood clots Sister Anxiety Gallbladder disease Denies family history of Ovarian cancer Prostate cancer Breast cancer Colorectal cancer Past Surgical History Surgical History H/O tubal ligation History of hysterectomy Hx of colonoscopy Hx of tonsillectomy S/P section Past Anesthesia History No Hx of Anesthesia Complications and No Family Hx of Anesthesia Complications History of PONV No Hx of PONV and No Hx of Motion Sickness Social History Smoking Status: Never smoker Do You Dip or Chew Tobacco: No Hx Alcohol Use: No Hx Substance Use: No substance use type: does not use Review of Systems denies fever/cough/ colds/ chest pain/ SOB/ DONALD denies DONALD Physical Exam Vital Signs Last Vital Signs Temp 37 C 02/12/22 11:07 Pulse 69 02/12/22 11:07 Resp 20 02/12/22 11:07 BP 165/81 H 02/12/22 11:07 Pulse Ox 95 02/12/22 11:07 O2 Del Method 02/12/22 11:07 ENMT Mouth: + dentition abnormality (multipe missing); no TMJ abnormality Thyromental Distance: > or= 3.5 Finger Breadths Mallampati Class: II Neck neck extension not limited Respiratory normal respiratory effort; no respiratory distress Auscultation: lungs clear to auscultation bilaterally Cardiovascular Rate/Rhythm: regular rate and regular rhythm Neurologic moves all extremities Psychiatric Orientation: alert and oriented x 3 Testing Laboratory Results 02/11/22 05:58 02/11/22 05:58 Urine Color Dark Yellow 02/10/22 19:01 Urine Appearance Clear (Clear) 02/10/22 19:01 Urine pH 5.5 (4.5-7.5) 02/10/22 19:01 Ur Specific [place] > 1.045 (1.000-1.030) H 02/10/22 19:01 Urine Protein Trace (Negative) H 02/10/22 19:01 Urine Glucose (UA) Negative (Negative) 02/10/22 19:01 Urine Ketones 1+ (Negative) H 02/10/22 19:01 Urine Nitrite Negative (Negative) 02/10/22 19:01 Ur Leukocyte Esterase Trace (Negative) H 02/10/22 19:01 Urine WBC (Auto) 5-10 /hpf (0-5) H 02/10/22 19:01 Urine RBC (Auto) 10-30 /hpf (0-4) H 02/10/22 19:01 U Hyaline Cast (Auto) 1-5 /lpf (0-5) 02/10/22 19:01 U Epithel Cells (Auto) >30 /lpf (0-5) H 02/10/22 19:01 Urine Bacteria (Auto) Negative (Negative) 02/10/22 19:01
[2022-02-12] MEDS ORDERED: ONDANSETRON INJ 2 MG/ML 2 ML VIAL IV PRN (11:19)
[2022-02-12] MEDS ORDERED: ePHEDrine sulfate 50 MG/ML AMP IV PRN (11:19)
[2022-02-12] MEDS ORDERED: ATROPINE SULFATE 0.1 MG/ML 10ML SYR IV PRN (11:19)
[2022-02-12] MEDS ORDERED: fentaNYL citrate 100 MCG/2 ML VIAL IV PRN (11:19)
[2022-02-12] MEDS ORDERED: HYDROmorphone INJ 2 MG/ML SYR/VIAL IV PRN (11:19)
[2022-02-12] MEDS ORDERED: BUPIVACAINE/EPINEPHRINE 0.25% 1:200,000 30 ML VIAL ONE (11:32)
[2022-02-12] MEDS ORDERED: KETOROLAC 30 MG/ML VIAL ONE (12:04)
[2022-02-12] MEDS ORDERED: GLYCOPYRROLATE 0.2 MG/ML VIAL ONE (12:13)
[2022-02-12] MEDS ORDERED: LABETALOL HCL IV 5 MG/ML 20ML IV ONE (12:13)
[2022-02-12] MEDS ORDERED: NEOSTIGMINE METHYLSULFATE 1 MG/ML 10ML VIAL ONE (12:13)
--- NOTE | 2022-02-12 13:10 | Post Operative Brief Note ---
PG Immediate Post Op with CF Date of Surgery February 12, 2022 Pre & Post Diagnosis Operation Date: 02/12/22 11:30 Pre-Op Diagnosis: Acute cholecystitis Post-Op Diagnosis: Acute cholecystitis I identified the patient and participated in the time-out.: Yes Procedure Operation Date: 02/12/22 11:30 Actual Procedures p Laparoscopic Cholecystectomy(Not Applicable) - Misha Jaffe DO Surgeon Misha Jaffe DO Resort Manager Uma Varghese PA-C Estimated Blood Loss 25 Findings See Below Acutely inflamed, edematous gallbladder, thickened gallbladder wall Specimens Specimen Description: A) Gallbladder and contents Anesthesia Type General Complications none Disposition Disposition: Recovery Room
--- NOTE | 2022-02-12 13:16 | Operative Report ---
PG Post Operative Report Pre & Post Diagnosis Operation Date: 02/12/22 11:30 Pre-Op Diagnosis: Acute cholecystitis Post-Op Diagnosis: Acute cholecystitis I identified the patient and participated in the time-out.: Yes Procedure Operation Date: 02/12/22 11:30 Actual Procedures p Laparoscopic Cholecystectomy(Not Applicable) - Misha Jaffe DO Surgeon Misha Jaffe DO Writing Tutor Uma Varghese PA-C Estimated Blood Loss 25 Findings See Below Fluids see anesthesia record Specimens Gallbladder to pathology Drains None Anesthesia Type General Complications none Disposition Disposition: Recovery Room Indications 61-year-old female with acute cholecystitis Description of Procedure The patient was brought to the operating room and placed in the supine position with both arms extended. At this time she underwent general endotracheal anesthesia without any problems. She was given appropriate pre-operative antibiotics. Her abdomen prepped and draped in the usual sterile fashion. A timeout was called, the procedure was verified as Laparoscopic cholecystectomy, possible open, possible intra-operative cholangiogram. Surgical, nursing and anesthesia teams agreed and the procedure was begun. After injection of 0.25% Marcaine with epinephrine, a supraumbilical vertical incision was made and carried down to the fascia using S-retractors. The abdominal wall was then elevated with towel clamps and abdomen entered using the Veress needle confirming position using the saline drop test. Pneumoperitoneum was established. 5mm trocar was placed. Laparoscope was introduced. No injury from entry into the abdomen was visualized after inspection of the abdomen. Three further ports were placed under direct visualization. One 11mm in the subxiphoid region and two 5mm in the RUQ. At this time the abdomen was inspected and the gallbladder identified. The gallbladder itself was acutely inflamed with a thickened wall as well as pericholecystic fluid. The fluid was suctioned up. Omental adhesions were lysed from the gallbladder itself using sharp and blunt dissection the gallbladder fundus was grasped and retracted cephalad. The gallbladder infundibulum was then grasped and retracted laterally. The cystic duct and cystic artery were then identified and skeleto nized. The critical view of safety was obtained. They were both then clipped twice proximally and once distally and then divided using scissors. The gallbladder was then taken off of the liver bed using electrocautery and placed in an endocatch bag and removed from the subxiphoid port. The liver bed was then inspected and no bile leak or bleeding was evident. The subxiphoid port was then closed using 0-Vicryl using the suture passer. The trocars were then removed under direct visualization and no bleeding was present. Abdomen was desufflated. The skin was then closed using 4-0 Monocryl in a subcuticular fashion. Surgical glue was applied. Needle and sponge counts were correct x 2. At this time the patient was awoken from anesthesia and extubated having remained stable throughout the entire case. The patient was then transported to PACU in stable condition. Physician assistant import manager was present scrubbed for the entire case. She was essential in positioning, prepping and draping the patient, driving the laparoscope, retraction exposure, closure of the incisions and placement of the dressings. I attest to the content of the Intraoperative Record and any orders documented therein. Any exceptions are noted below.
[2022-02-12] MEDS ORDERED: MoRPHine SULFATE 2 MG/ML CARP IV PRN (14:17)
[2022-02-12] MEDS ORDERED: oxyCODONE HCL IR 5 MG TAB (IMMEDIATE RELEASE) PO PRN (14:17)
[2022-02-12] MEDS ORDERED: MoRPHine SULFATE 4 MG/ML 1 ML CARP\\VIAL IV PRN (14:17)
[2022-02-12] MEDS ORDERED: LACTATED RINGER'S 1,000 ML IV SCH (14:17)
--- NOTE | 2022-02-12 14:26 | Anesthesiology Progress Note ---
Date of Service February 12, 2022 Anesthesia Post Procedure Vital Signs Vital Signs: Temp Pulse Pulse Resp BP BP Pulse Ox 02/12/22 14:10 37 C 65 16 142/81 H 95 02/12/22 13:55 36.5 C 68 14 149/78 H 94 02/12/22 13:45 69 18 150/75 H 96 02/12/22 13:35 70 18 162/79 H 96 02/12/22 13:27 36.0 C L 73 14 158/81 H 94 02/12/22 11:07 37 C 69 20 165/81 H 95 02/12/22 07:14 36.4 C L 64 17 130/76 94 02/11/22 22:15 36.4 C L 63 16 144/83 H 96 02/11/22 21:10 73 143/92 H 02/11/22 15:21 36.7 C 71 16 133/76 93 O2 Del Method O2 Flow Rate 02/12/22 14:10 Nasal Cannula 1 02/12/22 13:55 Nasal Cannula 2 02/12/22 13:45 Oxymask 3 02/12/22 13:35 Oxymask 5 02/12/22 13:27 Oxymask 5 02/12/22 11:07 Room Air 02/12/22 07:14 Room Air 02/11/22 22:15 Room Air 02/11/22 21:10 02/11/22 15:21 Room Air Pain Intensity Abdomen: Pain Intensity: 2 Transfer of Care Handoff Completed per policy Notes Mental Status: alert / awake / arousable and participated in evaluation Patient Amnestic to Procedure: Yes Nausea / Vomiting: adequately controlled Pain: adequately controlled Airway Patency, RR, SpO2: stable & adequate BP & HR: stable & adequate Hydration State: stable & adequate Anesthetic Complications: no major complications apparent and Pt Satisfied with anesthetic care
[2022-02-12] MEDS: EZETIMIBE 10 MG TABLET PO SCH (15:23)
[2022-02-12] MEDS: PROPRANOLOL HCL 20 MG TAB PO SCH ×2 (15:23→19:17)
[2022-02-12] MEDS: ONDANSETRON INJ 2 MG/ML 2 ML VIAL IV PRN (15:26)
[2022-02-12] MEDS: oxyCODONE HCL IR 5 MG TAB (IMMEDIATE RELEASE) PO PRN (19:17)
[2022-02-13] MEDS: oxyCODONE HCL IR 5 MG TAB (IMMEDIATE RELEASE) PO PRN (00:44)
[2022-02-13] MEDS: PIPERACILLIN/TAZOBACTAM 3.375 GM in DEXTROSE 5% 100 ML IV SCH ×2 (00:44→08:42)
[2022-02-13 05:27] LABS: Basophils # (auto) 0.02 K/uL (0-0.2); Basophils % (auto) 0.2 %; Eosinophils % (auto) 1.1 %; Hematocrit (blood only) 37.6 % (34.1-44.9); Hemoglobin 12.6 g/dl (12.0-16.0); Immature Granulocytes # (auto) 0.02 K/uL (0.00-0.02); Immature Granulocytes % (auto) 0.2 %; Lymphocytes # (auto) 1.72 K/uL (1.2-3.4); Lymphocytes % (auto) 18.2 %; Mean Corpuscular Hemoglobin 29.3 pg (25.0-34.0); Mean Corpuscular Hgb Conc 33.5 g/dL (32.0-36.0); Mean Corpuscular Volume 87.4 fL (80.0-100.0); Mean Platelet Volume 10.9 fL (9.4-12.3); Monocytes # (auto) 0.59 K/uL (0.24-0.82); Monocytes % (auto) 6.2 %; Neutrophils # (auto) 7.02 K/uL (1.4-6.5); Neutrophils % (auto) 74.1 %; Platelet Count 160 K/uL (130-400); RDW Coefficient of Variation 13.4 % (11.5-14.5); RDW Standard Deviation 42.7 fL (36.4-46.3); White Blood Count 9.47 K/ul (4.8-10.8)
[2022-02-13 05:59] LABS: Albumin Level 3.3 gm/dl (3.4-5.0); BUN Creatinine Ratio 10.4 (10-20); Bilirubin Direct 0.1 mg/dl (0-0.2); Bilirubin,Total 0.5 mg/dl (0.2-1.0); Calcium 8.1 mg/dl (8.5-10.1); Creatinine Clr Calc Pharmacy 87.5 ml/min; Est GFR (African American) 97.3 ml/min; Est GFR (Non-African American) 83.9 ml/min; Potassium 3.5 mmol/L (3.5-5.1)
[2022-02-13] MEDS ORDERED: ACETAMINOPHEN 325 MG TAB PO PRN (08:16)
--- NOTE | 2022-02-13 08:20 | Surgery Progress Note ---
Date of Service February 13, 2022 Assessment & Plan (1) Acute cholecystitis: Plan: POD#1 laparoscopic cholecystectomy WBC 9, VSS and patient is afebrile Will advance to regular diet Pain manageable with prn medication Okay to remove dressings tomorrow and shower If pt's pain controlled and tolerates a diet she may dispo to home today F/u in clinic with Dr. Jaffe within 2 weeks Admission and Anticipated Discharge Date Admission Date: February 10, 2022 Supervising Physician Co-Signing Physician Notes I personally saw and evaluated the patient with Uma Varghese PA-C and agree with the assessment and plan. 61-year-old female postop day 1 laparoscopic cholecystectomy for acute cholecystitis She is doing well postop and tolerating clear liquids, advance diet as tolerated Continue IV antibiotics today, no need for p.o. antibiotics upon discharge Encourage ambulation/spirometry Pain control as needed If she tolerates her diet she can be discharged later today with follow-up in 2 weeks Subjective Patient is feeling improved. Does have some expected samuel incisional discomfort and slight bloating. She has been tolerating clear liquids. Denies n/v. Physical Exam Physical Exam: awake/alert Respiratory: normal respiratory effort Gastrointestinal (Abdomen): Inspection/Auscultation: + abdominal surgical incision (surgical dressings in place, c/d/i) Percussion/Palpation: + abdomen tender (expected samuel incisional discomfort to palpation) and abdomen soft Results & Data ([facility]) Vital Signs (Past 12 Hours) Vital Signs Temp Pulse Resp BP BP Pulse Ox O2 Del Method 02/13/22 07:28 36.4 C L 59 L 16 124/74 97 Room Air 02/13/22 03:00 36.4 C 60 16 100/62 94 Room Air 02/12/22 23:30 36.4 C 65 16 99/60 L 98 Room Air PG Care Time/CCT Total # of Minutes Spent Total Time Spent with Patient: Total time spent is greater than 50% in coordination of care (as documented) at patient's floor/unit and/or counseling patient: Coding Level of Care Code None Diagnoses Acute cholecystitis K81.0
[2022-02-13] MEDS: EZETIMIBE 10 MG TABLET PO SCH (08:41)
[2022-02-13] MEDS: PROPRANOLOL HCL 20 MG TAB PO SCH (08:43)
--- NOTE | 2022-02-18 07:50 | Discharge Summary ---
Date of Service February 13, 2022 Admission HPI Per Admitting Provider This is a 61-year-old female who presented to [facility] emergency department secondary to abdominal pain. Patient says that the pain began yesterday shortly after her evening meal. She notes that the pain was across the top of her abdomen most pronounced in the epigastric and right upper quadrant. She said that the pain did radiate somewhat to her back but not her shoulder. She had associated nausea and vomiting. Her pain abated somewhat after vomiting but simply returned. She reported a low-grade temperature of approximate 99.8. She does report similar symptoms 2 times in the past but this pain oftentimes would resolve on its own so she did not seek active intervention at that time. She notes that her most recent oral intake was after her evening meal yesterday. She has had prior abdominal surgeries in the form of a hysterectomy as well as tubal ligation. She notes that the pain was palliated with medicines administered in the emergency department and to a lesser degree vomiting. She did not report any other provocative factors other than eating. In the emergency department patient had labs and imaging which I independently reviewed. CBC revealed white blood cell count was 14.8. Hemoglobin and hematocrit were 16.5 and 48.1. Platelet count was within normal range. Chemistry profile showed sodium, potassium, BUN, and creatinine were all within the normal range. LFTs revealed her total bilirubin and AST were normal. There is a slight elevation of the alkaline phosphatase and ALT at 111 and 57 respectively. There is also slight elevation of her lipase at 144. Urinalysis did show 5-10 white blood cells per high-power field along with trace leukocyte Estrace. There were no nitrites or bacteria on this urine specimen. A COVID test was noted to be negative. Patient also underwent a CT scan of the abdomen pelvis. This showed that the patient had a distended gallbladder with a thickened wall as well as pericholecystic fluid consistent with acute cholec ystitis. 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 She also notes that she takes Xarelto with her most recent dose being the evening of 02/09/2022. I question the patient on her activities of daily living and she notes she leads an active lifestyle when she is feeling well. She says she rides a bicycle several times per week and does not have any limiting factors such as chest pain or dyspnea on exertion that limits her exercise. At the time of my interview the patient was resting comfortably in bed she was in no distress Principal Diagnosis acute cholecystitis Discharge Exam awake/alert Respiratory normal respiratory effort Gastrointestinal (Abdomen) Inspection/Auscultation: + abdominal surgical incision (surgical dressings in place, c/d/i) Percussion/Palpation: + abdomen tender (expected samuel incisional discomfort to palpation) and abdomen soft Discharge Data Allergies Allergy/AdvReac Type Severity Reaction Status Date / Time No Known Allergies Allergy Unknown Verified 02/17/22 13:08 Consultations 02/10/22 19:24 ED Decision to Admit Stat Procedures Performed Operation Date: 02/12/22 11:30 Actual Procedures p Laparoscopic Cholecystectomy, Possible Open, Possible Cholangiogram(Not Applicable) - Misha Jaffe DO Ordered Studies 02/10/22 17:40 CT abd pelvis IV con only Stat 02/10/22 20:04 US gallbladder Urgent Hospital Course (1) Acute cholecystitis: This is a 61yF who presented to the [facility] ED on 02/10/22 with abdominal pain. Workup in the ED revealed a WBC of 14.[address] a/p in addition to a RUQ US that showed concern for acute cholecystitis. The patient was tender to palpation in the RUQ/epigastric regions. The patient was admitted under the general surgery service. Discussions in place for patient to undergo surgical intervention for removal of her gallbladder, however as patient on Xarelto it was preferred this be held for at least 48 hours. She was given a clear liquid diet and remained on IV abx while xarelto was held. Made NPO at midnight prior to procedure. On 02/12 the patient was ultimately taken to the OR for a laparoscopic cholecystectomy. The patient tolerated the procedure well, see op note for full details. Post op the patient's diet was advanced as tolerated and pain controlled on prn medication. On POD#1 the patient was doing well and was deemed stable for discharge to home with instructions to follow up in clinic within 2 weeks. Plan to resume xarelto on 02/14/22. Total Time Total Time Spent Total Time Spent (In Minutes): 15 Discharge Plan Discharge Items Patient Disposition: Home - Self-Care Reason For Visit: [place] Discharge Diagnosis: laparoscopic cholecystectomy Activity: Per Instructions section Lifting: No more than 10 pounds Bathing Comment: may shower over dressing; no soaking in tubs/pools Exercise/Sports: Wait until after follow-up appointment Driving/Machine Use: no driving while taking any narcotics for pain Non-emergency contact: Surgeon Call non-emergency contact if: you have any medication questions, your symptoms worsen, your pain is not controlled, you have a fever, your temperature is above 101.5, your wound has increased redness, your wound has increased drainage and your wound pain has increased Follow-up/Referrals: Yoni Alvarez DO [Primary Care Provider] - Misha Jaffe DO [Physician] - 02/27/22 9:45 am (Please call to schedule follow up in clinic within 2 weeks) Diet: Regular Addtl Attending Provider Instructions: You may resume your Xarelto on 02/14/22 You may purchase Tylenol over the counter if needed for additional pain control. Take per manufacturers instructions. You may remove your outer surgical dressings on 02/14/22 and shower.You will have small white bandages on underneath called steri strips. Leave these in place and they will fall off on their own within 7-10 days. Pending Studies at Discharge: Yes Studies:: surgical pathology Stand-Alone Forms: My [facility], Opioid Pain Management, Work/School Release, Smoking Cessation Medications and DC Order Prescriptions: New oxycodone 5 mg tablet 5 - 10 mg PO .[id number] PRN (Reason: pain, for initial therapy, max 6 tabs per day) Qty: 15 0RF Continued propranolol 20 mg tablet 20 mg PO BID Qty: 180 1RF ezetimibe [Zetia] 10 mg tablet 10 mg PO DAILY Qty: 30 2RF hydroxyzine HCl 25 mg tablet 25 mg PO QID PRN (Reason: Situational anxiety) Qty: 60 1RF multivitamin Tablet 1 tab PO DAILY aspirin 81 mg Tablet,Delayed Release (Dr/Ec) 81 mg PO QPM omega-3 fatty acids Capsule 1 cap PO DAILY Discontinued Xarelto 20 mg tablet 20 mg PO QDD Rx Instructions: must administer with evening meal No Action docusate sodium [Stool Softener] 100 mg capsule 100 mg PO BID Discharge Orders: Discharge Order (Routine); Ordered 02/13/22 Ordered By: Uma De La Paz/Other Patient Handouts: Cholecystectomy Dc Admission Data Admit Date/Time: 02/10/22 20:04 Attending Provider: Misha Jaffe Admit Provider: Misha Jaffe Primary Care Provider: Yoni Alvarez Other Providers: Misha Jaffe Other Interventions: Discharge Summary Assessment (RN) Last Done: 02/13/22 13:16 Coding Level of Care Code D/C DAY MANAGEMENT <30 MINS Diagnoses Acute cholecystitis K81.0
== END 2022-02-13 13:57 | disposition home or self-care (01) | DRG 418 ==
LOC: ED 16:14 → 3W 20:04 → INTOOBSV 20:04 → 3W 21:10

== ENCOUNTER 2022-04-07 03:50 | Inpatient (IN) ==
[2022-04-07] MEDS ORDERED: SODIUM CHLORIDE 0.9% 1000ML 1,000 ML IV STA (04:11)
[2022-04-07] MEDS ORDERED: ONDANSETRON INJ 2 MG/ML 2 ML VIAL IV STA ×2 (04:11→05:51)
--- NOTE | 2022-04-07 04:21 | Emergency Department Note ---
History of Present Illness General Chief complaint: Back Injury/Pain Stated complaint: BACK PAIN,VOMITING,DIARRHEA,URINARY Time Seen by Provider: 04/07/22 04:06 History of Present Illness Maximum Pain Intensity: 7 This 61-year-old presents to the ER complaining of nausea vomiting diarrhea dark urine abdominal pain upper back pain and pain with deep inspiration who had surgery recently Location: Generalized Quality: Nauseous Severity: Moderate Duration: Past day Timing: Started yesterday Context: Patient was concerned and came in Modifying factors: better with rest; worse with activity Patient has a history of extensive DVTs and has not been able to keep down her Xarelto. Patient denies fevers, neck stiffness, headache. Home Medications Medication Instructions Recorded Confirmed Type multivitamin 1 tab PO DAILY 05/22/18 04/07/22 History aspirin 81 mg tablet,delayed 81 mg PO QPM 02/20/21 04/07/22 History release hydroxyzine HCl 25 mg tablet 25 mg PO QID PRN Situational 03/06/21 04/07/22 Rx anxiety #60 tabs docusate sodium 100 mg capsule 100 mg PO BID 02/17/22 04/07/22 History (Stool Softener) ezetimibe 10 mg tablet (Zetia) 10 mg PO DAILY #90 tabs 02/24/22 04/07/22 Rx propranolol 20 mg tablet 20 mg PO BID #180 tabs 02/24/22 04/07/22 Rx omega-3 fatty acids-fish oil 684 1 cap PO DAILY 04/07/22 04/07/22 History mg-1,200 mg capsule,delayed release rivaroxaban 20 mg tablet (Xarelto) 20 mg PO QPM 04/07/22 04/07/22 History Allergies Allergy/AdvReac Type Severity Reaction Status Date / Time No Known Allergies Allergy Unknown Verified 04/07/22 08:23 Past Med/Surg History Medical History Acute leg pain Acute upper abdominal pain Chronic back pain History of Lyme disease Nausea & vomiting Post-operative nausea and vomiting Psoriasis Surgical History H/O tubal ligation History of hysterectomy Hx laparoscopic cholecystectomy (02/13/22) Laparoscopic Cholecystectomy(Not Applicable) - Misha Jaffe, DO Hx of colonoscopy Hx of tonsillectomy S/P section Family History Father Myocardial infarction Cardiac disorder Mother Alcohol abuse COPD (chronic obstructive pulmonary disease) Liver cancer Gallbladder disease Grandmother (Maternal) Alcohol abuse Cardiac disorder COPD (chronic obstructive pulmonary disease) Liver cancer Myocardial infarction Anxiety Gallbladder disease Family/Other History of blood clots Sister Anxiety Gallbladder disease Denies family history of Ovarian cancer Prostate cancer Breast cancer Colorectal cancer Social History Smoking Status: Never smoker Second Hand Exposure: No; Hx Alcohol Use: No Hx Substance Use: No Preferred Language: Welsh Communication Ability: Effective Visual Impairment: No Limitations Hearing Ability: Normal Health Care Technician Required: No Beliefs That Will Affect Care: None marital status: Current Living Situation: Spouse current occupational status: employed 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 Feels Safe at Home: Yes Childhood Exposure to Second-Hand Smoke: Yes Dental Care, Regularly: Yes Physical Activity Frequency: Daily Seatbelt Use: always Sunscreen Use: Yes Assistive Devices: Glasses Review of Systems A total of 10 systems reviewed and were otherwise negative Physical Exam Vital Signs Vital Signs - 24 hr 04/07/22 03:59 04/07/22 04:28 04/07/22 04:40 Temperature 36.8 C Temperature Source Temporal Artery Scan Pulse Rate 80 Pulse Rate [Apical] 74 Pulse Rhythm Regular Pulse Rhythm [Apical] Pulse Strength Normal Pulse Strength [Apical] Respiratory Rate 18 16 Respiratory Effort / Characteristics Non-Labored Spontaneous Respiratory Depth Normal Normal Respiratory Pattern Regular Blood Pressure 158/92 H Blood Pressure [Right Arm] 146/100 H Blood Pressure Mean 114 Blood Pressure Mean [Right Arm] 115 Blood Pressure Position Sitting Pulse Oximetry 98 96 98 Oxygen Delivery Method Room Air Room Air Sepsis Recent Fever Within 48 Hours No Sepsis New/Unexplained Change in Mental Status N/A Sepsis Action Taken by Nursing No Action Required 04/07/22 07:47 Temperature Temperature Source Pulse Rate Pulse Rate [Apical] 67 Pulse Rhythm Pulse Rhythm [Apical] Regular Pulse Strength Pulse Strength [Apical] Normal Respiratory Rate 16 Respiratory Effort / Characteristics Non-Labored Spontaneous Respiratory Depth Normal Respiratory Pattern Blood Pressure Blood Pressure [Right Arm] 140/87 Blood Pressure Mean Blood Pressure Mean [Right Arm] 104 Blood Pressure Position Pulse Oximetry 95 Oxygen Delivery Method Room Air Sepsis Recent Fever Within 48 Hours Sepsis New/Unexplained Change in Mental Status Sepsis Action Taken by Nursing VITALS: Vitals are noted on the nurse's note and reviewed by myself. Vital signs stable. GENERAL: Pleasant female, in no acute distress, nondiaphoretic, well-developed well-nourished. SKIN: The skin was without rashes, erythema, edema, or bruising. There is no tenting of the skin. Capillary reflex less than 2 seconds. HEAD: Normocephalic atraumatic. EARS: External auditory canals clear, EYES: Pupils equal round and reactive to light and accommodation. Conjunctivae without injection, sclerae without icterus. Extraocular movements intact. NOSE: Patent, turbinates without inflammation or discharge. MOUTH: Mucous membranes mildly dry. Pharynx without erythema or exudate. Uvula midline. Airway patent. Tongue does not deviate. NECK: Supple without nuchal rigidity. No lymphadenopathy. No thyromegaly. Cervical spine is nontender. No JVD. HEART: Regular rate and rhythm LUNGS: Clear to auscultation bilaterally without wheezes, rales or rhonchi. No retractions or accessory muscle use. ABDOMEN: Positive bowel sounds x 4. Normal tympanic percussion. Soft, mild diffuse tenderness, without masses or organomegaly. Soliman sign negative. No guarding or rebound tenderness. No CVA tenderness MUSCULOSKELETAL: No muscle atrophy, erythema, or edema noted. NEURO: Patient was alert and oriented to person place and time. Normal sensation to light and sharp touch. No focal neurological deficits. Course Administered Medications Enoxaparin Sodium (Enoxaparin Inj 40 Mg/0.4 Ml Syr) 40 mg SQ QPM DENA Stop: 05/07/22 20:59 Last Admin: 04/07/22 20:45 Dose: 40 mg Documented By: MYAH Piperacillin Sod/Tazobactam (Sod 3.375 gm/ Dextrose) 115 mls @ 28.75 mls/hr IV Q8H DENA; Protocol Stop: 04/17/22 11:59 Last Admin: 04/07/22 20:45 Dose: 28.8 mls/hr Documented By: Infusion: 04/07/22 16:50 Dose: 0 mls/hr Documented By: Admin: 04/07/22 12:49 Dose: 28.8 mls/hr Documented By: [id number] Lactated Ringer's (Lr) 1,000 mls @ 125 mls/hr IV .Q8H DENA Stop: 05/07/22 10:59 Last Admin: 04/07/22 18:43 Dose: 125 mls/hr Documented By: Infusion: 04/07/22 18:43 Dose: 125 mls/hr Documented By: Admin: 04/07/22 11:42 Dose: 125 mls/hr Documented By: CG Acetaminophen (Ofirmev) 1,000 mg in 100 mls @ 400 mls/hr IV Q8H PRN PRN Reason: 1st Line Pain or Fever Stop: 04/10/22 11:06 Last Infusion: 04/07/22 15:00 Dose: 0 mls/hr Documented By: Admin: 04/07/22 14:33 Dose: 400 mls/hr Documented By: CG Discontinued Medications Sodium Chloride (Nss 1000ml) 1,000 mls @ 999 mls/hr IV .Q1H1M STA Stop: 04/07/22 05:11 Last Infusion: 04/07/22 05:51 Dose: 0 mls/hr Documented By: Admin: 04/07/22 04:27 Dose: 999 mls/hr Documented By: EMB Acetaminophen (Ofirmev) 1,000 mg in 100 mls @ 400 mls/hr IV NOW STA Stop: 04/07/22 06:05 Last Infusion: 04/07/22 06:29 Dose: 0 mls/hr Documented By: Admin: 04/07/22 06:01 Dose: 400 mls/hr Documented By: EMB Famotidine (Pepcid 20mg Iv Push) 20 mg in 5 mls @ 2.5 mls/min IV NOW STA Stop: 04/07/22 05:52 Last Admin: 04/07/22 06:01 Dose: 2.5 mls/min Documented By: LEANDRO Piperacillin Sod/Tazobactam Sod (Zosyn) 4.5 gm in 120 mls @ 240 mls/hr IV NOW ONE Stop: 04/07/22 06:50 Last Infusion: 04/07/22 08:17 Dose: 0 mls/hr Documented By: Admin: 04/07/22 07:47 Dose: 240 mls/hr Documented By: TW Sodium Chloride (Nss 1000ml) 1,000 mls @ 999 mls/hr IV .Q1H1M ONE Stop: 04/07/22 07:22 Last Infusion: 04/07/22 08:18 Dose: 0 mls/hr Documented By: Admin: 04/07/22 06:37 Dose: 999 mls/hr Documented By: LEANDRO Ioversol (Optiray 300 500ml) 120 ml IV ONCE ONE Stop: 04/07/22 05:16 Last Admin: 04/07/22 05:02 Dose: 120 ml Documented By: LETI Ondansetron HCl (Ondansetron Inj 2 Mg/Ml 2 Ml Vial) 4 mg IV NOW STA Stop: 04/07/22 04:12 Last Admin: 04/07/22 04:28 Dose: 4 mg Documented By: LEANDRO Ondansetron HCl (Ondansetron Home Pack 4mg Od Tab) 1 each PO NOW ONE Stop: 04/07/22 05:45 Last Admin: 04/07/22 06:34 Dose: Not Given Documented By: LEANDRO Ondansetron HCl (Ondansetron Inj 2 Mg/Ml 2 Ml Vial) 4 mg IV NOW STA Stop: 04/07/22 05:52 Last Admin: 04/07/22 06:01 Dose: 4 mg Documented By: LEANDRO Ondansetron HCl (Ondansetron Home Pack 4mg Od Tab) 1 each PO NOW ONE Stop: 04/07/22 05:52 Last Admin: 04/07/22 06:35 Dose: Not Given Documented By: LEANDRO Medical Decision Making Medical Records Attestation: I reviewed the patient's medical records. Home Medications Current Medication List: was personally reviewed by me Laboratory Data Attestation: I reviewed the patient's lab results. Result diagrams: 04/07/22 Unknown 04/07/22 Unknown Lab Results 04/07/22 Range/Units 06:39 SARS-CoV-2, RNA, NAAT POSITIVE A* (NEGATIVE) Imaging Data Attestation: I personally reviewed and interpreted this imaging study as follows: Radiologist's Impression: Abdomen/Pelvis CT 04/07/22 04:11 CT OF THE ABDOMEN AND PELVIS WITH CONTRAST CLINICAL HISTORY: mid back and abd pain, cholecystectomy on February 12, 2022 COMPARISON STUDY: CT of the abdomen and pelvis right upper quadrant ultrasound February 10, 2022. TECHNIQUE: Following IV administration of 120 mL of Optiray, axial images of the abdomen and pelvis were obtained from the lung bases to the proximal femurs. Images were reviewed in the axial, sagittal, and coronal planes. IV contrast was administered without complication. Automated exposure control was utilized for the study. A dose lowering technique was utilized adhering to the principles of ALARA. CT DOSE: 980.12 mGy.cm FINDINGS: Lung bases are unremarkable. There is hepatic steatosis. Spleen, adrenal glands, kidneys and pancreas are unremarkable. There is no peripancreatic infiltration. The gallbladder is surgically absent. Note is made of moderate stranding within the cholecystectomy bed and denise hepatis. No fluid collection is identified. The cystic duct stump is distended, measuring 8 mm in caliber. There is borderline dilatation of the common bile duct, measuring 7 mm. Wall enhancement of the common bile duct and the cystic duct stump is noted. There is no evidence for a bowel obstruction. The appendix is normal. Caliber and wall thickness of small and large bowel are normal. The colonic diverticulosis is noted without evidence for acute diverticulitis. A stent within the left common iliac vein extending into the IVC is patent. IMPRESSION: Moderate stranding within the denise hepatis and cholecystectomy bed with wall enhancement of the cystic duct stump and common bile duct which are slightly dilated. Although nonspecific in the postoperative setting, this infiltration and wall enhancement are greater than expected. Differential considerations include an occult retained common bile duct calculus or cholangitis. Findings discussed with Joie Patel at time of dictation. ACT 112: Negative or not required by law. Electronically signed by: Shalom Byrd M.D. 04/07/2022 6:39 AM Chest CTA 04/07/22 04:12 CT ANGIOGRAPHY OF THE CHEST, PULMONARY EMBOLUS PROTOCOL CLINICAL HISTORY: Atypical chest pain. Evaluate for pulmonary embolus. COMPARISON STUDY: Chest radiograph September 14, 2007 and April 07, 2022. TECHNIQUE: Following IV administration of 120 mL of Optiray, helical axial images of the chest were obtained utilizing the pulmonary embolus protocol. Maximal intensity projections and sagittal and coronal reformats were viewed on an independent 3D workstation. IV contrast was administered without complication. Automated exposure control was utilized for the study. A dose lowering technique was utilized adhering to the principles of ALARA. FINDINGS: No pulmonary emboli are identified. There is no thoracic aortic dissection. Size of the heart is normal. There is no pericardial effusion. No thoracic lymphadenopathy. There is no consolidation to suggest pneumonia. Subpleural opacities reflect atelectasis. No pneumothorax or pleural effusion is present. The central airways are patent. No acute fracture within the bony thorax. Hepatic steatosis is noted. The abdomen and pelvis CT will be reported separately. IMPRESSION: 1. No pulmonary emboli identified. 2. No acute intrathoracic findings. ACT 112: Negative or not required by law. Electronically signed by: Shalom Byrd M.D. 04/07/2022 6:30 AM Chest X-Ray 04/07/22 04:12 XR chest 1V portable CLINICAL HISTORY: Atypical chest pain. COMPARISON STUDY: None available at time of interpretation. FINDINGS: Lung volumes are normal. Lungs are clear. There is no pneumothorax or pleural effusion. Cardiac size is normal. Mediastinal contours are normal. There is no evidence for pulmonary edema. IMPRESSION: No acute cardiopulmonary findings. ACT 112: Negative or not required by law. Electronically signed by: Shalom Byrd M.D. 04/07/2022 6:40 AM MDM Narrative Prior records/ancillary studies reviewed. Triage Nursing notes reviewed. Additional history obtained from the family. The patient's history was concerning for chest pain, dyspnea, back pain, nausea, vomiting, diarrhea, and abdominal pain. Differential diagnosis: Etiologies such as cardiac, muscle skeletal, gastroenteritis, food borne illness, infections, appendicitis, diverticulitis, inflammatory bowel disease, obstruction, GI bleed, biliary pathology, as well as others were entertained. Physical examination findings: As above. Abdominal examination revealed mild diffuse tenderness. Vital signs reviewed and revealed stable. ER treatment provided: IV hydration 1 L NSS. Zofran, Pepcid, IV fluids, Zosyn On reassessment the patient felt better. Patient was tolerating p.o. intake. Diagnostics interpretation by me: EKG ordered for abdominal pain EKG: Normal sinus, normal intervals, no acute ST-T wave changes. Impression normal sinus and interpreted myself I think arrhythmia is unlikely. EKG shows normal sinus rhythm with no interval abnormalities such as QT prolongation or WPW. There are no findings to suggest Brugada syndrome. Cardiac monitoring in the emergency department reveals no tachycardic or bradycardic dysrhythmia. Hypertrophic cardiomyopathy was considered but there are no clear historical elements pointing toward this. EKG is not suggestive. The QRS voltage is not extremely large and there are no suggestive Q waves. The labs revealed elevated LFTs and T bili, normal lipase Imaging studies: Patient: CATARINA COTA (Female) : 62 Status: ER Date: 04/07/22 05:10 Room #: History: Chest Pain, eval for PE, mid back and abd pain, recent GB, APPENDIX PRESENT , 120 ML OPTIRAY 300 Slices: [id number] Priors: Tech: Chad Rojo @ [id number] Exams: CTA CHEST, CT ABDOMEN & PELVIS With Contrast Contrast: IV Amt: 120 ML Accession Numbers: [id number], [id number] Referring Physician: MARJAN HARRIS Preliminary Findings Only See Final Report For Complete Findings CTA of the chest, CT of the abdomen and pelvis with contrast. Indication: Chest pain, mid back and abdominal pain. Comparison: CT abdomen pelvis, 02/10/2022. Technique: Helical CT acquisition through the chest, abdomen, and pelvis after the administration of intravenous contrast. Axial, sagittal, and coronal reformats. 120 mL Optiray 300 intravenous contrast. Dose: DLP 980 mGy-cm. CTA CHEST: Overall heart size is within normal limits. Enlargement of the left atrium, measuring 4 cm in AP dimension. No definite coronary artery calcifications. Aorta has normal course and caliber without evidence of injury or dissection. Main pulmonary trunk is within normal limits of size. Timing of contrast is adequate to evaluate for pulmonary embolus to the level of the segmental pulmonary arteries. No filling defect is identified. No mediastinal lymphadenopathy. No mediastinal hematoma. Esophagus is within normal limits. Mild biapical pleural scarring. No consolidation. No suspicious pulmonary nodule. At the lung bases, there are subpleural reticular ground glass opacities, consistent with atelectasis. Airways are within normal limits. CT ABDOMEN & PELVIS With Contrast: Liver is within normal limits. Gallbladder is surgically absent. Common duct measures 6 mm. No intrahepatic biliary ductal dilation. Spleen is within normal limits. Pancreas and adrenal glands are within normal limits. Kidneys have normal size and contour. Symmetric enhancement of the renal parenchyma. No hydronephrosis or evidence of renal stone. Bladder is partially distended, limiting evaluation. Pelvic phleboliths. Reproductive organs are unremarkable as visualized. Colonic diverticulosis without evidence of diverticulitis. Normal appendix. No bowel obstruction. Stomach is within normal limits. No lymphadenopathy. No free intraperitoneal air or ascites. No abdominal wall hernia. Vasculature is unremarkable. No acute osseous abnormality. Degenerative changes of the spine and sacroiliac joints. IMPRESSION: 1. No evidence of pulmonary embolus or other acute thoracic findings. 2. No acute abdominal or pelvic findings. Radiologist: Tod Tinsley MD Consultation: A consultation was placed with the hospitalist. The case was discussed and d iagnostics were reviewed. Surgery was consulted, Dr. Weiner and he will follow the case. He recommends that the patient get an ERCP. GI was consulted, Dr. Anton and does not do ERCPs and Will contact [facility] to see if they are able to do this tomorrow.[facility] is agreeable to do the ERCP tomorrow and medicine will accept the patient. Patient will stayFor admission. exam and history concerning for choledocholithiasis with obstruction. Patient was started antibiotics. medicine, surgery and GI were consulted. She will be evaluated for admission. Patient was reassessed multiple times. She was feeling better. She was afebrile nontoxic. she will be admitted to the hospital. By the evaluation outlined above emergent etiologies such as appendicitis, diverticulitis, cardiac sources, mesenteric ischemia, aortic pathology, inflammatory bowel disease, renal colic, PUD, UTI, as well as others were deemed relatively unlikely. The pt informed about the findings as listed above. All questions were answered and pleased with the treatment. The chart was completed utilizing eFolder voice recognition software. Grammatical errors, random word insertions, pronoun errors, and incomplete sentences are an occassional consequence of this system due to software limitati ons, ambient noise, and hardware issues. Any formal questions or concerns about the content, text, or information contained within the body of this dictation should be directly addressed to the physician family assistant for clarification. Case signed out to oncoming provider pending GI being able to ERCP versus patient being transferred. Impression & Plan Choledocholithiasis with obstruction, Nausea vomiting and diarrhea, Upper back pain, Abdominal pain, Elevated LFTs Discharge Plan Visit Data Chief Complaint: Back Injury/Pain Stated Complaint: BACK PAIN,VOMITING,DIARRHEA,URINARY ED Provider: Marjan Harris ED Midlevel Provider: Joie Patel Discharge Problem: Choledocholithiasis with obstruction, Nausea vomiting and diarrhea, Upper back pain, Abdominal pain, Elevated LFTs Patient Disposition: Admitted As Inpatient Condition: Good Discharge Instructions Interventions: ED Discharge Assessment Last Done: 04/07/22 10:17 : Choledocholithiasis with obstruction Qualifiers: Cholecystitis presence: with cholecystitis Cholecystitis acuity: acute Qualified Code(s): K80.43 - Calculus of bile duct with acute cholecystitis with obstruction
[2022-04-07] MEDS ORDERED: OPTIRAY 300 500mL IV ONE (05:15)
[2022-04-07 05:34] LABS: Basophils # (auto) 0.04 K/uL (0-0.2); Basophils % (auto) 0.5 %; Eosinophils # (auto) 0.43 K/uL (0-0.50); Eosinophils % (auto) 5.8 %; Hematocrit (blood only) 45.6 % (34.1-44.9); Hemoglobin 15.5 g/dl (12.0-16.0); Immature Granulocytes # (auto) 0.02 K/uL (0.00-0.02); Immature Granulocytes % (auto) 0.3 %; Lymphocytes # (auto) 1.62 K/uL (1.2-3.4); Mean Corpuscular Hemoglobin 29.1 pg (25.0-34.0); Mean Corpuscular Volume 85.7 fL (80.0-100.0); Mean Platelet Volume 11.5 fL (9.4-12.3); Monocytes # (auto) 0.51 K/uL (0.24-0.82); Monocytes % (auto) 6.9 %; Neutrophils # (auto) 4.75 K/uL (1.4-6.5); Neutrophils % (auto) 64.5 %; Platelet Count 199 K/uL (130-400); RDW Coefficient of Variation 13.5 % (11.5-14.5); RDW Standard Deviation 42.1 fL (36.4-46.3); Red Blood Count 5.32 M/uL (3.93-5.22); White Blood Count 7.37 K/ul (4.8-10.8)
[2022-04-07 05:39] LABS: Appearance Urine Clear (Clear); Bacteria Urine Automated Negative (Negative); Blood Urine Trace (Negative); Cast Urine Automated 0 /lpf (0-5); Color Urine Dark Yellow; Epithelial Cell Urine Auto 20-30 /lpf (0-5); Glucose Urine UA Negative (Negative); Ketones Urine Negative (Negative); Leukocyte Esterase Urine Negative (Negative); Nitrite Urine Negative (Negative); Protein Urine Negative (Negative); Specific Gravity Urine 1.035 (1.000-1.030); Urobilinogen Urine Negative (Negative)
[2022-04-07] MEDS ORDERED: ONDANSETRON HOME PACK 4MG OD TAB PO ONE ×2 (05:44→05:51)
[2022-04-07] MEDS ORDERED: FAMOTIDINE 20MG IV PUSH 20 MG/5 ML SYR IV STA (05:51)
[2022-04-07] MEDS ORDERED: ACETAMINOPHEN 1,000 MG/100 ML VIAL IV STA (05:51)
[2022-04-07 06:00] LABS: Troponin I High Sensitivity 6.5 pg/ml (0-14)
[2022-04-07 06:03] LABS: BUN Creatinine Ratio 9.4 (10-20); Calcium 9.2 mg/dl (8.5-10.1); Creatinine Clr Calc Pharmacy 78.3 ml/min; Est GFR (African American) 86.3 ml/min; Est GFR (Non-African American) 74.5 ml/min; Potassium 3.9 mmol/L (3.5-5.1)
[2022-04-07 06:17] LABS: Bilirubin Urine 2+ (Negative)
[2022-04-07 06:18] LABS: Albumin Globulin Ratio 1.5 (0.9-2); Albumin Level 4.2 gm/dl (3.4-5.0); Bilirubin,Total 5.6 mg/dl (0.2-1.0); Globulin 2.8 gm/dl (2.5-4.0)
[2022-04-07] MEDS ORDERED: PIPERACILLIN/TAZOBACTAM 4.5 GM/120 ML BAG IV ONE (06:21)
[2022-04-07] MEDS ORDERED: SODIUM CHLORIDE 0.9% 1000ML 1,000 ML IV ONE (06:22)
--- NOTE | 2022-04-07 06:32 | CT Scan Report ---
CT ANGIOGRAPHY OF THE CHEST, PULMONARY EMBOLUS PROTOCOL CLINICAL HISTORY: Atypical chest pain. Evaluate for pulmonary embolus. COMPARISON STUDY: Chest radiograph September 14, 2007 and April 07, 2022. TECHNIQUE: Following IV administration of 120 mL of Optiray, helical axial images of the chest were o btained utilizing the pulmonary embolus protocol. Maximal intensity projections and sagittal and cor onal reformats were viewed on an independent 3D workstation. IV contrast was administered without co mplication. Automated exposure control was utilized for the study. A dose lowering technique was ut ilized adhering to the principles of ALARA. FINDINGS: No pulmonary emboli are identified. There is no thoracic aortic dissection. Size of the he art is normal. There is no pericardial effusion. No thoracic lymphadenopathy. There is no consolidati on to suggest pneumonia. Subpleural opacities reflect atelectasis. No pneumothorax or pleural effusio n is present. The central airways are patent. No acute fracture within the bony thorax. Hepatic steat osis is noted. The abdomen and pelvis CT will be reported separately. IMPRESSION: 1. No pulmonary emboli identified. 2. No acute intrathoracic findings. ACT 112: Negative or not required by law. Electronically signed by: Shalom Byrd M.D. 04/07/2022 6:30 AM
--- NOTE | 2022-04-07 06:41 | CT Scan Report ---
CT OF THE ABDOMEN AND PELVIS WITH CONTRAST CLINICAL HISTORY: mid back and abd pain, cholecystectomy on February 12, 2022 COMPARISON STUDY: CT of the abdomen and pelvis right upper quadrant ultrasound February 10, 2022. TECHNIQUE: Following IV administration of 120 mL of Optiray, axial images of the abdomen and pelvis w ere obtained from the lung bases to the proximal femurs. Images were reviewed in the axial, sagittal, and coronal planes. IV contrast was administered without complication. Automated exposure control w as utilized for the study. A dose lowering technique was utilized adhering to the principles of CINTHYA Decker. CT DOSE: 980.12 mGy.cm FINDINGS: Lung bases are unremarkable. There is hepatic steatosis. Spleen, adrenal glands, kidneys an d pancreas are unremarkable. There is no peripancreatic infiltration. The gallbladder is surgically a bsent. Note is made of moderate stranding within the cholecystectomy bed and denise hepatis. No fluid collection is identified. The cystic duct stump is distended, measuring 8 mm in caliber. There is bor derline dilatation of the common bile duct, measuring 7 mm. Wall enhancement of the common bile duct and the cystic duct stump is noted. There is no evidence for a bowel obstruction. The appendix is nor mal. Caliber and wall thickness of small and large bowel are normal. The colonic diverticulosis is no collin without evidence for acute diverticulitis. A stent within the left common iliac vein extending in to the IVC is patent. IMPRESSION: Moderate stranding within the denise hepatis and cholecystectomy bed with wall enhancemen t of the cystic duct stump and common bile duct which are slightly dilated. Although nonspecific in t he postoperative setting, this infiltration and wall enhancement are greater than expected. Different ial considerations include an occult retained common bile duct calculus or cholangitis. Findings disc ussed with Joie Patel at time of dictation. ACT 112: Negative or not required by law. Electronically signed by: Shalom Byrd M.D. 04/07/2022 6:39 AM
--- NOTE | 2022-04-07 06:41 | XRay Report ---
XR chest 1V portable CLINICAL HISTORY: Atypical chest pain. COMPARISON STUDY: None available at time of interpretation. FINDINGS: Lung volumes are normal. Lungs are clear. There is no pneumothorax or pleural effusion. Car diac size is normal. Mediastinal contours are normal. There is no evidence for pulmonary edema. IMPRESSION: No acute cardiopulmonary findings. ACT 112: Negative or not required by law. Electronically signed by: Shalom Byrd M.D. 04/07/2022 6:40 AM
[2022-04-07 07:06] LABS: INR 1.2 (0.9-1.1); Partial Thromboplastin Ratio 1.3; Partial Thromboplastin Time 34.8 Seconds (21.0-31.0); Prothrombin Time 12.4 Seconds (9.0-12.0)
--- NOTE | 2022-04-07 07:38 | Electrocardiogram Report ---
Test Reason : Blood Pressure : / mmHG Vent. Rate : 075 BPM Atrial Rate : 075 BPM P-R Int : 164 ms QRS Dur : 086 ms QT Int : 406 ms P-R-T Axes : 053 019 032 degrees QTc Int : 453 ms Normal sinus rhythm Normal ECG When compared with ECG of 10-FEB-2022 17:47, No significant change was found Confirmed by Tod Pulido ([id number]) on 04/07/2022 7:38:27 AM Referred By: Yoni Alvarez Confirmed By:Alberto Pulido
--- NOTE | 2022-04-07 08:01 | History & Physical Report ---
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 Will hold Xarelto in anticipation of ERCP and treat with Lovenox prophylactically below. (3) Hypertension: Plan: Hold propranolol 20 mg p.o. twice daily to avoid hypotension Plan VTE Prophylaxis - Lovenox 40mg SQ daily Diet - NPO Disposition - admit to PCU Admission and Anticipated Discharge Date Admission Date: April 07, 2022 History of Present Illness Chief Complaint: Back pain Primary Care Provider: Yoni Alvarez DO Maeve Feliciano is a 61 year old female who presents to the ER with back pain, dark urine, nausea, vomiting and diarrhea. She reports her symptoms started last week. On Thursday she could not get comfortable and her urine started turning dark. Her blood pressure was high at home. She started having nausea vomiting and loose stools therefore decided to come to the ER today. Her back pain is worse on deep inspiration and movement. She is currently not some back pain when lying still. She recently had a laparoscopic cholecystectomy on February 12 due to acute cholecystitis. In the ER SARS-CoV-2 PCR was positive. She previously had COVID in 2019 and does not have any of the same symptoms. She reports a mild cough which is not unusual for her. No fevers, chills, shortness of breath, loss of taste or smell, chest pain. She has been vaccinated twice with the Pfizer vaccine which caused this to be variable for the day therefore did not receive the booster. Allergies Allergy/AdvReac Type Severity Reaction Status Date / Time No Known Allergies Allergy Unknown Verified 04/07/22 08:23 Home Medications Medication Instructions Recorded Confirmed Type multivitamin 1 tab PO DAILY 05/22/18 04/07/22 History aspirin 81 mg tablet,delayed 81 mg PO QPM 02/20/21 04/07/22 History release hydroxyzine HCl 25 mg tablet 25 mg PO QID PRN Situational 03/06/21 04/07/22 Rx anxiety #60 tabs docusate sodium 100 mg capsule 100 mg PO BID 02/17/22 04/07/22 History (Stool Softener) ezetimibe 10 mg tablet (Zetia) 10 mg PO DAILY #90 tabs 02/24/22 04/07/22 Rx propranolol 20 mg tablet 20 mg PO BID #180 tabs 02/24/22 04/07/22 Rx omega-3 fatty acids-fish oil 684 1 cap PO DAILY 04/07/22 04/07/22 History mg-1,200 mg capsule,delayed release rivaroxaban 20 mg tablet (Xarelto) 20 mg PO QPM 04/07/22 04/07/22 History Past Med/Surg History Medical History (Updated 04/08/22 @ 07:35 by Ynr Martinez MD) Acute leg pain Acute upper abdominal pain Chronic back pain History of Lyme disease May-Thurner syndrome Nausea & vomiting Post-operative nausea and vomiting Psoriasis Surgical History H/O tubal ligation History of hysterectomy Hx laparoscopic cholecystectomy (02/13/22) Laparoscopic Cholecystectomy(Not Applicable) - Misha Jaffe, DO Hx of colonoscopy Hx of tonsillectomy S/P section Family History Father Myocardial infarction Cardiac disorder Mother Alcohol abuse COPD (chronic obstructive pulmonary disease) Liver cancer Gallbladder disease Grandmother (Maternal) Alcohol abuse Cardiac disorder COPD (chronic obstructive pulmonary disease) Liver cancer Myocardial infarction Anxiety Gallbladder disease Family/Other History of blood clots Sister Anxiety Gallbladder disease Denies family history of Ovarian cancer Prostate cancer Breast cancer Colorectal cancer Social History Smoking Status: Never smoker Second Hand Exposure: No; Hx Alcohol Use: No Hx Substance Use: No Preferred Language: Tanzanian Communication Ability: Effective Visual Impairment: No Limitations Hearing Ability: Normal Brush Cleaner Required: No Beliefs That Will Affect Care: None marital status: Current Living Situation: Spouse current occupational status: employed 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 Feels Safe at Home: Yes Childhood Exposure to Second-Hand Smoke: Yes Dental Care, Regularly: Yes Physical Activity Frequency: Daily Seatbelt Use: always Sunscreen Use: Yes Assistive Devices: Glasses Review of Systems Review of Systems: All systems reviewed & are unremarkable except as noted in Subjective Physical Exam Constitutional: WD/WN, vitals as above Eyes: + anicteric sclerae; normal pupil size ENMT: external ear and nose normal, oropharynx normal Neck: trachea midline, no thyromegaly Cardiovascular: RRR, no murmur, no edema Gastrointestinal (Abdomen): Inspection/Auscultation: abdomen normal to inspection and normal bowel sounds; abdomen not distended Percussion/Palpation: + abdomen tender (Right upper quadrant and epigastric) and abdomen soft; no guarding and abdomen not rigid Musculoskeletal: no cyanosis or clubbing, extremities motor strength 5/5 Skin: no rashes, warm and dry Neurologic: moves all extremities and awake; not confused Psychiatric: A+Ox3, euthymic affect Results & Data Results & Data ([facility]) Vital Signs (Past 12 Hours) Vital Signs Temp Pulse Pulse Resp BP BP Pulse Ox 04/07/22 07:47 67 16 140/87 95 04/07/22 04:40 74 16 146/100 H 98 04/07/22 04:28 96 04/07/22 03:59 36.8 C 80 18 158/92 H 98 O2 Del Method 04/07/22 07:47 Room Air 04/07/22 04:40 04/07/22 04:28 Room Air 04/07/22 03:59 Room Air Laboratory Results Abnormal lab results 04/07/22 04/07/22 04/07/22 Range/Units 06:39 Unknown Unknown RBC 5.32 H (3.93-5.22) M/uL Hct 45.6 H (34.1-44.9) % PT (9.0-12.0) Seconds INR (0.9-1.1) APTT (21.0-31.0) Seconds BUN/Creatinine Ratio 9.4 L (10-20) Glucose 112 H (70-99(Fasting)) mg/dl Total Bilirubin 5.6 H (0.2-1.0) mg/dl AST 584 H (13-39) U/L ALT 980 H (7-52) U/L Alkaline Phosphatase 254 H (34-104) U/L Ur Specific [place] (1.000-1.030) Urine Blood (Negative) Urine Bilirubin (Negative) Urine RBC (Auto) (0-4) /hpf U Epithel Cells (Auto) (0-5) /lpf SARS-CoV-2, RNA, NAAT POSITIVE A* (NEGATIVE) 04/07/22 04/07/22 Range/Units Unknown Unknown RBC (3.93-5.22) M/uL Hct (34.1-44.9) % PT 12.4 H (9.0-12.0) Seconds INR 1.2 H (0.9-1.1) APTT 34.8 H (21.0-31.0) Seconds BUN/Creatinine Ratio (10-20) Glucose (70-99(Fasting)) mg/dl Total Bilirubin (0.2-1.0) mg/dl AST (13-39) U/L ALT (7-52) U/L Alkaline Phosphatase (34-104) U/L Ur Specific [place] 1.035 H (1.000-1.030) Urine Blood Trace H (Negative) Urine Bilirubin 2+ H (Negative) Urine RBC (Auto) 5-10 H (0-4) /hpf U Epithel Cells (Auto) 20-30 H (0-5) /lpf SARS-CoV-2, RNA, NAAT (NEGATIVE) Diagnostic Findings XR chest 1V portable CLINICAL HISTORY: Atypical chest pain. COMPARISON STUDY: None available at time of interpretation. FINDINGS: Lung volumes are normal. Lungs are clear. There is no pneumothorax or pleural effusion. Cardiac size is normal. Mediastinal contours are normal. There is no evidence for pulmonary edema. IMPRESSION: No acute cardiopulmonary findings. CT ANGIOGRAPHY OF THE CHEST, PULMONARY EMBOLUS PROTOCOL CLINICAL HISTORY: Atypical chest pain. Evaluate for pulmonary embolus. COMPARISON STUDY: Chest radiograph September 14, 2007 and April 07, 2022. TECHNIQUE: Following IV administration of 120 mL of Optiray, helical axial images of the chest were obtained utilizing the pulmonary embolus protocol. Maximal intensity projections and sagittal and coronal reformats were viewed on an independent 3D workstation. IV contrast was administered without complication. Automated exposure control was utilized for the study. A dose lowering technique was utilized adhering to the principles of ALARA. FINDINGS: No pulmonary emboli are identified. There is no thoracic aortic dissection. Size of the heart is normal. There is no pericardial effusion. No thoracic lymphadenopathy. There is no consolidation to suggest pneumonia. Subpleural opacities reflect atelectasis. No pneumothorax or pleural effusion is present. The central airways are patent. No acute fracture within the bony thorax. Hepatic steatosis is noted. The abdomen and pelvis CT will be reported separately. IMPRESSION: 1. No pulmonary emboli identified. 2. No acute intrathoracic findings. CT OF THE ABDOMEN AND PELVIS WITH CONTRAST CLINICAL HISTORY: mid back and abd pain, cholecystectomy on February 12, 2022 COMPARISON STUDY: CT of the abdomen and pelvis right upper quadrant ultrasound February 10, 2022. TECHNIQUE: Following IV administration of 120 mL of Optiray, axial images of the abdomen and pelvis were obtained from the lung bases to the proximal femurs. Images were reviewed in the axial, sagittal, and coronal planes. IV contrast was administered without complication. Automated exposure control was utilized for the study. A dose lowering technique was utilized adhering to the principles of ALARA. CT DOSE: 980.12 mGy.cm FINDINGS: Lung bases are unremarkable. There is hepatic steatosis. Spleen, adrenal glands, kidneys and pancreas are unremarkable. There is no peripancreatic infiltration. The gallbladder is surgically absent. Note is made of moderate stranding within the cholecystectomy bed and denise hepatis. No fluid collection is identified. The cystic duct stump is distended, measuring 8 mm in caliber. There is borderline dilatation of the common bile duct, measuring 7 mm. Wall enhancement of the common bile duct and the cystic duct stump is noted. There is no evidence for a bowel obstruction. The appendix is normal. Caliber and wall thickness of small and large bowel are normal. The colonic diverticulosis is noted without evidence for acute diverticulitis. A stent within the left common iliac vein extending into the IVC is patent. IMPRESSION: Moderate stranding within the denise hepatis and cholecystectomy bed with wall enhancement of the cystic duct stump and common bile duct which are slightly dilated. Although nonspecific in the postoperative setting, this infiltration and wall enhancement are greater than expected. Differential considerations include an occult retained common bile duct calculus or cholangitis. Findings discussed with Joie Patel at time of dictation. Medications Administered ER medications given: NSS 1 hour bolus x2 Acetaminophen 1 g IV Pepcid 20 mg IV Zosyn 4.5 g IV Ondansetron 4 mg IV ECG Indication: back/shoulder pain Rate (beats per minute): 75 Rhythm: normal sinus Findings: no acute ischemic change Comparison ECG Date: from (February 10, 2022) Change: no significant change Code Status & VTE Plan Code Status Full VTE Prophylaxis Plan VTE Prophylaxis will be ordered: Yes PG Care Time/CCT Total # of Minutes Spent Total Time Spent with Patient: Total time spent is greater than 50% in coordination of care (as documented) at patient's floor/unit and/or counseling patient: Coding Level of Care Code 48071 Initial Inpt Care Lvl 2 Diagnoses Choledocholithiasis with obstruction K80.51 May-Thurner syndrome I87.1 Hypertension I10
--- NOTE | 2022-04-07 10:20 | Surgery Consultation ---
Date of Consultation April 07, 2022 History of Present Illness Attending Physician: Yrn Martinez MD Allergies Allergy/AdvReac Type Severity Reaction Status Date / Time No Known Allergies Allergy Unknown Verified 04/07/22 08:23 Home Medications Medication Instructions Recorded Confirmed Type multivitamin 1 tab PO DAILY 05/22/18 04/07/22 History aspirin 81 mg tablet,delayed 81 mg PO QPM 02/20/21 04/07/22 History release hydroxyzine HCl 25 mg tablet 25 mg PO QID PRN Situational 03/06/21 04/07/22 Rx anxiety #60 tabs docusate sodium 100 mg capsule 100 mg PO BID 02/17/22 04/07/22 History (Stool Softener) ezetimibe 10 mg tablet (Zetia) 10 mg PO DAILY #90 tabs 02/24/22 04/07/22 Rx propranolol 20 mg tablet 20 mg PO BID #180 tabs 02/24/22 04/07/22 Rx omega-3 fatty acids-fish oil 684 1 cap PO DAILY 04/07/22 04/07/22 History mg-1,200 mg capsule,delayed release rivaroxaban 20 mg tablet (Xarelto) 20 mg PO QPM 04/07/22 04/07/22 History Patient History Medical History Acute leg pain Acute upper abdominal pain Chronic back pain History of Lyme disease Nausea & vomiting Post-operative nausea and vomiting Psoriasis Surgical History H/O tubal ligation History of hysterectomy Hx laparoscopic cholecystectomy (02/13/22) Laparoscopic Cholecystectomy(Not Applicable) - Misha Jaffe, Hx of colonoscopy Hx of tonsillectomy S/P section Family History Father Myocardial infarction Cardiac disorder Mother Alcohol abuse COPD (chronic obstructive pulmonary disease) Liver cancer Gallbladder disease Grandmother (Maternal) Alcohol abuse Cardiac disorder COPD (chronic obstructive pulmonary disease) Liver cancer Myocardial infarction Anxiety Gallbladder disease Family/Other History of blood clots Sister Anxiety Gallbladder disease Denies family history of Ovarian cancer Prostate cancer Breast cancer Colorectal cancer Social History Smoking Status: Never smoker Second Hand Exposure: No; Hx Alcohol Use: No Hx Substance Use: No Preferred Language: Turkmen Communication Ability: Effective Visual Impairment: No Limitations Hearing Ability: Normal Preschool Program Director Required: No Beliefs That Will Affect Care: None marital status: Current Living Situation: Spouse current occupational status: employed 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 Feels Safe at Home: Yes Childhood Exposure to Second-Hand Smoke: Yes Dental Care, Regularly: Yes Physical Activity Frequency: Daily Seatbelt Use: always Sunscreen Use: Yes Assistive Devices: None Results & Data ([facility]) Vital Signs (Past 12 Hours) Vital Signs Temp Pulse Pulse Resp BP BP Pulse Ox 04/07/22 10:16 63 16 143/78 H 97 04/07/22 09:31 64 16 137/81 97 04/07/22 07:47 67 16 140/87 95 04/07/22 04:40 74 16 146/100 H 98 04/07/22 04:28 96 04/07/22 03:59 36.8 C 80 18 158/92 H 98 O2 Del Method 04/07/22 10:16 Room Air 04/07/22 09:31 Room Air 04/07/22 07:47 Room Air 04/07/22 04:40 04/07/22 04:28 Room Air 04/07/22 03:59 Room Air Diagnostic Findings CT OF THE ABDOMEN AND PELVIS WITH CONTRAST CLINICAL HISTORY: mid back and abd pain, cholecystectomy on February 12, 2022 COMPARISON STUDY: CT of the abdomen and pelvis right upper quadrant ultrasound February 10, 2022. TECHNIQUE: Following IV administration of 120 mL of Optiray, axial images of the abdomen and pelvis were obtained from the lung bases to the proximal femurs. Images were reviewed in the axial, sagittal, and coronal planes. IV contrast was administered without complication. Automated exposure control was utilized for the study. A dose lowering technique was utilized adhering to the principles of ALARA. CT DOSE: 980.12 mGy.cm FINDINGS: Lung bases are unremarkable. There is hepatic steatosis. Spleen, adrenal glands, kidneys and pancreas are unremarkable. There is no peripancreatic infiltration. The gallbladder is surgically absent. Note is made of moderate stranding within the cholecystectomy bed and denise hepatis. No fluid collection is identified. The cystic duct stump is distended, measuring 8 mm in caliber. There is borderline dilatation of the common bile duct, measuring 7 mm. Wall enhancement of the common bile duct and the cystic duct stump is noted. There is no evidence for a bowel obstruction. The appendix is normal. Caliber and wall thickness of small and large bowel are normal. The colonic diverticulosis is noted without evidence for acute diverticulitis. A stent within the left common iliac vein extending into the IVC is patent. IMPRESSION: Moderate stranding within the denise hepatis and cholecystectomy bed with wall enhancement of the cystic duct stump and common bile duct which are slightly dilated. Although nonspecific in the postoperative setting, this infiltration and wall enhancement are greater than expected. Differential considerations include an occult retained common bile duct calculus or cholangitis. Findings discussed with Joie Patel at time of dictation. ACT 112: Negative or not required by law. Electronically signed by: Shlaom Byrd M.D. 04/07/2022 6:39 AM PG Care Time/CCT Total # of Minutes Spent Total Time Spent with Patient: Total time spent is greater than 50% in coordination of care (as documented) at patient's floor/unit and/or counseling patient: Coding
--- NOTE | 2022-04-07 10:26 | Surgery Consultation ---
Date of Consultation April 07, 2022 Assessment & Plan (1) Choledocholithiasis with obstruction: Patient does not need surgical intervention IV antibiotics and gastroenterology consultation Will likely need an ERCP with possible stenting We will follow with you in the hospital History of Present Illness Attending Physician: Yrn Martinez MD History of Present Illness 61-year-old female presenting to the emergency room with back pain Found to have severely elevated liver function studies and findings on CAT scan consistent with Edema at the denise hepatis and some common bile duct and cystic duct dilatation She likely has common bile duct obstruction She is status post laparoscopic cholecystectomy on 02/12/[address] Jaffe And recently on 02/28/2022 was seen in the office and doing quite well Her white blood cell count is 7.3 Allergies Allergy/AdvReac Type Severity Reaction Status Date / Time No Known Allergies Allergy Unknown Verified 04/07/22 08:23 Home Medications Medication Instructions Recorded Confirmed Type multivitamin 1 tab PO DAILY 05/22/18 04/07/22 History aspirin 81 mg tablet,delayed 81 mg PO QPM 02/20/21 04/07/22 History release hydroxyzine HCl 25 mg tablet 25 mg PO QID PRN Situational 03/06/21 04/07/22 Rx anxiety #60 tabs docusate sodium 100 mg capsule 100 mg PO BID 02/17/22 04/07/22 History (Stool Softener) ezetimibe 10 mg tablet (Zetia) 10 mg PO DAILY #90 tabs 02/24/22 04/07/22 Rx propranolol 20 mg tablet 20 mg PO BID #180 tabs 02/24/22 04/07/22 Rx omega-3 fatty acids-fish oil 684 1 cap PO DAILY 04/07/22 04/07/22 History mg-1,200 mg capsule,delayed release rivaroxaban 20 mg tablet (Xarelto) 20 mg PO QPM 04/07/22 04/07/22 History Patient History Medical History Acute leg pain Acute upper abdominal pain Chronic back pain History of Lyme disease Nausea & vomiting Post-operative nausea and vomiting Psoriasis Surgical History H/O tubal ligation History of hysterectomy Hx laparoscopic cholecystectomy (02/13/22) Laparoscopic Cholecystectomy(Not Applicable) - Misha Jaffe, DO Hx of colonoscopy Hx of tonsillectomy S/P section Family History Father Myocardial infarction Cardiac disorder Mother Alcohol abuse COPD (chronic obstructive pulmonary disease) Liver cancer Gallbladder disease Grandmother (Maternal) Alcohol abuse Cardiac disorder COPD (chronic obstructive pulmonary disease) Liver cancer Myocardial infarction Anxiety Gallbladder disease Family/Other History of blood clots Sister Anxiety Gallbladder disease Denies family history of Ovarian cancer Prostate cancer Breast cancer Colorectal cancer Social History Smoking Status: Never smoker Second Hand Exposure: No; Hx Alcohol Use: No Hx Substance Use: No Preferred Language: Bahamian Communication Ability: Effective Visual Impairment: No Limitations Hearing Ability: Normal Turbine Engineer Required: No Beliefs That Will Affect Care: None marital status: Current Living Situation: Spouse current occupational status: employed 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 Feels Safe at Home: Yes Childhood Exposure to Second-Hand Smoke: Yes Dental Care, Regularly: Yes Physical Activity Frequency: Daily Seatbelt Use: always Sunscreen Use: Yes Assistive Devices: None Review of Systems Review of Systems: All systems reviewed & are unremarkable except as noted in HPI & below Physical Exam Physical Exam: Patient is awake and alert in no distress She does not have any significant abdominal tenderness and her abdomen is soft Results & Data ([facility]) Vital Signs (Past 12 Hours) Vital Signs Temp Pulse Pulse Resp BP BP Pulse Ox 04/07/22 10:16 63 16 143/78 H 97 04/07/22 09:31 64 16 137/81 97 04/07/22 07:47 67 16 140/87 95 04/07/22 04:40 74 16 146/100 H 98 04/07/22 04:28 96 04/07/22 03:59 36.8 C 80 18 158/92 H 98 O2 Del Method 04/07/22 10:16 Room Air 04/07/22 09:31 Room Air 04/07/22 07:47 Room Air 04/07/22 04:40 04/07/22 04:28 Room Air 04/07/22 03:59 Room Air PG Care Time/CCT Total # of Minutes Spent Total Time Spent with Patient: Total time spent is greater than 50% in coordination of care (as documented) at patient's floor/unit and/or counseling patient: Coding Level of Care Code None Diagnoses Choledocholithiasis with obstruction K80.51
[2022-04-07] MEDS ORDERED: ONDANSETRON INJ 2 MG/ML 2 ML VIAL IV PRN (10:31)
[2022-04-07] MEDS ORDERED: ACETAMINOPHEN 325 MG TAB PO PRN (10:31)
[2022-04-07] MEDS ORDERED: HYDROmorphone INJ 0.5 MG/0.5 ML SYR IV PRN ×2 (11:07)
[2022-04-07] MEDS ORDERED: ACETAMINOPHEN 1,000 MG/100 ML VIAL IV PRN (11:07)
--- NOTE | 2022-04-07 11:16 | Gastrointestinal Consultation ---
Date of Consultation April 07, 2022 Assessment & Plan (1) Choledocholithiasis with obstruction: Pleasant woman who needs ERCP. I have discussed the procedure and risks for ERCP with the patient emphasizing the risks of bleeding, perforation, cholangitis and pancreatitis. It will be done by Dr. Lyons tomorrow History of Present Illness Reason for Consultation: jaundice Attending Physician: Yrn Martinez MD History of Present Illness 61 year old female 6 weeks s/p lap silas admitted with back pain and jaundice. CT shows changes consistent with choledocholithiasis. She had been doing well after her surgery but developed back pain and dark urine so she presented to the ED. No prior history of jaundice. On xarelto because of stent but has not taken since Thursday. Allergies Allergy/AdvReac Type Severity Reaction Status Date / Time No Known Allergies Allergy Unknown Verified 04/07/22 08:23 Home Medications Medication Instructions Recorded Confirmed Type multivitamin 1 tab PO DAILY 05/22/18 04/07/22 History aspirin 81 mg tablet,delayed 81 mg PO QPM 02/20/21 04/07/22 History release hydroxyzine HCl 25 mg tablet 25 mg PO QID PRN Situational 03/06/21 04/07/22 Rx anxiety #60 tabs docusate sodium 100 mg capsule 100 mg PO BID 02/17/22 04/07/22 History (Stool Softener) ezetimibe 10 mg tablet (Zetia) 10 mg PO DAILY #90 tabs 02/24/22 04/07/22 Rx propranolol 20 mg tablet 20 mg PO BID #180 tabs 02/24/22 04/07/22 Rx omega-3 fatty acids-fish oil 684 1 cap PO DAILY 04/07/22 04/07/22 History mg-1,200 mg capsule,delayed release rivaroxaban 20 mg tablet (Xarelto) 20 mg PO QPM 04/07/22 04/07/22 History Patient History Medical History Acute leg pain Acute upper abdominal pain Chronic back pain History of Lyme disease Nausea & vomiting Post-operative nausea and vomiting Psoriasis Surgical History H/O tubal ligation History of hysterectomy Hx laparoscopic cholecystectomy (02/13/22) Laparoscopic Cholecystectomy(Not Applicable) - Misha Jaffe, DO Hx of colonoscopy Hx of tonsillectomy S/P section Family History Father Myocardial infarction Cardiac disorder Mother Alcohol abuse COPD (chronic obstructive pulmonary disease) Liver cancer Gallbladder disease Grandmother (Maternal) Alcohol abuse Cardiac disorder COPD (chronic obstructive pulmonary disease) Liver cancer Myocardial infarction Anxiety Gallbladder disease Family/Other History of blood clots Sister Anxiety Gallbladder disease Denies family history of Ovarian cancer Prostate cancer Breast cancer Colorectal cancer Social History Smoking Status: Never smoker Second Hand Exposure: No; Hx Alcohol Use: No Hx Substance Use: No Preferred Language: Romansh Communication Ability: Effective Visual Impairment: No Limitations Hearing Ability: Normal Library Historian Required: No Beliefs That Will Affect Care: None marital status: Current Living Situation: Spouse current occupational status: employed 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 Feels Safe at Home: Yes Childhood Exposure to Second-Hand Smoke: Yes Dental Care, Regularly: Yes Physical Activity Frequency: Daily Seatbelt Use: always Sunscreen Use: Yes Assistive Devices: None Review of Systems Review of Systems: All systems reviewed & are unremarkable except as noted in HPI & below Physical Exam Physical Exam: Exam not done at this time due to COVID positivity Constitutional: WD/WN, vitals as above Results & Data ([place]) Vital Signs (Past 12 Hours) Vital Signs Temp Pulse Pulse Resp BP BP Pulse Ox 04/07/22 10:16 63 16 143/78 H 97 04/07/22 09:31 64 16 137/81 97 04/07/22 07:47 67 16 140/87 95 04/07/22 04:40 74 16 146/100 H 98 04/07/22 04:28 96 04/07/22 03:59 36.8 C 80 18 158/92 H 98 O2 Del Method 04/07/22 10:16 Room Air 04/07/22 09:31 Room Air 04/07/22 07:47 Room Air 04/07/22 04:40 04/07/22 04:28 Room Air 04/07/22 03:59 Room Air Laboratory Results 09/05/22 09/05/22 09/05/22 Range/Units Unknown Unknown Unknown WBC (4.8-10.8) K/ul RBC (3.93-5.22) M/uL Hgb (12.0-16.0) g/dl Hct (34.1-44.9) % MCV (80.0-100.0) fL MCH (25.0-34.0) pg MCHC (32.0-36.0) g/dL RDW Std Deviation (36.4-46.3) fL RDW Coeff of Jenelle (11.5-14.5) % Plt Count (130-400) K/uL MPV (9.4-12.3) fL Immature Gran % (Auto) % Neut % (Auto) % Lymph % (Auto) % [place] % (Auto) % Eos % (Auto) % Baso % (Auto) % Neut # (Auto) (1.4-6.5) K/uL Lymph # (Auto) (1.2-3.4) K/uL [place] # (Auto) (0.24-0.82) K/uL Eos # (Auto) (0-0.50) K/uL Baso # (Auto) (0-0.2) K/uL Immature Gran # (Auto) (0.00-0.02) K/uL PT 12.4 H (9.0-12.0) Seconds INR 1.2 H (0.9-1.1) APTT 34.8 H (21.0-31.0) Seconds PTT Ratio 1.3 Sodium 138 (136-145) mmol/L Potassium 3.9 (3.5-5.1) mmol/L Chloride 104 (98-107) mmol/L Carbon Dioxide 25 (21-32) mmol/L Anion Gap 9 (3-11) BUN 8 (6-23) mg/dl Creatinine 0.85 (0.6-1.2) mg/dl Est Cr Clr Drug Dosing 78.3 ml/min Est GFR ( Amer) 86.3 ml/min Est GFR (Non-Af Amer) 74.5 ml/min BUN/Creatinine Ratio 9.4 L (10-20) Glucose 112 H (70-99(Fasting)) mg/dl Calcium 9.2 (8.5-10.1) mg/dl Total Bilirubin 5.6 H (0.2-1.0) mg/dl AST 584 H (13-39) U/L ALT 980 H (7-52) U/L Alkaline Phosphatase 254 H (34-104) U/L Troponin I High Sens 6.5 D (0-14) pg/ml Total Protein 7.0 (6.0-8.3) gm/dl Albumin 4.2 (3.4-5.0) gm/dl Globulin 2.8 (2.5-4.0) gm/dl Albumin/Globulin Ratio 1.5 (0.9-2) Lipase 15 (11-82) U/L Urine Color Dark Yellow Urine Appearance Clear (Clear) Urine pH 6.0 (4.5-7.5) Ur Specific [place] 1.035 H (1.000-1.030) Urine Protein Negative (Negative) Urine Glucose (UA) Negative (Negative) Urine Ketones Negative (Negative) Urine Blood Trace H (Negative) Urine Nitrite Negative (Negative) Urine Bilirubin 2+ H (Negative) Urine Urobilinogen Negative (Negative) Ur Leukocyte Esterase Negative (Negative) Urine WBC (Auto) 1-5 (0-5) /hpf Urine RBC (Auto) 5-10 H (0-4) /hpf U Hyaline Cast (Auto) 0 (0-5) /lpf U Epithel Cells (Auto) 20-30 H (0-5) /lpf Urine Bacteria (Auto) Negative (Negative) Hepatitis A IgM Ab Hep Bs Antigen Hep Bs Ag Confirmation Hep B Core IgM Ab Hepatitis C Ab (EIA) Hep C Ab Signal/Cutoff SARS-CoV-2, RNA, NAAT (NEGATIVE) 04/07/22 04/07/22 04/07/22 Range/Units Unknown 06:39 06:39 WBC 7.37 (4.8-10.8) K/ul RBC 5.32 H (3.93-5.22) M/uL Hgb 15.5 (12.0-16.0) g/dl Hct 45.6 H (34.1-44.9) % MCV 85.7 (80.0-100.0) fL MCH 29.1 (25.0-34.0) pg MCHC 34.0 (32.0-36.0) g/dL RDW Std Deviation 42.1 (36.4-46.3) fL RDW Coeff of Jenelle 13.5 (11.5-14.5) % Plt Count 199 (130-400) K/uL MPV 11.5 (9.4-12.3) fL Immature Gran % (Auto) 0.3 % Neut % (Auto) 64.5 % Lymph % (Auto) 22.0 % [place] % (Auto) 6.9 % Eos % (Auto) 5.8 % Baso % (Auto) 0.5 % Neut # (Auto) 4.75 (1.4-6.5) K/uL Lymph # (Auto) 1.62 (1.2-3.4) K/uL [place] # (Auto) 0.51 (0.24-0.82) K/uL Eos # (Auto) 0.43 (0-0.50) K/uL Baso # (Auto) 0.04 (0-0.2) K/uL Immature Gran # (Auto) 0.02 (0.00-0.02) K/uL PT (9.0-12.0) Seconds INR (0.9-1.1) APTT (21.0-31.0) Seconds PTT Ratio Sodium (136-145) mmol/L Potassium (3.5-5.1) mmol/L Chloride (98-107) mmol/L Carbon Dioxide (21-32) mmol/L Anion Gap (3-11) BUN (6-23) mg/dl Creatinine (0.6-1.2) mg/dl Est Cr Clr Drug Dosing ml/min Est GFR ( Amer) ml/min Est GFR (Non-Af Amer) ml/min BUN/Creatinine Ratio (10-20) Glucose (70-99(Fasting)) mg/dl Calcium (8.5-10.1) mg/dl Total Bilirubin (0.2-1.0) mg/dl AST (13-39) U/L ALT (7-52) U/L Alkaline Phosphatase (34-104) U/L Troponin I High Sens (0-14) pg/ml Total Protein (6.0-8.3) gm/dl Albumin (3.4-5.0) gm/dl Globulin (2.5-4.0) gm/dl Albumin/Globulin Ratio (0.9-2) Lipase (11-82) U/L Urine Color Urine Appearance (Clear) Urine pH (4.5-7.5) Ur Specific [place] (1.000-1.030) Urine Protein (Negative) Urine Glucose (UA) (Negative) Urine Ketones (Negative) Urine Blood (Negative) Urine Nitrite (Negative) Urine Bilirubin (Negative) Urine Urobilinogen (Negative) Ur Leukocyte Esterase (Negative) Urine WBC (Auto) (0-5) /hpf Urine RBC (Auto) (0-4) /hpf U Hyaline Cast (Auto) (0-5) /lpf U Epithel Cells (Auto) (0-5) /lpf Urine Bacteria (Auto) (Negative) Hepatitis A IgM Ab Pending Hep Bs Antigen Pending Hep Bs Ag Confirmation Pending Hep B Core IgM Ab Pending Hepatitis C Ab (EIA) Pending Hep C Ab Signal/Cutoff Pending SARS-CoV-2, RNA, NAAT POSITIVE A* (NEGATIVE)
[2022-04-07] MEDS: LACTATED RINGER'S 1,000 ML IV SCH ×2 (11:42→18:43)
[2022-04-07] MEDS: PIPERACILLIN/TAZOBACTAM 3.375 GM in DEXTROSE 5% 100 ML IV SCH ×2 (12:49→20:45)
[2022-04-07] MEDS ORDERED: ENOXAPARIN INJ 40 MG/0.4 ML SYR SQ SCH (21:00)
[2022-04-08] MEDS: PIPERACILLIN/TAZOBACTAM 3.375 GM in DEXTROSE 5% 100 ML IV SCH ×3 (03:00→21:42)
[2022-04-08] MEDS: LACTATED RINGER'S 1,000 ML IV SCH ×3 (03:00→19:15)
[2022-04-08 07:23] LABS: Basophils # (auto) 0.04 K/uL (0-0.2); Basophils % (auto) 0.9 %; Eosinophils # (auto) 0.43 K/uL (0-0.50); Eosinophils % (auto) 9.4 %; Hematocrit (blood only) 41.5 % (34.1-44.9); Immature Granulocytes # (auto) 0.02 K/uL (0.00-0.02); Immature Granulocytes % (auto) 0.4 %; Lymphocytes % (auto) 37.1 %; Mean Corpuscular Hemoglobin 29.2 pg (25.0-34.0); Mean Corpuscular Hgb Conc 33.7 g/dL (32.0-36.0); Mean Corpuscular Volume 86.5 fL (80.0-100.0); Monocytes # (auto) 0.29 K/uL (0.24-0.82); Monocytes % (auto) 6.3 %; Neutrophils % (auto) 45.9 %; Platelet Count 166 K/uL (130-400); RDW Standard Deviation 44.3 fL (36.4-46.3); White Blood Count 4.58 K/ul (4.8-10.8)
[2022-04-08 07:46] LABS: BUN Creatinine Ratio 6.5 (10-20); Creatinine Clr Calc Pharmacy 72.9 ml/min; Est GFR (African American) 78.4 ml/min; Est GFR (Non-African American) 67.7 ml/min; Potassium 3.7 mmol/L (3.5-5.1)
[2022-04-08 08:05] LABS: Albumin Globulin Ratio 1.4 (0.9-2); Albumin Level 3.6 gm/dl (3.4-5.0); Bilirubin,Total 6.4 mg/dl (0.2-1.0); Globulin 2.5 gm/dl (2.5-4.0); Total Protein 6.1 gm/dl (6.0-8.3)
[2022-04-08] MEDS ORDERED: INDOMETHACIN 50 MG SUPP PR ONE ×2 (08:13→14:50)
--- NOTE | 2022-04-08 10:26 | Gastroenterology Progress Note ---
Date of Service April 08, 2022 Assessment & Plan (1) Choledocholithiasis with obstruction: Plan: Patient is a 61 years old female who is status postcholecystectomy who developed back pain and , noted to have elevated LFTs, CT showing likely choledocholithiasis. She is also COVID +. - NPO - Continue IV antibiotics - Plan for ERCP in OR by Dr. Marisol Lyons today - Trend LFTs - COVID precautions per protocol (2) Status post laparoscopic cholecystectomy: Admission and Anticipated Discharge Date Admission Date: April 07, 2022 Supervising Physician Co-Signing Physician Notes I saw and evaluated the patient. We were asked to evaluate the patient with suspected choledocholithiasis. The patient had a cholecystectomy performed about 6 to 8 weeks ago and was doing well until approximately 2 weeks ago when she began to develop intermittent back discomfort. He notes that this progress over the last week and she developed jaundice over the weekend. Having some subjective fevers at home but denies chills or rigors Physical examination scleral icterus noted right upper quadrant tenderness noted Impression: Patient presenting with signs and symptoms suggestive of retained common bile duct stones in the setting of a recent cholecystectomy. We are planning to do ERCP with biliary decompression this afternoon. I discussed the risks and benefits of the procedures to include bleeding, infection, perforation, pain, failed biliary cannulation need for follow-up studies and the increased risk of bleeding given her ongoing use of anticoagulation as an outpatient. Subjective Patient reports that she is feeling somewhat fatigued, however denies any chest pain, shortness of breath, abdominal pain, nausea or vomiting. Review of Systems Review of Systems: All systems reviewed & are unremarkable except as noted in HPI & below Physical Exam Constitutional: WD/WN, vitals as above well groomed, cooperative and comfortable Eyes: PERRL, conjunctivae normal, anicteric sclerae ENMT: external ear and nose normal, oropharynx normal Respiratory: normal respiratory effort, lungs clear to auscultation Cardiovascular: RRR, no murmur, no edema Gastrointestinal (Abdomen): normal bowel sounds, soft, nontender, no hepatosplenomegaly Skin: no rashes, warm and dry + jaundice Psychiatric: A+Ox3, euthymic affect Lymphatic: no lymphedema Results & Data ([facility]) Vital Signs (Past 12 Hours) Vital Signs Temp Pulse Pulse Resp BP Pulse Ox O2 Del Method 04/08/22 07:47 36.6 C 76 18 149/65 H 98 Room Air 04/08/22 07:00 62 04/08/22 02:57 36.5 C 61 18 123/76 95 Room Air 04/07/22 23:17 69 04/07/22 23:13 36.5 C 66 18 135/77 94 Room Air (1) Choledocholithiasis with obstruction Cholecystitis acuity: acute Cholecystitis presence: with cholecystitis Qualified Code(s): K80.43 - Calculus of bile duct with acute cholecystitis with obstruction
--- NOTE | 2022-04-08 11:36 | Anesthesiology Consultation ---
Date of Service April 08, 2022 Assessment & Plan (1) Encounter for pre-operative examination: Chart Review Chart Review: Pending: Refer to Additional Notes / Consult section (Will speak with Dr Lyons re: necessity of procedure while covid positive) History Surgery Operation Date: 04/08/22 11:00 Proposed Procedures p Endoscopic Retrograde Cholangiopancreatogram - Marisol Lyons, Height/Weight Height: 5 ft 6 in Weight: 88.7 kg Allergies Allergy/AdvReac Type Severity Reaction Status Date / Time No Known Allergies Allergy Unknown Verified 04/07/22 08:23 Medications Home Medications Medication Instructions Recorded Confirmed Last Taken multivitamin 1 tab PO DAILY 05/22/18 04/07/22 02/09/22 aspirin 81 mg tablet,delayed 81 mg PO QPM 02/20/21 04/07/22 02/09/22 release hydroxyzine HCl 25 mg tablet 25 mg PO QID PRN Situational 03/06/21 04/07/22 Unknown anxiety #60 tabs docusate sodium 100 mg capsule 100 mg PO BID 02/17/22 04/07/22 Unknown (Stool Softener) ezetimibe 10 mg tablet (Zetia) 10 mg PO DAILY #90 tabs 02/24/22 04/07/22 Unknown propranolol 20 mg tablet 20 mg PO BID #180 tabs 02/24/22 04/07/22 Unknown omega-3 fatty acids-fish oil 684 1 cap PO DAILY 04/07/22 04/07/22 Unknown mg-1,200 mg capsule,delayed release rivaroxaban 20 mg tablet (Xarelto) 20 mg PO QPM 04/07/22 04/07/22 Unknown Active Medications Generic Name Dose Route Start Last Admin Trade Name Freq PRN Reason Stop Dose Admin Enoxaparin Sodium 40 mg 04/07/22 21:00 04/07/22 20:45 Enoxaparin Inj 40 Mg/0.4 Ml Syr SQ 05/07/22 20:59 40 mg QPM DENA Administration Piperacillin Sod/Tazobactam 115 mls @ 28.75 mls/hr 04/07/22 12:00 04/08/22 11:12 Sod 3.375 gm/ Dextrose IV 04/17/22 11:59 28.8 mls/hr Q8H DENA Administration Protocol Lactated Ringer's 1,000 mls @ 125 mls/hr 04/07/22 11:00 04/08/22 11:12 Lr IV 05/07/22 10:59 125 mls/hr .Q8H DENA Administration Acetaminophen 1,000 mg in 100 mls @ 400 mls/hr 04/07/22 11:07 04/07/22 15:00 Ofirmev IV 04/10/22 11:06 Infused Q8H PRN Infusion 1st Line Pain or Fever Past Medical History Medical History Acute leg pain Acute upper abdominal pain Chronic back pain History of Lyme disease May-Thurner syndrome Nausea & vomiting Post-operative nausea and vomiting Psoriasis Past Family History Family History Father Myocardial infarction Cardiac disorder Mother Alcohol abuse COPD (chronic obstructive pulmonary disease) Liver cancer Gallbladder disease Grandmother (Maternal) Alcohol abuse Cardiac disorder COPD (chronic obstructive pulmonary disease) Liver cancer Myocardial infarction Anxiety Gallbladder disease Family/Other History of blood clots Sister Anxiety Gallbladder disease Denies family history of Ovarian cancer Prostate cancer Breast cancer Colorectal cancer Past Surgical History Surgical History H/O tubal ligation History of hysterectomy Hx laparoscopic cholecystectomy (02/13/22) Laparoscopic Cholecystectomy(Not Applicable) - Misha Jaffe, Hx of colonoscopy Hx of tonsillectomy S/P section Social History Smoking Status: Never smoker Hx Alcohol Use: No Hx Substance Use: No substance use type: does not use Physical Exam Vital Signs Last Vital Signs Temp 36.6 C 04/08/22 07:47 Pulse 76 04/08/22 07:47 Resp 18 04/08/22 07:47 BP 149/65 H 04/08/22 07:47 Pulse Ox 98 04/08/22 07:47 O2 Del Method 04/08/22 07:47 Testing Laboratory Results 04/08/22 07:03 04/08/22 07:03 PT 12.4 Seconds (9.0-12.0) H 04/07/22 Unknown INR 1.2 (0.9-1.1) H 04/07/22 Unknown APTT 34.8 Seconds (21.0-31.0) H 04/07/22 Unknown Urine Color Dark Yellow 04/07/22 Unknown Urine Appearance Clear (Clear) 04/07/22 Unknown Urine pH 6.0 (4.5-7.5) 04/07/22 Unknown Ur Specific [place] 1.035 (1.000-1.030) H 04/07/22 Unknown Urine Protein Negative (Negative) 04/07/22 Unknown Urine Glucose (UA) Negative (Negative) 04/07/22 Unknown Urine Ketones Negative (Negative) 04/07/22 Unknown Urine Nitrite Negative (Negative) 04/07/22 Unknown Ur Leukocyte Esterase Negative (Negative) 04/07/22 Unknown Urine WBC (Auto) 1-5 /hpf (0-5) 04/07/22 Unknown Urine RBC (Auto) 5-10 /hpf (0-4) H 04/07/22 Unknown U Hyaline Cast (Auto) 0 /lpf (0-5) 04/07/22 Unknown U Epithel Cells (Auto) 20-30 /lpf (0-5) H 04/07/22 Unknown Urine Bacteria (Auto) Negative (Negative) 04/07/22 Unknown covid positive on 04/07/22 Electrocardiogram Date: 04/07/22 Findings: + NSR @ (75) Chest X-Ray Date: 04/07/23 Findings: + NAD
[2022-04-08] MEDS ORDERED: LIDOCAINE 2% MPF LOCAL 5 ML VIAL INFIL ONE (12:10)
[2022-04-08] MEDS ORDERED: fentaNYL citrate 100 MCG/2 ML VIAL ONE (12:10)
[2022-04-08] MEDS ORDERED: PROPOFOL IV EMULSION 10 MG/ML 20 ML VIAL IV ONE (12:10)
[2022-04-08] MEDS ORDERED: MIDAZOLAM HCL 1 MG/ML 2ML VIAL ONE (12:11)
[2022-04-08] MEDS ORDERED: SUCCINYLCHOLINE CHLORIDE 20 MG/ML 10 ML VIAL IV ONE (12:25)
[2022-04-08] MEDS ORDERED: DEXAMETHASONE SOD INJ 4 MG/ML VIAL ONE (12:25)
[2022-04-08] MEDS ORDERED: ROCURONIUM BROMIDE 10 MG/ML 5 ML VIAL IV ONE (12:25)
[2022-04-08] MEDS ORDERED: ONDANSETRON INJ 2 MG/ML 2 ML VIAL ONE (12:25)
--- NOTE | 2022-04-08 13:26 | Surgery Progress Note ---
Date of Service April 08, 2022 Assessment & Plan (1) Choledocholithiasis with obstruction: Plan: 61y F s/p lap silas on 02/12/[address] Jaffe here with findings of choledocholithiasis Today WBC:4, Tb: 6.4, Ast: 251 Ast:634 AlkP: 254 Abdomen soft and non tender. + jaundices Pt on schedule for ERCP with GI today On precautions given new Covid dx on admission No indications for surgical intervention Admission and Anticipated Discharge Date Admission Date: April 07, 2022 Subjective Patient says she is feeling better than yesterday. No more abdominal pain. No n/v. No respiratory symptoms Physical Exam Physical Exam: awake/alert, no distress Respiratory: normal respiratory effort Gastrointestinal (Abdomen): Percussion/Palpation: abdomen soft; abdomen nontender Skin: + jaundice Results & Data ([facility]) Vital Signs (Past 12 Hours) Vital Signs Temp Pulse Pulse Resp BP Pulse Ox O2 Del Method 04/08/22 11:34 36.8 C 65 18 131/76 97 Room Air 04/08/22 07:47 36.6 C 76 18 149/65 H 98 Room Air 04/08/22 07:00 62 04/08/22 02:57 36.5 C 61 18 123/76 95 Room Air PG Care Time/CCT Total # of Minutes Spent Total Time Spent with Patient: Total time spent is greater than 50% in coordination of care (as documented) at patient's floor/unit and/or counseling patient: Coding Level of Care Code 19148 Subseq Hosp Care Lvl 1 Diagnoses Choledocholithiasis with obstruction K80.43 Cholecystitis acuity: acute Cholecystitis presence: with cholecystitis (1) Choledocholithiasis with obstruction Cholecystitis acuity: acute Cholecystitis presence: with cholecystitis Qualified Code(s): K80.43 - Calculus of bile duct with acute cholecystitis with obstruction
--- NOTE | 2022-04-08 14:50 | History & Physical Bridge Note ---
Date of Service April 08, 2022 History & Physical Bridge Note I have examined the patient, reviewed the History & Physical and in the interval since the performance of the History & Physical I have noted the following changes of clinical significance: no changes noted
[2022-04-08] MEDS ORDERED: ATROPINE SULFATE 0.1 MG/ML 10ML SYR IV PRN (15:00)
[2022-04-08] MEDS ORDERED: ONDANSETRON INJ 2 MG/ML 2 ML VIAL IV PRN (15:00)
[2022-04-08] MEDS ORDERED: PROMETHAZINE HCL 12.5 MG in SODIUM CHLORIDE 0.9% 50 ML IV PRN (15:00)
[2022-04-08] MEDS ORDERED: LABETALOL HCL IV 5 MG/ML 20ML IV PRN (15:00)
[2022-04-08] MEDS ORDERED: fentaNYL citrate 100 MCG/2 ML VIAL IV PRN (15:00)
[2022-04-08] MEDS ORDERED: KETOROLAC 30 MG/ML VIAL IV PRN (15:00)
--- NOTE | 2022-04-08 15:39 | GI REPORT ---
Patient Name: Maeve Feliciano Procedure Date: 04/08/2022 2:55 PM Date of : 1960 Admit Type: Inpatient Age: 61 Gender: Female Attending MD: Marisol Lyons DO Procedure: ERCP Providers: Marisol Lyons DO Referring MD: Yoni Alvarez, Yrn Martinez Md, Misha Jaffe Do Indications: Abdominal pain of suspected biliary origin, Jaundice Medicines: General Anesthesia Complications: No immediate complications. Estimated blood loss: Minimal. Estimated Blood Loss: Estimated blood loss was minimal. Procedure: Pre-Anesthesia Assessment: - Prior to the procedure, a History and Physical was performed, and patient medications, allergies and sensitivities were reviewed. The patient's tolerance of previous anesthesia was reviewed. - The risks and benefits of the procedure and the sedation options and risks were discussed with the patient. All questions were answered and informed consent was obtained. - Patient identification and proposed procedure were verified prior to the procedure by the physician, the nurse and the manager radio. The procedure was verified in the procedure room. - Pre-procedure physical examination revealed no contraindications to sedation. - ASA Grade Assessment: III - A patient with severe systemic disease. - After reviewing the risks and benefits, the patient was deemed in satisfactory condition to undergo the procedure. - The anesthesia plan was to use general anesthesia. - Immediately prior to administration of medications, the patient was re-assessed for adequacy to receive sedatives. - The heart rate, respiratory rate, oxygen saturations, blood pressure, adequacy of pulmonary ventilation, and response to care were monitored throughout the procedure. - The physical status of the patient was re-assessed after the procedure. After obtaining informed consent, the scope was passed under direct vision. Throughout the procedure, the patient's blood pressure, pulse, and oxygen saturations were monitored continuously. The Duodenoscope was introduced through the mouth, and advanced to the duodenum and used to inject contrast into the bile duct. The ERCP was accomplished without difficulty. The patient tolerated the procedure well. Findings: A director of scout work film of the abdomen was obtained. Surgical clips, consistent with a previous cholecystectomy, were seen in the area of the right upper quadrant of the abdomen. The esophagus was successfully intubated under direct vision without detailed examination of the pharynx, larynx, and associated structures, and upper GI tract. The upper GI tract was grossly normal. The major papilla was small. The bile duct was deeply cannulated with the short-nosed traction sphincterotome and guidewire. Contrast was injected. I personally interpreted the bile duct images. Contrast extended to the hepatic ducts. A cholecystectomy had been performed. The lower third of the main bile duct contained filling defect(s) thought to be a stone. Biliary sphincterotomy was made with a Fusion OMNI sphincterotome using ERBE electrocautery. There was no post-sphincterotomy bleeding. To discover objects, the biliary tree was swept with a 12 mm balloon starting at the bifurcation. Two stones were removed. No stones remained. One 10 Fr by 7 cm biliary stent with a single external flap and a single internal flap was placed 7 cm into the common bile duct. Bile flowed through the stent. The stent was in good position. The endoscope was withdrawn from the patient. Indomethacin 100 mg was given via suppository to decrease the risk of post-ERCP pancreatitis (PEP). Impression: - The major papilla appeared to be small. - A filling defect consistent with a stone was seen on the cholangiogram. - The patient has had a cholecystectomy. - Choledocholithiasis was found. Complete removal was accomplished by biliary sphincterotomy and balloon extraction. - A biliary sphincterotomy was performed. - The biliary tree was swept. - One biliary stent was placed into the common bile duct. - Indomethacin given to decrease risk of post-ERCP pancreatitis. Recommendation: - Avoid aspirin and nonsteroidal anti-inflammatory medicines/anticoagulaiton for 5 days. - Clear liquid diet. - Use broad spectrum antibiotics for 7 days. - Repeat ERCP in 6 weeks to remove stent. Marisol Lyons D.O. Marisol Lyons DO 04/08/2022 3:39:14 PM This report has been signed electronically. Note Initiated On: 04/08/2022 2:55 PM Number of Addenda: 0 I attest to the content of the Intraoperative Record and orders documented therein, exceptions below {[id number]}
--- NOTE | 2022-04-08 15:40 | Post Operative Brief Note ---
Immediate Post Op Note v1 Date of Surgery April 08, 2022 Pre & Post Diagnosis Operation Date: 04/08/22 11:00 Pre-Op Diagnosis: CHOLEDOSCHOLITHIASIS Post-Op Diagnosis: CBD stones I identified the patient and participated in the time-out.: Yes Procedure Operation Date: 04/08/22 11:00 Actual Procedures p Endoscopic Retrograde Cholangiopancreato/sphincterotomy with stone extrac and stent place(Left) - Marisol Lyons DO Surgeon Marisol Lyons, Senior Managing Director none Estimated Blood Loss 0 Findings Consistent with Post-Op Diagnosis
--- NOTE | 2022-04-08 15:41 | Communication Note ---
Date of Service: April 08, 2022 The patient went ERCP this afternoon for suspected choledocholithiasis. The patient was found to have 2 stones within the common bile duct. A small biliary sphincterotomy was performed, stone extraction performed, biliary stent was placed. Recommendations Patient may have clear liquids today Continue IV hydration overnight Complete a 7-day course of antibiotic coverage With use of nonsteroidals and anticoagulation for 5 more days please Repeat ERCP for biliary stent removal in 6 to 8 weeks
--- NOTE | 2022-04-08 15:46 | Anesthesiology Progress Note ---
Date of Service April 08, 2022 Anesthesia Post Procedure Vital Signs Vital Signs: Temp Pulse Pulse Pulse Resp BP Pulse Ox 04/08/22 15:37 36.9 C 86 19 145/78 H 100 04/08/22 14:56 83 04/08/22 14:37 37.2 C 73 18 164/80 H 100 04/08/22 11:34 36.8 C 65 18 131/76 97 04/08/22 07:47 36.6 C 76 18 149/65 H 98 04/08/22 07:00 62 04/08/22 02:57 36.5 C 61 18 123/76 95 04/07/22 23:17 69 04/07/22 23:13 36.5 C 66 18 135/77 94 04/07/22 19:38 36.6 C 65 18 131/74 95 04/07/22 16:48 36.5 C 62 18 132/82 95 O2 Del Method O2 Flow Rate 04/08/22 15:37 Oxymask 6 04/08/22 14:56 04/08/22 14:37 Room Air 04/08/22 11:34 Room Air 04/08/22 07:47 Room Air 04/08/22 07:00 04/08/22 02:57 Room Air 04/07/22 23:17 04/07/22 23:13 Room Air 04/07/22 19:38 Room Air 04/07/22 16:48 Room Air Transfer of Care Handoff Completed per policy Notes Mental Status: alert / awake / arousable Patient Amnestic to Procedure: Yes Nausea / Vomiting: adequately controlled Pain: adequately controlled Airway Patency, RR, SpO2: stable & adequate BP & HR: stable & adequate Hydration State: stable & adequate Anesthetic Complications: no major complications apparent
--- NOTE | 2022-04-08 15:48 | Fluoroscopy Report ---
INTRAOPERATIVE RADIOGRAPH CLINICAL HISTORY: ERCP. Fluoroscopy time: 13 seconds. FINDINGS: A single spot fluoroscopic image of the right upper quadrant is presented. Cholecystectomy clips are noted. A catheter is present within the common bile duct. A balloon sweep of the duct is be ing performed. The intrahepatic ducts are not opacified. IMPRESSION: Intraoperative ERCP image as above. See operative report for detailed findings. Electronically signed by: Srinivas Bernstein M.D. 04/08/2022 3:47 PM
[2022-04-09] MEDS: LACTATED RINGER'S 1,000 ML IV SCH (03:00)
[2022-04-09] MEDS: PIPERACILLIN/TAZOBACTAM 3.375 GM in DEXTROSE 5% 100 ML IV SCH ×3 (04:12→19:48)
--- NOTE | 2022-04-09 07:20 | Hospitalist Progress Note ---
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 Will continue to hold Xarelto s/p ERCP and treat with Lovenox prophylactically below. (3) Hypertension: Plan: Hold propranolol 20 mg p.o. twice daily to avoid hypotension Plan VTE Prophylaxis - Lovenox 40mg SQ daily Diet - clear liquids Disposition - continue on PCU Admission and Anticipated Discharge Date Admission Date: April 07, 2022 Subjective No abdominal pain following ERCP. Having slight cough after general anesthesia. No nausea or vomiting. Toleratin Review of Systems Review of Systems: All systems reviewed & are unremarkable except as noted in Subjective Physical Exam Constitutional: WD/WN, vitals as above Respiratory: normal respiratory effort, lungs clear to auscultation Cardiovascular: RRR, no murmur, no edema Gastrointestinal (Abdomen): Percussion/Palpation: + abdomen tender (milder RUQ) and abdomen soft; no guarding and abdomen not rigid Psychiatric: A+Ox3, euthymic affect Results & Data Results & Data ([facility]) Vital Signs (Past 12 Hours) Vital Signs Temp Pulse Pulse Resp BP Pulse Ox O2 Del Method 04/09/22 07:12 61 04/08/22 19:58 65 04/09/22 04:00 36.6 C 55 L 20 151/76 H 94 Room Air 04/08/22 23:01 36.5 C 62 18 149/76 H 92 Room Air 04/08/22 20:07 36.8 C 69 20 171/93 H 94 Room Air PG Care Time/CCT Total # of Minutes Spent Total Time Spent with Patient: Total time spent is greater than 50% in coordination of care (as documented) at patient's floor/unit and/or counseling patient: Coding Level of Care Code 24927 Subseq Hosp Care Lvl 2 Diagnoses Choledocholithiasis with obstruction K80.43 Cholecystitis acuity: acute Cholecystitis presence: with cholecystitis May-Thurner syndrome I87.1 Hypertension I10 (1) Choledocholithiasis with obstruction Cholecystitis acuity: acute Cholecystitis presence: with cholecystitis Qualified Code(s): K80.43 - Calculus of bile duct with acute cholecystitis with obstruction
[2022-04-09] MEDS ORDERED: SODIUM CHLORIDE 0.9% 500 ML IV SCH (08:30)
[2022-04-09] MEDS ORDERED: SODIUM CHLORIDE 0.9% 1000ML 1,000 ML IV SCH (09:00)
--- NOTE | 2022-04-09 09:04 | Gastroenterology Progress Note ---
Date of Service April 09, 2022 Assessment & Plan (1) Choledocholithiasis with obstruction: Plan: Patient is a 61 years old female who is status postcholecystectomy who developed back pain and , noted to have elevated LFTs, CT showing likely choledocholithiasis. She is also COVID +. S/P ERCP 04/08 with choledocholithiasis removal, biliary sphincterectomy, CBD stent placement. Clinically doing well, AM labs pending. - Trend LFTs - IVF changed to NS @ 75ml/hr - Advance diet as tolerated - Broad spectrum antibiotics x 7 days total - Avoid ASA and NSAIDs, anticoagulation for 5 days; however if anticoagulation needs to be re-started sooner given clot risks, may restart 48hrs after biliary sphincterectomy (discussed w Dr. Lyons) - Repeat ERCP in 6 week's time to remove biliary stent - GI to sign off; recall prn - COVID precautions per protocol (2) Status post laparoscopic cholecystectomy: Admission and Anticipated Discharge Date Admission Date: April 07, 2022 Subjective Pt reports mild abd pain only when palpated. Denies fever, chills, CP, SOB, n/v. Is passing flatus, no BMs. Notices that her urine color is getting carboy filler. AM labs pending Review of Systems Review of Systems: All systems reviewed & are unremarkable except as noted in HPI & below Physical Exam Constitutional: WD/WN, vitals as above well groomed, cooperative and comfortable Eyes: PERRL, conjunctivae normal, anicteric sclerae ENMT: external ear and nose normal, oropharynx normal Respiratory: normal respiratory effort, lungs clear to auscultation Cardiovascular: RRR, no murmur, no edema Gastrointestinal (Abdomen): normal bowel sounds, soft, nontender, no hepatosplenomegaly Skin: no rashes, warm and dry Psychiatric: A+Ox3, euthymic affect Lymphatic: no lymphedema Results & Data ([facility]) Vital Signs (Past 12 Hours) Vital Signs Temp Pulse Pulse Resp BP Pulse Ox O2 Del Method 04/09/22 07:12 61 04/09/22 04:00 36.6 C 55 L 20 151/76 H 94 Room Air 04/08/22 23:01 36.5 C 62 18 149/76 H 92 Room Air (1) Choledocholithiasis with obstruction Cholecystitis acuity: acute Cholecystitis presence: with cholecystitis Qualified Code(s): K80.43 - Calculus of bile duct with acute cholecystitis with obstruction
[2022-04-09 09:19] LABS: Albumin Globulin Ratio 1.6 (0.9-2); Albumin Level 3.6 gm/dl (3.4-5.0); BUN Creatinine Ratio 11.1 (10-20); Bilirubin,Total 2.7 mg/dl (0.2-1.0); Creatinine Clr Calc Pharmacy 83.4 ml/min; Est GFR (African American) 91.5 ml/min; Est GFR (Non-African American) 78.9 ml/min; Globulin 2.2 gm/dl (2.5-4.0); Potassium 3.8 mmol/L (3.5-5.1); Total Protein 5.8 gm/dl (6.0-8.3)
[2022-04-09] MEDS ORDERED: hydrOXYzine HCl 25 MG TAB PO PRN (10:10)
[2022-04-09] MEDS: PROPRANOLOL HCL 20 MG TAB PO SCH ×2 (11:29→19:56)
--- NOTE | 2022-04-09 12:15 | Surgery Progress Note ---
Date of Service April 09, 2022 Assessment & Plan (1) Choledocholithiasis with obstruction: Plan: ERCP results reviewed LFTs are trending down No need for any surgical interventions Once she is tolerating a diet she can be discharged from a surgical standpoint She is following up with GI for repeat ERCP and stent removal in 6 weeks Surgical sign off at this time, please call with any questions or concerns (2) Status post laparoscopic cholecystectomy: Admission and Anticipated Discharge Date Admission Date: April 07, 2022 Subjective Patient seen and examined. Denies abdominal pain. Complains of mild sore throat. Afebrile. Review of Systems Constitutional: no fever and no chills Physical Exam Constitutional: WD/WN, vitals as above Gastrointestinal (Abdomen): Inspection/Auscultation: abdomen normal to inspection; abdomen not distended Percussion/Palpation: abdomen soft; abdomen nontender and no guarding Results & Data ([facility]) Vital Signs (Past 12 Hours) Vital Signs Temp Pulse Pulse Resp BP Pulse Ox O2 Del Method 04/09/22 07:12 61 04/09/22 04:00 36.6 C 55 L 20 151/76 H 94 Room Air PG Care Time/CCT Total # of Minutes Spent Total Time Spent with Patient: Total time spent is greater than 50% in coordination of care (as documented) at patient's floor/unit and/or counseling patient: Coding Level of Care Code 73896 Subseq Hosp Care Lvl 1 Diagnoses Choledocholithiasis with obstruction K80.43 Cholecystitis acuity: acute Cholecystitis presence: with cholecystitis Status post laparoscopic cholecystectomy Z90.49 (1) Choledocholithiasis with obstruction Cholecystitis acuity: acute Cholecystitis presence: with cholecystitis Qualified Code(s): K80.43 - Calculus of bile duct with acute cholecystitis with obstruction
[2022-04-09 13:41] LABS: HBSAG NON-REACTIVE (NON-REACTIVE); Hepatitis A Antibody IgM NON-REACTIVE (NON-REACTIVE); Hepatitis B Core Antibody IgM NON-REACTIVE (NON-REACTIVE)
--- NOTE | 2022-04-09 15:33 | Hospitalist Progress Note ---
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 Discussed anticoagulation with GI. Recommending 5 days without Xarelto if possible (at least 48 hours). Previous clot developed after 6 months of being off treatment therefore suspect safe to follow 5 day rule. (3) Hypertension: Plan: Restarted on propranolol 20mg PO BID Plan VTE Prophylaxis - Holding anticoagulation as post op ERCP Diet - regular Disposition - continue on med/tele Admission and Anticipated Discharge Date Admission Date: April 07, 2022 Anticipated date of discharge: 04/10/22 Subjective No abdominal pain. Tolerating advancement in diet. No nausea or vomiting. She reports skin color has improved. Denies any COVID symptoms. Review of Systems Review of Systems: All systems reviewed & are unremarkable except as noted in Subjective Physical Exam Constitutional: WD/WN, vitals as above Eyes: + anicteric sclerae; normal pupil size Respiratory: normal respiratory effort, lungs clear to auscultation Cardiovascular: RRR, no murmur, no edema Gastrointestinal (Abdomen): Inspection/Auscultation: abdomen normal to inspection and normal bowel sounds; abdomen not distended Percussion/Palpation: abdomen soft; abdomen nontender, no guarding and abdomen not rigid Musculoskeletal: no cyanosis or clubbing, extremities motor strength 5/5 Skin: no rashes, warm and dry Neurologic: moves all extremities and awake; not confused Psychiatric: A+Ox3, euthymic affect Results & Data Results & Data ([facility]) Vital Signs (Past 12 Hours) Vital Signs Temp Pulse Pulse Resp BP Pulse Ox O2 Del Method 04/09/22 15:13 70 04/09/22 07:12 61 04/09/22 04:00 36.6 C 55 L 20 151/76 H 94 Room Air PG Care Time/CCT Total # of Minutes Spent Total Time Spent with Patient: Total time spent is greater than 50% in coordination of care (as documented) at patient's floor/unit and/or counseling patient: Coding Level of Care Code 63272 Subseq Hosp Care Lvl 2 Diagnoses Choledocholithiasis with obstruction K80.43 Cholecystitis acuity: acute Cholecystitis presence: with cholecystitis May-Thurner syndrome I87.1 Hypertension I10 (1) Choledocholithiasis with obstruction Cholecystitis acuity: acute Cholecystitis presence: with cholecystitis Qualified Code(s): K80.43 - Calculus of bile duct with acute cholecystitis with obstruction
[2022-04-09] MEDS ORDERED: RIVAROXABAN 20 MG TAB PO SCH (21:00)
[2022-04-10] MEDS: PIPERACILLIN/TAZOBACTAM 3.375 GM in DEXTROSE 5% 100 ML IV SCH ×2 (04:39→12:33)
[2022-04-10] MEDS: PROPRANOLOL HCL 20 MG TAB PO SCH (08:04)
[2022-04-10] MEDS ORDERED: MULTIVITAMIN TAB PO SCH (09:00)
[2022-04-10] MEDS ORDERED: EZETIMIBE 10 MG TABLET PO SCH (09:00)
[2022-04-10 09:12] LABS: Albumin Globulin Ratio 1.4 (0.9-2); Albumin Level 3.7 gm/dl (3.4-5.0); BUN Creatinine Ratio 13.1 (10-20); Bilirubin,Total 1.7 mg/dl (0.2-1.0); Calcium 8.9 mg/dl (8.5-10.1); Est GFR (African American) 71.8 ml/min; Est GFR (Non-African American) 61.9 ml/min; Globulin 2.6 gm/dl (2.5-4.0); Potassium 3.4 mmol/L (3.5-5.1); Total Protein 6.3 gm/dl (6.0-8.3)
--- NOTE | 2022-04-10 14:46 | Discharge Summary ---
Date of Service April 10, 2022 Admission HPI Per Admitting Provider Maeve Feliciano is a 61 year old female who presents to the ER with back pain, dark urine, nausea, vomiting and diarrhea. She reports her symptoms started last week. On Thursday she could not get comfortable and her urine started turning dark. Her blood pressure was high at home. She started having nausea vomiting and loose stools therefore decided to come to the ER today. Her back pain is worse on deep inspiration and movement. She is currently not some back pain when lying still. She recently had a laparoscopic cholecystectomy on February 12 due to acute cholecystitis. In the ER SARS-CoV-2 PCR was positive. She previously had COVID in 2019 and does not have any of the same symptoms. She reports a mild cough which is not unusual for her. No fevers, chills, shortness of breath, loss of taste or smell, chest pain. She has been vaccinated twice with the MADS vaccine which caused this to be variable for the day therefore did not receive the booster. Principal Diagnosis Choledecholithiasis Discharge Exam Constitutional WD/WN, vitals as above Eyes + anicteric sclerae; normal pupil size ENMT external ear and nose normal, oropharynx normal Neck trachea midline, no thyromegaly Respiratory normal respiratory effort, lungs clear to auscultation Cardiovascular RRR, no murmur, no edema Gastrointestinal (Abdomen) Inspection/Auscultation: abdomen normal to inspection and normal bowel sounds; abdomen not distended Percussion/Palpation: abdomen soft; abdomen nontender, no guarding and abdomen not rigid Musculoskeletal no cyanosis or clubbing, extremities motor strength 5/5 Skin no rashes, warm and dry Neurologic moves all extremities and awake; not confused Psychiatric A+Ox3, euthymic affect Discharge Data Allergies Allergy/AdvReac Type Severity Reaction Status Date / Time No Known Allergies Allergy Unknown Verified 04/07/22 08:23 Consultations 04/07/22 06:19 ED Decision to Admit Stat 04/07/22 10:31 Consult Gastroenterology Routine Procedures Performed Operation Date: 04/08/22 11:00 Actual Procedures p Endoscopic Retrograde Cholangiopancreato/sphincterotomy with stone extrac and stent place(Left) - Marisol Lyons DO Ordered Studies 04/07/22 04:11 CT Abd and Pelvis [CT abd pelvis IV con only] Urgent 04/07/22 04:12 CT angio chest PE protocol Urgent 04/08/22 15:00 FL ERCP biliary ductal Routine Hospital Course (1) Choledocholithiasis with obstruction: As evidenced by elevated LFTs and dilated CBD on CT, lipase WNL S/P ERCP 04/08 with choledocholithiasis removal, biliary sphincterectomy, CBD stent placement. Clinically doing well treated with IV Zosyn and transitioned to PO augmentin at discharge. Patient will be on antibiotics for 4 additional days with augmentin. Advanced back to normal diet today, IV fluids stopped Pain relief with acetaminophen +/- Dilaudid as needed Appreciate gastroenterology management - follouwp with GI for stent removal in 6 weeks. 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 Discussed anticoagulation with GI. Recommending 5 days without Xarelto if possible (at least 48 hours). Previous clot developed after 6 months of being off treatment therefore suspect safe to follow 5 day rule. Patient will resume on 04/13 (3) Hypertension: Restarted on propranolol 20mg PO BID Total Time Total Time Spent Total Time Spent (In Minutes): 35 Discharge Plan Discharge Items Patient Disposition: Home - Self-Care Reason For Visit: CHOLEDOSCHOLITHIASIS Discharge Diagnosis: choledocholithiasis Condition on Discharge: Good Activity: Resume your previous activity Non-emergency contact: Primary Care Provider Call non-emergency contact if: you have any medication questions Follow-up/Referrals: Yoni Alvarez DO [Primary Care Provider] - 04/16/22 9:20 am Diet: Regular Addtl Attending Provider Instructions: Start first dose of antibiotics tonight. Take on a full stomach. Resume anticoagulation on 04/13 follow up with GI for repeat ERCP and stent removal in 6 weeks Pending Studies at Discharge: No Stand-Alone Forms: Extreme DA, Smoking Cessation Medications and DC Order Prescriptions: New amoxicillin-pot clavulanate 875-125 mg tablet 1 tab PO BID Qty: 8 0RF Continued ezetimibe [Zetia] 10 mg tablet 10 mg PO DAILY Qty: 90 3RF propranolol 20 mg tablet 20 mg PO BID Qty: 180 3RF hydroxyzine HCl 25 mg tablet 25 mg PO QID PRN (Reason: Situational anxiety) Qty: 60 1RF multivitamin Tablet 1 tab PO DAILY docusate sodium [Stool Softener] 100 mg capsule 100 mg PO BID omega-3 fatty acids-fish oil 684-1,200 mg Capsule,Delayed Release(Dr/Ec) 1 cap PO DAILY aspirin 81 mg Tablet,Delayed Release (Dr/Ec) 81 mg PO QPM Qty: 30 0RF Rx Instructions: resume 04/13 Xarelto 20 mg tablet 20 mg PO QPM Qty: 30 0RF Rx Instructions: restart 04/13 Discharge Orders: Discharge Order (Routine); Ordered 04/10/22 Ordered By: Randolph Colbert Admission Data Admit Date/Time: 04/07/22 07:58 Attending Provider: Randolph Coblert Admit Provider: Yrn Martinez Primary Care Provider: Yoni Alvarez Other Providers: Sandoval Conley Other Interventions: Discharge Summary Assessment (RN) Last Done: 04/10/22 14:14 Coding Level of Care Code D/C DAY MANAGEMENT >30 MINS Diagnoses Choledocholithiasis with obstruction K80.43 Cholecystitis acuity: acute Cholecystitis presence: with cholecystitis May-Thurner syndrome I87.1 Hypertension I10
== END 2022-04-10 15:57 | disposition home or self-care (01) | DRG 444 ==
LOC: ED 03:50 → EDINP 07:58 → SUATTDRO 07:58 → 2S 10:17 → 2W 04-08 19:46